=== PATIENT | female | born 1960 | race Caucasian/White ===

== ENCOUNTER 2019-11-19 15:08 | Outpatient (CLI) | payer OTHER, SELFPAY ==
--- NOTE | ~2019-11-19 | XR_ITS ---
XR chest 2V DATE: 11/19/2019 15:39 INDICATION: Cough, congestion, shortness of breath and fever for 3 weeks TECHNIQUE: PA and lateral views COMPARISON: None FINDINGS: Normal heart size. No hilar or mediastinal enlargement. No pulmonary infiltrate or consolid ation, pleural effusion or pulmonary vascular congestion or pneumothorax. IMPRESSION: No active cardiopulmonary disease Reviewed, dictated and finalized at location B. DESIGNER
== END 2019-11-19 15:09 | disposition home or self-care (01) ==
LOC: ANHIMG 15:13
PROVIDERS: PCP Internal Medicine; Visit Provider Internal Medicine
DX: R06.02 Shortness of breath (principal)
CPT/HCPCS: 71046

== ENCOUNTER 2019-11-20 11:00 | Outpatient (CLI) | payer OTHER, SELFPAY ==
--- NOTE | ~2019-11-20 | CT_ITS ---
EXAMINATION:CT chest wo con DATE: 11/20/2019 11:25 INDICATION: Shortness of breath and cough. TECHNIQUE: Computed tomography (CT) of the chest was performed without intravenous contrast. Automate d exposure control and iterative reconstruction technique were employed. The dose-length product (DLP ) was 156.12 mGy-cm. COMPARISON: Chest 2 views 11/19/2019 FINDINGS: The lungs demonstrate mild atelectasis. A calcified right lung nodule is consistent with ol d granulomatous disease. There is a small right pleural effusion. The heart size is normal. No perica rdial effusion. There are no pathologically enlarged lymph nodes. There is mild thoracic spondylosis. IMPRESSION: 1. Small right pleural effusion. Reviewed, dictated and finalized at location A. RUCTIONAL TECHNOLOGIST
[2019-11-20 12:28] LABS: Basophils Absolute Auto 0.1 K/mm3 (0.0-0.1); Basophils Percent Auto 0.5 % (0.2-1.2); Eosinophils Absolute Auto 0.1 K/mm3 (0-0.3); Eosinophils Percent Auto 1.3 % (0-4.4); Hemoglobin 12.4 g/dL (12.0-15.0); Immature Granulocyte Absolute 0.04 K/mm3 (0.00-0.031); Immature Granulocyte Percent A 0.4 % (0-0.5); Lymphocytes Absolute Auto 1.44 K/mm3 (0.9-3.2); Lymphocytes Percent Auto 14.7 % (18.3-44.2); Mean Corpuscular HGB Conc 32.6 g/dl (32-36); Mean Corpuscular Volume 107.3 fl (80-100); Mean Platelet Volume 9.8 fl (7.4-10.4); Monocytes Absolute Auto 0.7 K/mm3 (0.1-0.6); Monocytes Percent Auto 7.1 % (2.6-8.5); Neutrophils Absolute Auto 7.5 K/mm3 (1.3-6.7); Platelet Count Result 363 k/mm3 (150-375); Red Blood Count 3.54 M/mm3 (4.2-5.4); Red Cell Distribution Width 12.7 % (11.5-14.5); White Blood Count 9.8 K/mm3 (4.5-10.0)
[2019-11-20 12:41] LABS: Alanine Aminotransferase 15 U/L (4-35); Albumin Level 4.5 g/dL (3.5-5.1); Alkaline Phosphatase 93 U/L (38-126); Aspartate Amino Transferase 26 U/L (14-36); Bilirubin,Total 0.6 mg/dL (0.2-1.3); Blood Urea Nitrogen 9 mg/dL (7-17); Calcium 9.9 mg/dL (8.4-10.2); Carbon Dioxide 26 mmol/L (22-30); Chloride 99 mmol/L (98-107); Estimated Glomerular Filt Rate > 60; Glucose 107 mg/dL (65-105); Sodium 137 mmol/L (137-145)
[2019-11-20 15:21] LABS: Erythrocyte Sedimentation Rate 95 mm/hr (0-20)
[2019-11-22 11:06] LABS: CMV IgM Antibody <30.00 AU/mL (<30.00)
[2019-11-22 21:14] LABS: CRP, High Sensitivity >10.0 mg/L (***)
== END 2019-11-20 11:01 | disposition home or self-care (01) ==
PROVIDERS: PCP Internal Medicine; Visit Provider Internal Medicine
DX: B97.89 Other viral agents as the cause of diseases classified elsewhere (principal); J98.8 Other specified respiratory disorders; J90 Pleural effusion, not elsewhere classified
CPT/HCPCS: 36415; 36600; 71250; 80053; 85025; 85652; 86141; 86644; 86645; 87040

== ENCOUNTER 2019-11-21 12:47 | Outpatient (CLI) | payer OTHER, SELFPAY ==
[2019-11-21 13:16] LABS: Alveolar/Arterial O2 Gradient 48.1 mmHg; Base Excess ABG -0.7 mEq/l (+/-2.0); Carboxyhemoglobin 0.5 % THb (0-2.0); Device ROOM AIR; Fractional Inspired Oxygen 21 %; HCO3 ABG 22.8 mEq/l (22.0-26.0); Methemoglobin ABG 0.3 %THb (0-1.5); Oxygen Content ABG 16.5 %vol (16.0-22.0); Oxygen Saturation ABG 92.3 % (95.0-100.0); Oxyhemoglobin 89.7 % THb (90.0-100.0); PCO2 ABG 34.3 mmHg (35.0-45.0); PO2 ABG 60.6 mmHg (80.0-100.0); PO2 FiO2 Ratio Arterial Blood 2.89 %; Reduced Hemoglobin 9.5 %THb (0-5.0); Site Drawn RIGHT BRACHIAL; Total Hemoglobin 13.1 g/dL (12.0-18.0); pH ABG 7.441 (7.350-7.450)
== END 2019-11-21 12:48 | disposition home or self-care (01) ==
PROVIDERS: PCP Internal Medicine; Visit Provider Internal Medicine
DX: R06.02 Shortness of breath (principal); B97.89 Other viral agents as the cause of diseases classified elsewhere; J98.8 Other specified respiratory disorders; R50.9 Fever, unspecified
CPT/HCPCS: 36600; 82375; 82805; 83050

== ENCOUNTER 2019-11-22 13:13 | Outpatient (CLI) | payer OTHER, SELFPAY ==
[2019-11-22 13:39] LABS: D Dimer 1.02 ug/mL (<0.48)
== END 2019-11-22 13:14 | disposition home or self-care (01) ==
LOC: ANHLAB 13:15
PROVIDERS: PCP Internal Medicine; Visit Provider Internal Medicine
DX: R06.02 Shortness of breath (principal)
CPT/HCPCS: 36415; 85380

== ENCOUNTER 2019-11-23 16:36 | Outpatient (CLI) | payer OTHER, SELFPAY ==
--- NOTE | ~2019-11-23 | CT_ITS ---
EXAMINATION: CTA chest PE protocol DATE: 11/23/2019 18:10 INDICATION: Shortness of breath TECHNIQUE: Computed tomography (CT) pulmonary angiogram of the chest was performed with 100 mL Omnipa que-350 intravenous contrast. Additional 3D reconstructions utilizing coronal maximum intensity proje ction (MIP) were performed. Automated exposure control and iterative reconstruction technique were em ployed. The dose-length product was 378.51 mGy-cm. COMPARISON: 11/20/2019 FINDINGS: Good contrast opacification of the pulmonary arteries. There is mild streak artifact from dense contr ast in the superior vena cava and right atrium. Minimal scattered respiratory motion artifact which d oes not significantly limit evaluation. No pulmonary embolism. Mild atelectasis at the posterior sulc i of the bilateral lower lobes. Calcified right upper lobe nodule consistent with old granulomatous d isease. Trace right pleural effusion, decreased since prior study. Heart size is normal. No pericardi al effusion. Thoracic aorta is normal in caliber with no dissection. 1.8 x 1.2 cm likely reactive rig ht hilar lymph node. No other pathologically enlarged thoracic lymphadenopathy. Mild thoracic spondyl osis. IMPRESSION: 1. No pulmonary embolism. 2. Interval decrease in size of a now trace right pleural effusion. 3. Mildly enlarged likely reactive right hilar lymph node. Reviewed, dictated and finalized at location A. MANAGER
== END 2019-11-23 16:37 | disposition home or self-care (01) ==
LOC: ANHIMG 16:38
PROVIDERS: PCP Internal Medicine; Visit Provider Internal Medicine
DX: R06.02 Shortness of breath (principal); J90 Pleural effusion, not elsewhere classified; R59.0 Localized enlarged lymph nodes
CPT/HCPCS: 71275; Q9967

== ENCOUNTER → 2020-05-28 13:20 | Outpatient (CLI) | payer OTHER, SELFPAY ==
--- NOTE | ~2020-05-28 | DEXA_ITS ---
Bone Density Report Name: Perlita Amezcua Age: 59 Sex: Female Ethnicity: White Date of : 1960 Indication: monitoring treatment; height loss; hysterectomy; postmenopausal Referring Provider: Janki, Ayala Study: Bone densitometry was performed. Exam Date: May 28, 2020 Accession number: [id number] Bone Density: Region BMD T-score Z-score Classification AP Spine (L1-L4) 1.205 1.4 2.8 Normal Femoral Neck (Left) 0.922 0.7 1.9 Normal Total Hip (Left) 1.030 0.7 1.6 Normal Femoral Neck (Right) 0.886 0.3 1.6 Normal Total Hip (Right) 1.052 0.9 1.8 Normal Total Hip Mean 1.041 0.8 1.7 Normal World Health Organization criteria for BMD impression classify patients as: Normal (T-score at or above -1.0), Osteopenia (T-score between -1.0 and -2.5), or Osteoporosis (T-score at or below -2.5). 10-year Fracture Risk: FRAX not reported because: All T-scores for Spine Total, Hip Total, Femoral Neck at or above -1.0 Previous Exams: Region Exam Age BMD T-score BMD Change BMD Change Date g/cm2 vs Baseline vs Previous AP Spine(L1-L4) 05/28/2020 59 1.205 1.4 -0.056* -0.045* 12/19/2015 55 1.250 1.8 -0.011 -0.011 08/31/2012 52 1.261 1.9 Total Hip(Left) 05/28/2020 59 1.030 0.7 -0.001 -0.005 12/19/2015 55 1.036 0.8 0.004 0.004 08/31/2012 52 1.031 0.7 Total Hip(Right) 05/28/2020 59 1.052 0.9 0.000 -0.008 12/19/2015 55 1.060 1.0 0.008 0.008 08/31/2012 52 1.052 0.9 *Denotes significance at 95% confidence level, LSC for AP Spine = 0.022 g/cm2, LSC for Total Hip = 0.027 g/cm2 Clinical Information Provided by Patient: Is being treated for osteoporosis Has used the following medications: HRT (i.e. estrogen/hormone therapy), Vitamin D, MTV Has the following medical conditions: Hysterectomy, cervical cancer in her 30's Patient maximum height was 71 Menopause Age: 36 No regular weight bearing exercise Drinks caffeinated beverages Onset of menses at age 14 Number of children 0 Impression: The patient has normal bone mass. The BMD for the AP Spine(L1-L4) decreased, changing by -0.045 since the last DXA exam. Discussion: SIGNIFICANT BONE LOSS OBSERVED. Adherence to therapy (including calcium and vitamin D intake) should be assessed. If compliance is not a factor, review management and exclus
--- NOTE | ~2020-05-28 | MM_ITS ---
EXAMINATION: MM screening toney BI w glendy HISTORY: Screening TECHNIQUE: Craniocaudal and mediolateral oblique 3-D tomosynthesis images were obtained and synthetic 2-D images were generated. CAD analysis was submitted and interpreted. COMPARISON: Comparison to multiple prior studies sequentially, with oldest reviewed study dated 01/2016. BREAST PARENCHYMAL COMPOSITION: There are scattered areas of fibroglandular density. FINDINGS: There is no evidence of suspicious mass, calcification, or architectural distortion to sugg est malignancy in either breast. There has been no suspicious interval change. IMPRESSION: 1. No mammographic evidence of malignancy. 2. Recommend routine screening mammography in one year. BI-RADS Category 1: Negative Reviewed, dictated and finalized at location A.
== END ==
PROVIDERS: PCP Internal Medicine; Referring Provider Obstetrics & Gynecology Gynecology; Visit Provider Nurse Practitioner
DX: Z12.31 Encounter for screening mammogram for malignant neoplasm of breast (principal); Z78.0 Asymptomatic menopausal state
CPT/HCPCS: 77063; 77067; 77080

== ENCOUNTER → 2021-05-29 16:01 | Outpatient (CLI) | payer OTHER, BC, SELFPAY ==
--- NOTE | ~2021-05-29 | MM_ITS ---
EXAMINATION: MM screening [facility] BI w glendy HISTORY: Screening mammogram TECHNIQUE: Craniocaudal and mediolateral oblique 3-D tomosynthesis images were obtained and synthetic 2-D images were generated. CAD analysis was submitted and interpreted. COMPARISON: 05/28/2020, 03/15/2019, 02/24/2019 BREAST PARENCHYMAL COMPOSITION: There are scattered areas of fibroglandular density. FINDINGS: There is no evidence of suspicious mass, calcification, or architectural distortion to sugg est malignancy in either breast. There has been no suspicious interval change. IMPRESSION: 1. No mammographic evidence of malignancy. 2. Recommend routine screening mammography in one year. BI-RADS Category 1: Negative Reviewed, dictated and finalized at location A.
== END ==
PROVIDERS: PCP Internal Medicine; Visit Provider Nurse Practitioner
DX: Z12.31 Encounter for screening mammogram for malignant neoplasm of breast (principal)
CPT/HCPCS: 77063; 77067

== ENCOUNTER → 2022-05-31 14:58 | Outpatient (CLI) | payer BC, SELFPAY ==
--- NOTE | ~2022-05-31 | MM_ITS ---
EXAMINATION: MM screening toney BI w glendy HISTORY: Screening mammogram TECHNIQUE: Craniocaudal and mediolateral oblique 3-D tomosynthesis images were obtained and synthetic 2-D images were generated. CAD analysis was submitted and interpreted. COMPARISON: 05/29/2021, 05/28/2020, 03/15/2019 bilateral screening mammogram examinations BREAST PARENCHYMAL COMPOSITION: There are scattered areas of fibroglandular density. FINDINGS: There is no evidence of suspicious mass, calcification, or architectural distortion to sugg est malignancy in either breast. There has been no suspicious interval change. IMPRESSION: 1. No mammographic evidence of malignancy. 2. Recommend routine screening mammography in one year. BI-RADS Category 1: Negative Reviewed, dictated and finalized at location A.
== END ==
PROVIDERS: PCP Internal Medicine; Visit Provider Nurse Practitioner
DX: Z12.31 Encounter for screening mammogram for malignant neoplasm of breast (principal)
CPT/HCPCS: 77063; 77067

== ENCOUNTER 2023-03-18 00:26 | Day surgery (SDC) | payer BC, SELFPAY ==
[2023-03-04 10:14] VITALS: BMI 25.9
[2023-03-18 07:44] VITALS: BP 146/79; PULSE 65; RESP 16; TEMP 36.1; O2SAT 99
[2023-03-18] MEDS: LACTATED RINGERS 1,000 ML 150 ML IV CONT (07:51)
--- NOTE | 2023-03-18 08:08 | PM.HPGS ---
History of Present Illness History of Present Illness Consent: Risks, benefits, and alternatives have been discussed and questions answered. Patient agrees to proceed with procedure. Chief complaint: neoplasm screening Narrative: Perlita De Luna is a 62 year old female Presents for screening colonoscopy. Patient's current weight appetite and bowel movements are normal. She denies abdominal pain. Patient has had no bleeding. Family history is noncontributory. Previous colonoscopy 10 years ago was unremarkable. Review of Systems Review of Systems: Review of systems noncontributory. [facility] Past Medical History Medical History Chronic pain of left knee Dyslipidemia Hypothyroidism IFG (impaired fasting glucose) Megaloblastic anemia Surgical History Surgical History Hx of appendectomy Family History Family History Grandparent Malignant neoplasm of prostate Family history of malignant neoplasm of breast Family history of congestive heart failure Sibling Diabetes mellitus Social History Social History Smoking packs per day: 0.5 Smoking cigarettes per day: 10.0 Years smoked: 25 Smoking pack-years: 12.50 Smoking status: Former smoker Tobacco type: cigarettes Second hand tobacco smoke exposure: No Smoking end date: 10/17/05 Alcohol intake: current Alcohol use details: on occasion Substance use: never Substance use type: does not use Lack of Transportation: No Lack of Food: Never True Current Housing: I Have Housing Concerned About Future Housing: No Difficulty Paying Gas/Electric Bills: No Difficulty Paying for Meds: No Currently Unemployed: No Education: Trade/Vocational Certificate Difficulty w/ Childcare or Family Care: No Living arrangements: with family Spiritual care concerns: No Meds Home Medications and Allergies Home Medications Medication Instructions Recorded Confirmed Type vitamin E (dl, acetate) 180 mg 400 unit PO DAILY 10/16/19 03/18/23 History (400 unit) capsule B-complex with vitamin C (Super B 1 tablet PO DAILY 04/22/20 03/18/23 History Complex-Vitamin C tablet) levothyroxine 100 mcg tablet 100 mcg PO DAILY 12/24/20 03/18/23 History cholecalciferol (vitamin D3) 125 125 mcg PO DAILY 02/15/22 03/18/23 History mcg (5,000 unit) capsule InspiraChamber (inhalational #1 ea 03/03/23 03/18/23 Rx spacing device) Symbicort 160 mcg-4.5 2 puff inhalation Q12H 1 month 03/03/23 03/18/23 Rx mcg/actuation HFA aerosol inhaler #10.2 grams (budesonide-formoterol) ascorbate calcium (vitamin C) 500 1 g PO DAILY 03/03/23 03/18/23 History mg tablet cyanocobalamin (vitamin B-12) 5,000 mcg PO DAILY 03/03/23 03/18/23 History 2,500 mcg tablet estradiol 1 mg tablet 0.5 mg PO DAILY 03/03/23 03/18/23 History ezetimibe 10 mg tablet (Zetia) 10 mg PO DAILY #90 tabs 03/03/23 03/18/23 Rx fluticasone propionate 50 2 spray intranasal DAILY #16 mL 03/03/23 03/18/23 Rx mcg/actuation nasal spray,suspension (Flonase Allergy Relief) krill 350 mg-omega-3 90 mg-dha 24 1 cap PO DAILY #1 cap 03/03/23 03/18/23 Rx mg-epa 50 [id number] capsule (MegaRed [place]-3 Krill Oil) rosuvastatin 40 mg tablet 40 mg PO DAILY #90 tabs 03/03/23 03/18/23 Rx Allergies Allergy/AdvReac Type Severity Reaction Status Date / Time No Known Allergies Allergy Verified 03/18/23 07:41 Vital Signs Vital Signs - 24 hr 03/18/23 07:44 Temperature 97.0 F L Pulse Rate 65 Respiratory Rate 16 Blood Pressure 146/79 H Pulse Oximetry 99 Oxygen Delivery Room Air Exam Narrative: Physical exam reveals patient to be alert. Vital signs stable. HEENT exam is unremarkable. Patient is anicteric. L
--- NOTE | 2023-03-18 08:14 | WPDANESEPPF ---
Anes - Initial Pre Proc Eval Procedure: Operation Date: 03/18/23 08:45 Proposed Procedures p Screening Colonoscopy - Matt Lacy MD Date/Time: 03/18/23 08:14 Surgeon: Matt Lacy MD Pre Op Diagnosis: neoplasm screening Patient Data Age: 62 Gender: F Height: 1.78 m Weight: 80.7 kg Last Vital Signs Temp 97.0 F L 03/18/23 07:44 Pulse 65 03/18/23 07:44 Resp 16 03/18/23 07:44 BP 146/79 H 03/18/23 07:44 Pulse Ox 99 03/18/23 07:44 O2 Del Method Room Air 03/18/23 07:44 Allergies Allergy/AdvReac Type Severity Reaction Status Date / Time No Known Allergies Allergy Verified 03/18/23 07:41 Home Medications Medication Instructions Recorded Confirmed Type vitamin E (dl, acetate) 180 mg 400 unit PO DAILY 10/16/19 03/18/23 History (400 unit) capsule B-complex with vitamin C (Super B 1 tablet PO DAILY 04/22/20 03/18/23 History Complex-Vitamin C tablet) levothyroxine 100 mcg tablet 100 mcg PO DAILY 12/24/20 03/18/23 History cholecalciferol (vitamin D3) 125 125 mcg PO DAILY 02/15/22 03/18/23 History mcg (5,000 unit) capsule InspiraChamber (inhalational #1 ea 03/03/23 03/18/23 Rx spacing device) Symbicort 160 mcg-4.5 2 puff inhalation Q12H 1 month 03/03/23 03/18/23 Rx mcg/actuation HFA aerosol inhaler #10.2 grams (budesonide-formoterol) ascorbate calcium (vitamin C) 500 1 g PO DAILY 03/03/23 03/18/23 History mg tablet cyanocobalamin (vitamin B-12) 5,000 mcg PO DAILY 03/03/23 03/18/23 History 2,500 mcg tablet estradiol 1 mg tablet 0.5 mg PO DAILY 03/03/23 03/18/23 History ezetimibe 10 mg tablet (Zetia) 10 mg PO DAILY #90 tabs 03/03/23 03/18/23 Rx fluticasone propionate 50 2 spray intranasal DAILY #16 mL 03/03/23 03/18/23 Rx mcg/actuation nasal spray,suspension (Flonase Allergy Relief) krill 350 mg-omega-3 90 mg-dha 24 1 cap PO DAILY #1 cap 03/03/23 03/18/23 Rx mg-epa 50 [id number] capsule (MegaRed [place]-3 Krill Oil) rosuvastatin 40 mg tablet 40 mg PO DAILY #90 tabs 03/03/23 03/18/23 Rx Patient hx anesthesia problems: none Family hx anesthesia problems: none Results Review: All pre-operative results and documents have been reviewed as part of the pre-operative evaluation. [facility] Past Medical History Medical History Chronic pain of left knee Dyslipidemia Hypothyroidism IFG (impaired fasting glucose) Megaloblastic anemia Surgical History Surgical History Hx of appendectomy Family History Family History Grandparent Malignant neoplasm of prostate Family history of malignant neoplasm of breast Family history of congestive heart failure Sibling Diabetes mellitus Social History Social History Smoking packs per day: 0.5 Smoking cigarettes per day: 10.0 Years smoked: 25 Smoking pack-years: 12.50 Smoking status: Former smoker Tobacco type: cigarettes Second hand tobacco smoke exposure: No Smoking end date: 10/17/05 Alcohol intake: current Alcohol use details: on occasion Substance use: never Substance use type: does not use Lack of Transportation: No Lack of Food: Never True Current Housing: I Have Housing Concerned About Future Housing: No Difficulty Paying Gas/Electric Bills: No Difficulty Paying for Meds: No Currently Unemployed: No Education: Trade/Vocational Certificate Difficulty w/ Childcare or Family Care: No Living arrangements: with family Spiritual care concerns: No Anes - Eval Final PreProcedure Day of Procedure 03/18/23 08:14 Patient weight: obese Heart: regular rate and rhythm Lungs: clear to auscultation Airway: Mallampati scale class II Neurological: alert and oriented Last oral intake: >/= 8 hours ASA classific
[2023-03-18 09:00] VITALS: BP 135/74; PULSE 70; RESP 20; O2SAT 99
[2023-03-18 09:10] VITALS: BP 131/77; PULSE 68; RESP 20; O2SAT 100
[2023-03-18 09:20] VITALS: BP 149/84; PULSE 67; RESP 18; O2SAT 100
== END 2023-03-18 09:25 | disposition home or self-care (01) ==
PROVIDERS: PCP Nurse Practitioner Family; Visit Provider Internal Medicine Gastroenterology
PROC: 0DJD8ZZ Inspection of Lower Intestinal Tract, Via Natural or Artificial Opening Endoscopic (ICD-10-PCS; CPT 45378; principal; 2023-03-18 08:45)
DX: Z12.11 Encounter for screening for malignant neoplasm of colon (principal); D12.5 Benign neoplasm of sigmoid colon; K64.8 Other hemorrhoids; Z79.51 Long term (current) use of inhaled steroids; E78.5 Hyperlipidemia, unspecified; E03.9 Hypothyroidism, unspecified; D53.1 Other megaloblastic anemias, not elsewhere classified; Z87.891 Personal history of nicotine dependence
CPT/HCPCS: 45385; 88305; J2704; J7120

== ENCOUNTER 2023-08-16 13:56 | Outpatient (CLI) | payer BC, SELFPAY ==
--- NOTE | ~2023-08-16 | CT_ITS ---
EXAMINATION: CTA BRAIN/CAROTID DATE: 08/16/2023 14:50 INDICATION: Weakness TECHNIQUE: Computed tomographic angiography (CTA) of the head and neck was performed with 100 mL Omni paque-350 intravenous contrast. Multiplanar reconstructions and maximum intensity projection 3D-recon structions of the carotid arteries and of the intracranial arteries were created by the technologist on a separate workstation. Precontrast CT of the head was also obtained. Automated exposure control and iterative reconstruction technique were employed.The dose-length product was 1745.58 mGy-cm. COMPARISON: None. FINDINGS: Carotid arteries: Small amount of atherosclerotic plaque without hemodynamically significant stenosis at the normal faye iber aortic arch and the origins of the great vessels arising from the arch. There is there is athero sclerotic plaque with 0% stenosis of the both the right and left carotid bulbs relative to normal dis ria artery lumen diameter (NASCET criteria). The left vertebral artery is dominant with no evident he modynamically significant stenosis along either a right vertebral arteries. Head: Hyperdense relatively acute intraparenchymal hemorrhage in the anterior cephalad right cerebellar hem isphere which measures approximately 4.3 x 1.5 x 2.0 cm. There is a extension across the midline wher e there is a significantly smaller 13 x 12 x 8 mm hematoma in the cephalad anteromedial left cerebell ar hemisphere. There is some surrounding cerebellar edema which does not result in significant mass e ffect. There is no evident active contrast extravasation on the post contrast images. No acute infarc tion or abnormal extra axial fluid collection. There is mild scattered white matter hypoattenuation c onsistent with chronic small vessel ischemic disease. Ventricles are normal and symmetric. No mass/ma ss effect. The orbits, paranasal sinuses and mastoid air cells are normal. No abnormally enhancing br ain lesions. Intracranial arteries Minimal atherosclerotic calcification is at the bilateral carotid siphons without hemodynamically sig nificant stenosis. There is no hemodynamically significant stenosis in the vertebral, basilar and int ernal carotid arteries. Left vertebral artery is dominant. There are no aneurysms identified. Both A 1 and P1 segments are patent. There is also a patent anterior communicating artery. Cerebral arterial arborization appears symmetric. IMPRESSION: 1. Right cerebellar intraparenchymal hemorrhage with minimal extension across midline into the left c erebellum. The patient was transferred the emergency department and Dr. Villagomez discussed these find ings with Dr. Shine at 2:50 PM. This was also discussed with the ordering medical hospital sales Lauren gomez at 3:02 PM. 2. Small amount of atherosclerotic plaque with 0% stenosis of the right and left carotid bulbs relati ve to normal distal artery lumen diameter (NASCET criteria). 3. Otherwise unremarkable cerebral CT angiogram with no hemodynamically significant stenosis, aneurys m or evident active contrast extravasation. 4. Mild scattered white matter hypoattenuation consistent with chronic small vessel ischemic disease. Reviewed, dictated and finalized at location A. IMPRESSION: 1. Right cerebellar intraparenchymal hemorrhage with minimal extension across m idline into the left cerebellum. The patient was transferred the emergency depa rtment and Dr. Villagomez discussed these findings with Dr. Shine at 2:50 PM. Thi s was also discussed with the ordering medical hospital sales Lauren Luu at 3:02 PM . 2. Small amount of atherosclerotic plaque with 0% stenosis of the right and lef t carotid bulbs relative to normal distal artery lumen diameter (NASCET criteri a). 3. Otherwise unremarkable cerebral CT angiogram with no hemodynamical
[2023-08-16 14:42] LABS: Estimated Glomerular Filt Rate > 60
== END 2023-08-16 13:57 | disposition home or self-care (01) ==
PROVIDERS: PCP Nurse Practitioner Family; Visit Provider Nurse Practitioner Family
DX: I61.4 Nontraumatic intracerebral hemorrhage in cerebellum (principal); R53.1 Weakness
CPT/HCPCS: 70496; 70498; Q9967

== ENCOUNTER 2023-08-16 14:54 | Emergency (ER) | payer BC, SELFPAY ==
--- NOTE | 2023-08-16 14:59 | ECG_ITS ---
Measurements Intervals [place] Rate: 68 P: 42 NC: 211 QRS: 6 QRSD: 84 T: 38 QT: 405 QTc: 431 Interpretive Statements SINUS RHYTHM WITH FIRST DEGREE AV BLOCK BASELINE ARTIFACT- I, II, III, AVR, AVL, AVF BORDERLINE ECG COMPARED TO ECG 08/02/2019 13:07:04 NO SIGNIFICANT CHANGES Electronically Signed On 08-17-2023 6:44:20 CDT by Eder Cadena D.O.
[2023-08-16 15:07] VITALS: BP 191/95; PULSE 73; RESP 18; TEMP 36.3; O2SAT 99
--- NOTE | 2023-08-16 15:10 | ED.NEUROSD ---
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 Patient was seen by her family physician today who ordered a CT scan of the head which showed intraparenchymal hemorrhage. Patient came from the radiology department to our emergency room via wheelchair history of hypothyroidism, hysterectomy secondary to cancer, hyperlipidemia, drinks occasionally, does not smoke or uses drugs. Currently her main complaint is right frontal headache with nausea and unsteady balance Related Data Home Medications Medication Instructions Recorded Confirmed vitamin E (dl, acetate) 180 mg 400 unit PO DAILY 10/16/19 03/18/23 (400 unit) capsule B-complex with vitamin C (Super B 1 tablet PO DAILY 04/22/20 03/18/23 Complex-Vitamin C tablet) levothyroxine 100 mcg tablet 100 mcg PO DAILY 12/24/20 03/18/23 cholecalciferol (vitamin D3) 125 125 mcg PO DAILY 02/15/22 03/18/23 mcg (5,000 unit) capsule ascorbate calcium (vitamin C) 500 1 g PO DAILY 03/03/23 03/18/23 mg tablet cyanocobalamin (vitamin B-12) 5,000 mcg PO DAILY 03/03/23 03/18/23 2,500 mcg tablet estradiol 1 mg tablet 0.5 mg PO DAILY 03/03/23 03/18/23 Allergies Allergy/AdvReac Type Severity Reaction Status Date / Time No Known Allergies Allergy Verified 08/16/23 12:29 Review of Systems Review of Systems: All systems reviewed & are unremarkable except as noted in HPI and below PMFSH Past Medical History Medical History Chronic pain of left knee Dyslipidemia Hypothyroidism IFG (impaired fasting glucose) Megaloblastic anemia Surgical History Surgical History Hx of appendectomy Family History Family History Grandparent Malignant neoplasm of prostate Family history of malignant neoplasm of breast Family history of congestive heart failure Sibling Diabetes mellitus Social History Social History Smoking packs per day: 0.5 Smoking cigarettes per day: 10.0 Years smoked: 25 Smoking pack-years: 12.50 Smoking status: Former smoker Tobacco type: cigarettes Second hand tobacco smoke exposure: No Smoking end date: 10/17/05 Alcohol intake: current Alcohol use details: on occasion Substance use: never Substance use type: does not use Lack of Transportation: No Lack of Food: Never True Current Housing: I Have Housing Concerned About Future Housing: No Difficulty Paying Gas/Electric Bills: No Difficulty Paying for Meds: No Currently Unemployed: No Education: Decline to Answer Difficulty w/ Childcare or Family Care: No Living arrangements: with family Spiritual care concerns: No Exam Narrative: General appearance: Well-developed, well-nourished Skin: Normal color Head: Normocephalic, nontraumatic Eyes: Clear conjunctiva ENT: Oropharynx normal, ears normal, nose normal Neck: Supple, nontender Chest and respiratory: Airway patent, no respiratory distress, no accessory muscle use Heart: Regular rate/rhythm Abdomen: Soft, nontender, no organomegaly, quiet bowel sounds Vascular: Normal peripheral pulses, normal capillary refill. Musculoskeletal: Normal range of motion, nontender back Neurologic: Alert and oriented ?3, BEDSPREAD FOLDER is normal as tested, no gross motor deficit
[2023-08-16 15:45] VITALS: BP 162/102; PULSE 79
[2023-08-16] MEDS: niCARdipine 20 MG/200 ML 20 MG/200 ML BAG 50 MG IV CONT (15:45)
[2023-08-16] MEDS: LABETALOL HCL INJ 100 MG/20 ML VIAL 20 MG IV PUSH (15:46)
[2023-08-16 16:35] VITALS: BP 139/78; PULSE 77
--- NOTE | 2023-08-16 16:35 | PC.NURSE ---
Dr. Sihne request pts B/P to remain systolic 140. Request drip turned down to 2.5mg
== END 2023-08-16 16:00 | disposition short-term general hospital (02) ==
PROVIDERS: Emergency Provider Emergency Medicine; PCP Nurse Practitioner Family
DX: I61.9 Nontraumatic intracerebral hemorrhage, unspecified (principal); R29.700 NIHSS score 0; E03.9 Hypothyroidism, unspecified; E78.5 Hyperlipidemia, unspecified; D53.1 Other megaloblastic anemias, not elsewhere classified; Z85.41 Personal history of malignant neoplasm of cervix uteri; Z87.891 Personal history of nicotine dependence; Z90.710 Acquired absence of both cervix and uterus
CPT/HCPCS: 70496; 70498; 93005; 96365; 96375; 99285; Q9967

== ENCOUNTER → 2023-10-31 14:08 | Outpatient (CLI) | payer BC, SELFPAY ==
--- NOTE | ~2023-10-31 | MM_ITS ---
EXAMINATION: MM screening toney BI w glendy HISTORY: Screening TECHNIQUE: Craniocaudal and mediolateral oblique 3-D tomosynthesis images were obtained and synthetic 2-D images were generated. CAD analysis was submitted and interpreted. COMPARISON: Comparison to multiple prior studies sequentially, with oldest reviewed study dated 01/14. BREAST PARENCHYMAL COMPOSITION: Breast composed of scattered areas of fibroglandular density FINDINGS: There is a developing asymmetry in the lower outer quadrant of the right breast posteriorly . The left breast is stable without evidence for malignancy. IMPRESSION: 1. Developing right breast asymmetry. 2. Additional mammographic views and possible breast ultrasound are recommended. BI-RADS Category 0: Incomplete: Needs additional imaging evaluation. Reviewed, dictated and finalized at location A. ISSIONER OF INTERNAL REVENUE IMPRESSION: 1. Developing right breast asymmetry. 2. Additional mammographic views and possible breast ultrasound are recommended . BI-RADS Category 0: Incomplete: Needs additional imaging evaluation.
== END ==
PROVIDERS: PCP Nurse Practitioner; Visit Provider Nurse Practitioner
DX: Z12.31 Encounter for screening mammogram for malignant neoplasm of breast (principal); R92.8 Other abnormal and inconclusive findings on diagnostic imaging of breast
CPT/HCPCS: 77063; 77067

== ENCOUNTER → 2023-12-02 08:18 | Outpatient (CLI) | payer BC, SELFPAY ==
--- NOTE | ~2023-12-02 | MMUS_ITS ---
EXAMINATION: MM diagnostic toney RT w glendy, US breast RT limited HISTORY: Developing asymmetry reported in the lower outer quadrant of the right breast on 10/31/2023 s creening mammogram TECHNIQUE: Additional 3-D tomosynthesis images of the right breast were performed and synthetic 2-D i mages were generated. CAD analysis was submitted and interpreted. High resolution right breast ultras ound was performed from 6-10 o'clock. COMPARISON: 08/29/2024, 05/31/2022, 05/29/2021, 05/28/2020 bilateral screening mammogram examinations FINDINGS: MAMMOGRAPHIC FINDINGS: No definite significant change or significant new or developing density is noted compared to prior ma mmograms dating back to 05/28/2020. ULTRASOUND: 6:00 3 cm from nipple: Approximately 1.3 x 3.6 mm hypoechoic area is noted, without suspicious shadow ing, with minimal adjacent color flow signal. 6 month follow-up ultrasound imaging with attention to this area is recommended 8.-9:00 4 cm from nipple approximately 2 x 4 mm sonolucency with through transmission posterior enhan cement, likely a small cyst 10:00 5 cm from nipple: 4.3 x 3.2 x 2.9 mm mildly irregular lesion with out internal vascularity or p osterior shadowing 10:00 4 cm from nipple: Bilobed parallel circumscribed sonolucency measuring 2.4 x 4.9 x 6.7 mm, with out internal vascularity, with through transmission, consistent with cyst IMPRESSION: 1. Probable benign findings 2. 6 month diagnostic right mammogram and right breast ultrasound follow-up are recommended BI-RADS category 3, probably benign findings. Reviewed, dictated and finalized at location B. ADJUSTER IMPRESSION: 1. Probable benign findings 2. 6 month diagnostic right mammogram and right breast ultrasound follow-up are recommended BI-RADS category 3, probably benign findings.
== END ==
PROVIDERS: PCP Obstetrics & Gynecology Gynecology; Visit Provider Obstetrics & Gynecology Gynecology
DX: R92.8 Other abnormal and inconclusive findings on diagnostic imaging of breast (principal)
CPT/HCPCS: 76642; 77061; 77065; G0279

== ENCOUNTER 2024-06-04 07:52 | Outpatient (CLI) | payer BC, SELFPAY ==
--- NOTE | ~2024-06-04 | MMUS_ITS ---
EXAMINATION: MM diagnostic toney RT w glendy, US breast RT complete HISTORY: Follow-up right breast asymmetries TECHNIQUE: Additional 3-D tomosynthesis images of the right breast were performed and synthetic 2-D i mages were generated. CAD analysis was submitted and interpreted. High resolution complete right mikala st ultrasound was performed. COMPARISON: Comparison to multiple prior studies sequentially, with oldest reviewed study dated 03/15. BREAST PARENCHYMAL COMPOSITION: Not dense: There are scattered areas of fibroglandular density. FINDINGS: MAMMOGRAPHIC FINDINGS: There are persistent periareolar asymmetries of the right breast. There are no suspicious calcificati ons or architectural distortion. ULTRASOUND: Complete US of all 4 quadrants of the breast/s and retroareolar region was reviewed. There are small simple cyst of the right breast at 4 and 10:00 position measuring 4 mm or less. IMPRESSION: 1. No evidence for malignancy in the right breast. Benign findings. 2. Routine yearly screening mammogram and regular clinical breast examination are recommended. BI-RADS Category 2: Benign finding(s). Reviewed, dictated and finalized at location B. IMPRESSION: 1. No evidence for malignancy in the right breast. Benign findings. 2. Routine yearly screening mammogram and regular clinical breast examination a re recommended. BI-RADS Category 2: Benign finding(s).
== END 2024-06-04 07:53 ==
PROVIDERS: PCP Obstetrics & Gynecology Gynecology; Visit Provider Nurse Practitioner Women's Health
DX: N63.10 Unspecified lump in the right breast, unspecified quadrant (principal); N63.20 Unspecified lump in the left breast, unspecified quadrant
CPT/HCPCS: 76641; 77061; 77065; G0279

== ENCOUNTER 2024-11-02 14:43 | Outpatient (CLI) | payer OTHER, SELFPAY ==
--- NOTE | ~2024-11-02 | MM_ITS ---
EXAMINATION: MM screening [facility] BI w glendy HISTORY: Screening TECHNIQUE: Craniocaudal and mediolateral oblique 3-D tomosynthesis images were obtained and synthetic 2-D images were generated. CAD analysis was submitted and interpreted. COMPARISON: Comparison to multiple prior studies sequentially, with oldest reviewed study dated 05/28. BREAST PARENCHYMAL COMPOSITION: Not dense: There are scattered areas of fibroglandular density. FINDINGS: There is no evidence of suspicious mass, calcification, or architectural distortion to sugg est malignancy in either breast. There has been no suspicious interval change. IMPRESSION: 1. No mammographic evidence of malignancy. 2. Recommend routine screening mammography in one year. BI-RADS Category 1: Negative Reviewed, dictated and finalized at location A. 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
== END 2024-11-02 14:44 | disposition home or self-care (01) ==
PROVIDERS: PCP Obstetrics & Gynecology Gynecology; Visit Provider Nurse Practitioner
DX: Z12.31 Encounter for screening mammogram for malignant neoplasm of breast (principal)
CPT/HCPCS: 77063; 77067

== ENCOUNTER 2024-11-22 12:51 | Outpatient (CLI) | payer OTHER, SELFPAY ==
--- NOTE | ~2024-11-22 | XR_ITS ---
EXAMINATION: XR chest 2V 11/22/2024 13:13 INDICATION: Shortness of breath PROCEDURE: 2 view chest COMPARISON: 11/19/2019 FINDINGS: The lungs are clear. The cardiomediastinal silhouette is within normal limits. There are no pleural effusions. There is no pneumothorax suspected. IMPRESSION: 1: NO ACUTE CARDIOPULMONARY DISEASE. Reviewed, dictated and finalized at location B. ER MAKER HAND
--- OUTSIDE RECORDS SUMMARY | 2024-11-22 13:02 | XMS_ITS | Referral Summary ---
Author Organization [facility] [place] [address] Address [address] [place] [address] Care Team Providers Care Land Surveying Survey Worker Name Role Phone Blaise Lucas MD Primary Care Provider [phone] Allergies No known active allergies Social History Tobacco Use Types Packs/Day Years Used Date Smoking Tobacco: Never Assessed Personal Safety Answer Date Recorded Getting School Help Needed Not on file 12/30 Comments Unknown Sex and Gender Information Value Date Recorded Sex Assigned at Not on file Legal Sex Female 8:56 PM [employer] Gender Identity Not on file Sexual Orientation Not on file Last Filed Vital Signs Vital Sign Reading Time Taken Comments Blood Pressure 163/100 06/21/2018 7:09 PM CDT Pulse 73 06/21/2018 7:09 PM CDT Temperature 36.9 C (98.5 F) 06/21/2018 7:09 PM CDT Respiratory Rate - - Oxygen Saturation 100% 06/21/2018 7:09 PM CDT Inhaled Oxygen Concentration - - Weight 72.7 kg (160 lb 4.4 oz) 06/21/2018 7:09 P M CDT Height 177.8 cm (5' 10 ) 06/21/2018 7:09 PM CDT Body Mass Index 23 06/21/2018 7:09 PM CDT Plan of Treatment Not on file Insurance [facility] H[facility]/PPO Address: [address] [address] [place] [address] [facility] H[facility]/PPO Address: [address] [address] [place] [address] Care Teams Land Surveying Survey Worker Relationship Specialty Start Date End Date Blaise Lucas MD [address] [id number] PCP - General Internal Medicine 11/21/19
--- OUTSIDE RECORDS SUMMARY | 2024-11-22 13:02 | XMS_ITS | Continuity of Care Document ---
Author Organization [facility] Address [address] [place] [address] Phone Care Team Providers Care Bin Cleaner Name Role Phone Tate Adams MD Unavailable Unavailable Allergies, Adverse Reactions, Alerts Substance Reaction Status Criticality No Known Allergies Active No Inform ation Medications Medication Instructions Dosage Effective Dates (start - stop) Status Comments tizanidine 2 mg tablet take 1 po BID for muscle relaxation - Active meloxicam 15 mg tablet take 1 tablet (15MG) by oral route every day with food - Active estradiol 1 mg tablet take 1 tablet by oral route every day 1 MG - Active atorvastatin 10 mg tablet take 1 tablet by oral route every day 10 MG - Active Synthroid 88 mcg tablet take 1 tablet by oral route every day 88 MCG - Active Vitamin C 500 mg tablet - Active vitamin E 400 unit capsule - Active vitamin B complex capsule - Active Vitamin B-12 2,500 mcg sublingual tablet - Active VITAMIN D3-ALOE (unknown strength) Not Available - Active FISH OIL (unknown strength) Not Available - Active Procedures Procedure Date OFFICE/OUTPATIENT VISIT EST MRI SPI CANAL&CNTS CRV C-MATRL 18 OFFICE CONSULTATION RADEX ABHINAV COMPL MINIMUM 2 VIEWS 018 OFFICE CONSULTATION Advance Directives Directive Yes / No Effective Date File Name No Information Encounters Encounter Description Practice Location Reason(s) For Visit Diagnoses Date Provider Providers Copied on Encounter OFFICE/OUTPAT IENT VISIT EST [facility], [address], [place], [address], [place] tel:[phone] [facility] Neck pain (chief complaint) Radiculopathy , cervical regionDegener ation of cervical intervertebra l disc 8 Bryan Y[address]. [address] , [place], [place], [id number]. tel:[phone] [facility], [address] [facility] [address], [place], [address], [place] tel:[phone] [facility] Radiculopathy , cervical region 8 No Information Referring Provider: Tate Adams, [address], [place], [address] . tel:[phone] OFFICE CONSULTATION [facility], [address] [facility] [address] [facility] [address], [place], [address], [place] tel:[phone] [facility] Neck/right shoulder blade pain (chief complaint) Cervical radiculopathy Degeneration of cervical intervertebra l disc 8 Adams Tate. [address] , [place], [place], [id number]. tel:[phone] OFFICE CONSULTATION [facility], [address] [facility] [address], [place], [address], [place] tel:[phone] [facility] Pain in right shoulderCervi faye radiculopathy [address] Tc May. [address], [place], [place], [id number]. tel:[phone] Family History Family Member Type Diagnosis Age At Onset Sister Problem (finding) Diabetes mellitus Payers Payer name Insurance type Covered alliance party ID Authoriza tion(s) No Information Social History Type Description Quantity Date Captured Comments Alcohol Use Details Unknown Caffeine Use Details Unknown Tobacco Use Status Smoking Status No Information Sex Female Chief Complaint And Reason For Visit From encounter dated '09/06/2018 07:45'. Neck pain (chief complaint) Reason For Referral Reason For Referral No Information Plan Of Treatment Date Type Action Status Goal Tobacco cessation counseling completed Referral Ordered: MRI SPI CANAL&CNTS CRV C-MATRL spine, cervical Appointment date/timeframe: 08/28/2018 ordered Referral Ordered: MRI SPI CANAL&CNTS C-/C+ CRV Appointment date/timeframe: 07/14/2018 ordered Referral Ordered: RADCHARISMA LA COMPL MINIMUM 2 VIEWS RT ordered History Of Present Illness Encounter Date Complaint History Of Prese nt Illness Neck pain Neck/right shoulder blade pain Functional Status Date Functional Assessmen t No Information Instructions Date Instruction Additional Infor mation Take medication as directed. Rel ated to Radiculopathy, cervical region Take medication as directed. Rel ated to Cervical radiculopathy Discussed treatment options Rela mono to Cervical radiculopathy Discussed treatment options Rela mono to Pain in right shoulder Call for increase in pain Relate d to Pain in right shoulder Take medication as directed. Rel ated to Pain in right shoulder Assessments Type Assessment Date assessment Radiculopathy, cervical region N assessment Degeneration of cervical interve rtebral disc Patient Care Teams Name Effective Dates (start - stop) Status Members No Information
--- OUTSIDE RECORDS SUMMARY | 2024-11-22 13:02 | XMS_ITS | Clinical Summary ---
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
--- OUTSIDE RECORDS SUMMARY | 2024-11-22 13:02 | XMS_ITS | Patient Health Summary ---
Author Organization [facility] Address [address] [place] [address] Care Team Providers Care Orthopedic Shoe Maker Name Role Phone Unavailable Primary Care Provider Unavailabl e Note from [facility],non-owned Affiliates and Associated Physician Practices is amultiple site organization consisting of ambulatory clinics and hospital sitesin [place], [place], [place] and [place]. This disclosure is being madepursuant to the Care Everywhere program and may not contain all information available regarding this patient. Last updated 18.[facility] Allergies No known active allergies Medications * Be aware that medications may not be up to date on this document. Alwaysverify current medications with the patient. * rosuvastatin (Crestor) 40 MG tablet Take 1 (one) tablet by mouth once daily Reasons: High Amount of Fats in the Blood * levothyroxine (Synthroid) 100 MCG tablet Take 1 (one) tablet by mouth daily before breakfast Reasons: Underactive Thyroid * losartan (Cozaar) 100 MG tablet(Started 08/20/2023) Take 1 (one) tablet by mouth once daily 3 refills by 08/18/2024 * ezetimibe (Zetia) 10 MG tablet Take 1 (one) tablet by mouth once daily * estradiol (Estrace) 0.5 MG tablet Take 1 (one) tablet by mouth once daily * carvedilol (Coreg) 25 MG tablet Take 1 (one) tablet by mouth once daily * Ascorbic Acid (VITAMIN C PO) Take 1,000 mg by mouth once daily * B Complex-C (SUPER B COMPLEX PO) * vitamin E (Tocopheryl) 400 UNIT capsule Take 1 (one) capsule by mouth once daily * cyanocobalamin (Vitamin B-12) 1000 MCG tablet Take 5 (five) tablets by mouth once daily * vitamin D3 (Cholecalciferol) 25 MCG (1000 UNITS) tablet Take 5 (five) tablets by mouth once daily * Krill Oil 350 MG CAPS Active Problems Problem Noted Date Diagnosed Date Intracranial bleed 08/16/2023 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 2-4 times a month 08/16/2023 Q2: How many drinks containi ng alcohol do you have on a typical day when you are drinking? 1 or 2 08/16/2023 Q3: How often do you have si x or more drinks on one occasion? Less than monthly 08/16/2023 Overall Financial Resource Strain (CARDIA) Answe r Date Recorded How hard is it for you to pa y for the very basics like food, housing, medical care, and heating? Not hard at all 08/17/2023 PHQ-2 Answer Date Recorded Patient Health Questionnaire-2 Score 0 08/18/2023 [facility] - Occupational Stress Questionnaire Answer Date Recorded Do you feel stress - tense, restless, nervous, or anxious, or unable to sleep at night because your mind is troubled all the time - these days? Not at all 08/17/2023 Hunger Vital Sign Answer Date Recorded Within the past 12 months, y ou worried that your food would run out before you got the money to buy more. Never true 08/17/20 23 Within the past 12 months, t he food you bought just didn't last and you didn't have money to get more. Never true 08/17/2023 PRAPARE - Transportation Answer Date Re corded In the past 12 months, has l ack of transportation kept you from medical appointments or from getting medications? No 10/2022 In the past 12 months, has l ack of transportation kept you from meetings, work, or from getting things needed for daily living? No 08/17/2023 Housing Stability Vital Sign Answer Ori e Recorded In the last 12 months, was t here a time when you were not able to pay the mortgage or rent on time? No 08/17/2023 In the last 12 months, how many places have you lived? 1 08/17/2023 In the last 12 months, was t here a time when you did not have a steady place to sleep or slept in a long term (including now)? No 08/17/2023 Sex and Gender Information Value Date Recorded Sex Assigned at Not on file Gender Identity Not on file Sexual Orientation Not on file Last Filed Vital Signs Vital Sign Reading Time Taken Comments Blood Pressure 105/67 10/27/2023 11:59 AM PROCESS IMPROVEMENT MANAGER Pulse 65 10/27/2023 11:59 AM PROCESS IMPROVEMENT MANAGER Temperature 36.7 C (98.1 F) 09/16/2023 1:27 PM PROCESS IMPROVEMENT MANAGER Respiratory Rate 12 10/27/2023 11:59 AM PROCESS IMPROVEMENT MANAGER Oxygen Saturation 99% 09/16/2023 1:27 PM PROCESS IMPROVEMENT MANAGER Inhaled Oxygen Concentration - - Weight 81.2 kg (179 lb) 10/27/2023 11:59 AM PROCESS IMPROVEMENT MANAGER Height 177.8 cm (5' 10 ) 10/27/2023 11:59 AM PROCESS IMPROVEMENT MANAGER Body Mass Index 25.68 10/27/2023 11:59 AM PROCESS IMPROVEMENT MANAGER Procedures * MRI BRAIN WWO CONTRAST(Performed 12/01/2023) Performed for Intraparenchymal hemorrhage of brain (HCC) * MRI ANGIO BRAIN ARTERIAL WO CONT(Performed 12/01/2023) Performed for Intraparenchymal hemorrhage of brain (HCC) * CREATININE - POCT INTERFACED(Performed 12/01/2023) * CT HEAD WO CONTRAST(Performed 09/16/2023) Performed for Intraparenchymal hemorrhage of brain (HCC) * BASIC METABOLIC PANEL (CALCIUM TOTAL)(Performed 08/19/2023) * CBC W AUTO DIFFERENTIAL(Performed 08/19/2023) * MAGNESIUM BLOOD(Performed 08/19/2023) * PHOSPHORUS BLOOD(Performed 08/19/2023) * PT-INR SL[facility](Performed 08/18/2023) * MAGNESIUM BLOOD(Performed 08/18/2023) * POTASSIUM BLOOD(Performed 08/18/2023) * CBC W AUTO DIFFERENTIAL(Performed 08/17/2023) * BASIC METABOLIC PANEL (CALCIUM TOTAL)(Performed 08/17/2023) * MAGNESIUM BLOOD(Performed 08/17/2023) * PHOSPHORUS BLOOD(Performed 08/17/2023) * MRI BRAIN WWO CONTRAST(Performed 08/17/2023) Performed for Intraparenchymal hemorrhage of brain (HCC) * TEG 6 GLOBAL HEMOSTASIS W/ LYSIS(Performed 08/17/2023) * TEG 6S PLATELET MAPPING(Performed 08/17/2023) * CT HEAD WO CONTRAST(Performed 08/17/2023) Performed for Intraparenchymal hemorrhage of brain (HCC) * PT-INR SLH(Performed 08/17/2023) * CBC W AUTO DIFFERENTIAL(Performed 08/16/2023) * BASIC METABOLIC PANEL (CALCIUM TOTAL)(Performed 08/16/2023) * MAGNESIUM BLOOD(Performed 08/16/2023) * PHOSPHORUS BLOOD(Performed 08/16/2023) * HEMOGLOBIN A1C(Performed 08/16/2023) * BLOOD TYPE VERIFICATION(Performed 08/16/2023) * TROPONIN-I HIGH SENSITIVE REFLEX 1HOUR(Performed 08/16/2023) * CT ANGIO BRAIN AND NECK(Performed 08/16/2023) Performed for Intracranial bleed (HCC) * TROPONIN-I HIGH SENSITIVE BASELINE + 1HR(Performed 08/16/2023) * XR CHEST 1VW PORTABLE(Performed 08/16/2023) Performed for Intracranial bleed (HCC) * EKG 12-LEAD(Performed 08/16/2023) Performed for Intracranial bleed (HCC) * TYPE + SCREEN PANEL(Performed 08/16/2023) * PTT SL[facility](Performed 08/16/2023) * PT-INR [facility](Performed 08/16/2023) * MAGNESIUM BLOOD(Performed 08/16/2023) * CBC W AUTO DIFFERENTIAL(Performed 08/16/2023) * COMPREHENSIVE METABOLIC PANEL(Performed 08/16/2023) * DERMATOPATHOLOGY(Performed 10/05/2017) * DERMATOPATHOLOGY(Performed 03/24/2017) * DERMATOPATHOLOGY(Performed 09/01/2016) * DERMATOPATHOLOGY(Performed 03/30/2016) Results * MRI BRAIN WWO CONTRAST (12/01/2023 4:04 PM PROCESS IMPROVEMENT MANAGER) Only the most recent of2 resultswithin the time period is included. Anatomical Region Laterality Modality Head Magnetic Resonan ce 12/02/2023 6:50 PM PROCESS IMPROVEMENT MANAGER Impressions 12/02/2023 8:03 PM PROCESS IMPROVEMENT MANAGER IMPRESSION: Compared to the prior MRI of the brain from 08/17/2023: 1.Interval resolution of the previously seen bilateral cerebellar hemorrhages, with residual small volume susceptibility artifacts, compatible with hemosiderin deposition. 2.Interval resolution of the previously seen surrounding vasogenic edema and resolution of the local mass effect compared to the prior. Findings are compatible with expected interval evolution. 3.No new acute intracranial hemorrhage. 4.No underlying masslike enhancement to suggest underlying lesion. 5.Follow-up could be obtained if clinically warranted, per clinical protocol. 6.No large arterial occlusions or significant stenoses identified in the head. > Interpreting Provider: Radha Maxwell MD on 12/02/2023 8:03 PM Narrative 12/02/2023 8:03 PM PROCESS IMPROVEMENT MANAGER PROCEDURE: MRI BRAIN WWO CONTRAST, MRI ANGIO BRAIN ARTERIAL WO CONT, DATE/TIME OF EXAM: 12/01/2023 4:04 PM, LOCATION [facility] INDICATION: I61.9: Intraparenchymal hemorrhage of brain (CMS-HCC) ADDITIONAL CLINICAL INFORMATION: Ordering Provider Reason For Exam: None. Technologist Note: None. Additional: None. CONTRAST: GADOBUTROL 1 MMOL/ML IV [facility]SM SO:8 mL EXAMINATION: 1. Magnetic resonance imaging (MRI) of the brain without and with contrast 2. Magnetic resonance angiography (MRA) of the head without contrast TECHNIQUE: MRI of the brain was performed prior to and following the uneventful administration of 8 mL intravenous GADAVIST contrast according to standard protocol. MR arteriography of the head was performed without contrast utilizing time of flight technique. COMPARISON: MRI of the brain from 08/2023. CT of the head from 09/16/2023. FINDINGS: Brain: Redemonstration of evolving acute to hemorrhage in the bilateral cerebellar hemispheres, almost resolved compared to the prior with residual susceptibility artifacts, right more than left, decreased compared to prior, compatible with residual small volume pneumocephalus in the position. Interval resolution of the previously seen FLAIR hyperintensity, compatible with expected interval evolution. Interval resolution of the previously seen mild mass effect in the region with improved effacement of the adjacent sulci and resolution of the mass effect on the fourth ventricle. No evidence of acute cerebral infarction is seen. There is mild cerebral volume loss with associated ex vacuo ventricular dilatation. No supratentorial mass effect or midline shift is seen. Periventricular and subcortical white matter FLAIR hyperintensities likely represent sequelae of chronic small vessel ischemic disease. No enhancing lesions are identified. The corpus callosum and sella appear normal. The posterior fossa, brainstem, and craniocervical junction appear otherwise grossly unremarkable. Other than mild paranasal sinus disease, the visualized portions of the orbits, paranasal sinuses, and mastoids appear normal. Normal flow voids are demonstrated in the carotid arteries and basilar artery. The calvarium and visualized cervical spine appear normal. Angiographic findings: There is atherosclerotic disease involving the distal internal carotid arteries without significant focal stenosis. The anterior and middle cerebral arteries appear normal. There is atherosclerotic disease involving the distal vertebral arteries without significant focal stenosis. The basilar artery and posterior cerebral arteries appear normal. No aneurysms, vascular occlusions, or intracranial stenoses are identified. Procedure Note Radha Maxwell MD - 12/02/2023 PROCEDURE: MRI BRAIN WWO CONTRAST, MRI ANGIO BRAIN ARTERIAL WO CONT, DATE/TIME OF EXAM: 12/01/2023 4:04 PM, LOCATION [facility] INDICATION: I61.9: Intraparenchymal hemorrhage of brain ([facility]-HCC) ADDITIONAL CLINICAL INFORMATION: Ordering Provider Reason For Exam: None. Technologist Note: None. Additional: None. CONTRAST: GADOBUTROL 1 MMOL/ML IV [facility] SO:8 mL EXAMINATION: 1. Magnetic resonance imaging (MRI) of the brain without and withcontrast 2. Magnetic resonance angiography (MRA) of the head without contrast TECHNIQUE: MRI of the brain was performed prior to and following the uneventful administration of 8 mL intravenous GADAVIST contrastaccording to standard protocol. MR arteriography of the head was performed without contrast utilizing time of flight technique. COMPARISON: MRI of the brain from 08/2023. CT of the head from09/16/2023. FINDINGS: Brain: Redemonstration of evolving acute to hemorrhage in the bilateralcerebellar hemispheres, almost resolved compared to the prior with residual susceptibility artifacts, right more than left, decreased compared to prior, compatible with residual small volume pneumocephalus in the position. Interval resolution of the previously seen FLAIRhyperintensity, compatible with expected interval evolution. Interval resolution of the previously seen mild mass effect in the region with improved effacementof the adjacent sulci and resolution of the mass effect on the fourth ventricle. No evidence of acute cerebral infarction is seen. There is mild cerebral volume loss with associated ex vacuo ventricular dilatation. No supratentorial mass effect or midline shift is seen. Periventricular and subcortical white matter FLAIR hyperintensities likely representsequelae of chronic small vessel ischemic disease. No enhancing lesions are identified. The corpus callosum and sella appear normal. The posterior fossa, brainstem, and craniocervical junction appear otherwise grossly unremarkable. Other than mild paranasal sinus disease, the visualized portions of the orbits, paranasal sinuses, and mastoids appear normal. Normal flow voids are demonstrated in the carotid arteries and basilar artery. Thecalvarium and visualized cervical spine appear normal. Angiographic findings: There is atherosclerotic disease involving the distal internal carotid arteries without significant focal stenosis. The anterior and middle cerebral arteries appear normal. There is atherosclerotic diseaseinvolving the distal vertebral arteries without significant focal stenosis. The basilar artery and posterior cerebral arteries appear normal. Noaneurysms, vascular occlusions, or intracranial stenoses are identified. IMPRESSION: Compared to the prior MRI of the brain from 08/17/2023: 1.Interval resolution of the previously seen bilateral cerebellar hemorrhages, with residual small volume susceptibility artifacts, compatible with hemosiderin deposition. 2.Interval resolution of the previously seen surrounding vasogenic edema and resolution of the local mass effect compared to the prior. Findingsare compatible with expected interval evolution. 3.No new acute intracranial hemorrhage. 4.No underlying masslike enhancement to suggest underlying lesion. 5.Follow-up could be obtained if clinically warranted, per clinical protocol. 6.No large arterial occlusions or significant stenoses identified in the head. > Interpreting Provider: Radha Maxwell MD on 12/02/2023 8:03 PM Jonas Ibanez MD MR ORDERABLES * MRI ANGIO BRAIN ARTERIAL WO CONT (12/01/2023 3:52 PM PROCESS IMPROVEMENT MANAGER) Anatomical Region Laterality Modality Head Magnetic Resonan ce 12/02/2023 6:50 PM PROCESS IMPROVEMENT MANAGER Impressions 12/02/2023 8:03 PM PROCESS IMPROVEMENT MANAGER IMPRESSION: Compared to the prior MRI of the brain from 08/17/2023: 1.Interval resolution of the previously seen bilateral cerebellar hemorrhages, with residual small volume susceptibility artifacts, compatible with hemosiderin deposition. 2.Interval resolution of the previously seen surrounding vasogenic edema and resolution of the local mass effect compared to the prior. Findings are compatible with expected interval evolution. 3.No new acute intracranial hemorrhage. 4.No underlying masslike enhancement to suggest underlying lesion. 5.Follow-up could be obtained if clinically warranted, per clinical protocol. 6.No large arterial occlusions or significant stenoses identified in the head. > Interpreting Provider: Radha Maxwell MD on 12/02/2023 8:03 PM Narrative 12/02/2023 8:03 PM PROCESS IMPROVEMENT MANAGER PROCEDURE: MRI BRAIN WWO CONTRAST, MRI ANGIO BRAIN ARTERIAL WO CONT, DATE/TIME OF EXAM: 12/01/2023 4:04 PM, LOCATION [facility] INDICATION: I61.9: Intraparenchymal hemorrhage of brain (CMS-HCC) ADDITIONAL CLINICAL INFORMATION: Ordering Provider Reason For Exam: None. Technologist Note: None. Additional: None. CONTRAST: GADOBUTROL 1 MMOL/ML IV [facility] SO:8 mL EXAMINATION: 1. Magnetic resonance imaging (MRI) of the brain without and with contrast 2. Magnetic resonance angiography (MRA) of the head without contrast TECHNIQUE: MRI of the brain was performed prior to and following the uneventful administration of 8 mL intravenous GADAVIST contrast according to standard protocol. MR arteriography of the head was performed without contrast utilizing time of flight technique. COMPARISON: MRI of the brain from 08/2023. CT of the head from 09/16/2023. FINDINGS: Brain: Redemonstration of evolving acute to hemorrhage in the bilateral cerebellar hemispheres, almost resolved compared to the prior with residual susceptibility artifacts, right more than left, decreased compared to prior, compatible with residual small volume pneumocephalus in the position. Interval resolution of the previously seen FLAIR hyperintensity, compatible with expected interval evolution. Interval resolution of the previously seen mild mass effect in the region with improved effacement of the adjacent sulci and resolution of the mass effect on the fourth ventricle. No evidence of acute cerebral infarction is seen. There is mild cerebral volume loss with associated ex vacuo ventricular dilatation. No supratentorial mass effect or midline shift is seen. Periventricular and subcortical white matter FLAIR hyperintensities likely represent sequelae of chronic small vessel ischemic disease. No enhancing lesions are identified. The corpus callosum and sella appear normal. The posterior fossa, brainstem, and craniocervical junction appear otherwise grossly unremarkable. Other than mild paranasal sinus disease, the visualized portions of the orbits, paranasal sinuses, and mastoids appear normal. Normal flow voids are demonstrated in the carotid arteries and basilar artery. The calvarium and visualized cervical spine appear normal. Angiographic findings: There is atherosclerotic disease involving the distal internal carotid arteries without significant focal stenosis. The anterior and middle cerebral arteries appear normal. There is atherosclerotic disease involving the distal vertebral arteries without significant focal stenosis. The basilar artery and posterior cerebral arteries appear normal. No aneurysms, vascular occlusions, or intracranial stenoses are identified. Procedure Note Radha Maxwell MD - 12/02/2023 PROCEDURE: MRI BRAIN WWO CONTRAST, MRI ANGIO BRAIN ARTERIAL WO CONT, DATE/TIME OF EXAM: 12/01/2023 4:04 PM, LOCATION [facility] INDICATION: I61.9: Intraparenchymal hemorrhage of brain ([facility]-HCC) ADDITIONAL CLINICAL INFORMATION: Ordering Provider Reason For Exam: None. Technologist Note: None. Additional: None. CONTRAST: GADOBUTROL 1 MMOL/ML IV [facility] SO:8 mL EXAMINATION: 1. Magnetic resonance imaging (MRI) of the brain without and withcontrast 2. Magnetic resonance angiography (MRA) of the head without contrast TECHNIQUE: MRI of the brain was performed prior to and following the uneventful administration of 8 mL intravenous GADAVIST contrastaccording to standard protocol. MR arteriography of the head was performed without contrast utilizing time of flight technique. COMPARISON: MRI of the brain from 08/2023. CT of the head from09/16/2023. FINDINGS: Brain: Redemonstration of evolving acute to hemorrhage in the bilateralcerebellar hemispheres, almost resolved compared to the prior with residual susceptibility artifacts, right more than left, decreased compared to prior, compatible with residual small volume pneumocephalus in the position. Interval resolution of the previously seen FLAIRhyperintensity, compatible with expected interval evolution. Interval resolution of the previously seen mild mass effect in the region with improved effacementof the adjacent sulci and resolution of the mass effect on the fourth ventricle. No evidence of acute cerebral infarction is seen. There is mild cerebral volume loss with associated ex vacuo ventricular dilatation. No supratentorial mass effect or midline shift is seen. Periventricular and subcortical white matter FLAIR hyperintensities likely representsequelae of chronic small vessel ischemic disease. No enhancing lesions are identified. The corpus callosum and sella appear normal. The posterior fossa, brainstem, and craniocervical junction appear otherwise grossly unremarkable. Other than mild paranasal sinus disease, the visualized portions of the orbits, paranasal sinuses, and mastoids appear normal. Normal flow voids are demonstrated in the carotid arteries and basilar artery. Thecalvarium and visualized cervical spine appear normal. Angiographic findings: There is atherosclerotic disease involving the distal internal carotid arteries without significant focal stenosis. The anterior and middle cerebral arteries appear normal. There is atherosclerotic diseaseinvolving the distal vertebral arteries without significant focal stenosis. The basilar artery and posterior cerebral arteries appear normal. Noaneurysms, vascular occlusions, or intracranial stenoses are identified. IMPRESSION: Compared to the prior MRI of the brain from 08/17/2023: 1.Interval resolution of the previously seen bilateral cerebellar hemorrhages, with residual small volume susceptibility artifacts, compatible with hemosiderin deposition. 2.Interval resolution of the previously seen surrounding vasogenic edema and resolution of the local mass effect compared to the prior. Findingsare compatible with expected interval evolution. 3.No new acute intracranial hemorrhage. 4.No underlying masslike enhancement to suggest underlying lesion. 5.Follow-up could be obtained if clinically warranted, per clinical protocol. 6.No large arterial occlusions or significant stenoses identified in the head. > Interpreting Provider: Radha Maxwell MD on 12/02/2023 8:03 PM Jonas Ibanez MD MR ORDERABLES * CREATININE - POCT INTERFACED (12/01/2023 3:20 PM PROCESS IMPROVEMENT MANAGER) Creatinine POCT 0.60 0.30 - 1.30 mg/dL 12/01/2023 3:28 PM PROCESS IMPROVEMENT MANAGER [facility] Comment:Range ok for MRI eGFR >90 >90 mL/min/1.7 3 m2 12/01/2023 3:28 PM PROCESS IMPROVEMENT MANAGER [facility] Blood BLOOD SPECIMEN / Unknown 12/01/2023 3:20 PM PROCESS IMPROVEMENT MANAGER 12/01/2023 3:28 PM PROCESS IMPROVEMENT MANAGER Jonas Ibanez MD LAB - POINT OF CARE ORDERABLES [facility] [address] [place] [address], [facility] [phone] * CT HEAD WO CONTRAST (09/16/2023 1:06 PM PROCESS IMPROVEMENT MANAGER) Only the most recent of2 resultswithin the time period is included. Anatomical Region Laterality Modality Head Computed Tomogra phy 09/16/2023 1:18 PM PROCESS IMPROVEMENT MANAGER Impressions 09/16/2023 1:33 PM PROCESS IMPROVEMENT MANAGER IMPRESSION: 1. Near complete resolution of the cerebellar hemorrhage. No new hemorrhage. 2. Chronic small vessel ischemic disease of the brain with cerebral volume loss. > Interpreting Provider: Marsha Carr MD on 09/16/2023 1:33 PM Narrative 09/16/2023 1:33 PM PROCESS IMPROVEMENT MANAGER PROCEDURE: CT HEAD WO CONTRAST, DATE/TIME OF EXAM: 09/16/2023 1:07 PM, LOCATION [facility] INDICATION: I61.9: Intraparenchymal hemorrhage of brain (CMS/HCC) ADDITIONAL CLINICAL INFORMATION: Ordering Provider Reason For Exam: evaluate I[facility] Technologist Note: Additional: EXAMINATION: Computed tomography (CT) of the head without contrast TECHNIQUE: CT of the head was performed without contrast according to standard protocol. COMPARISON: 08/17/2023. FINDINGS: There has been near complete resolution of the cerebellar hemorrhage with an area of hypoattenuation in the right cerebellar hemisphere likely representing developing malacia. No new hemorrhage is identified. There is mild cerebral volume loss with associated ex vacuo ventricular dilatation. The basal cisterns are patent. No mass effect or midline shift is seen. The magallon-white matter differentiation is normal. Periventricular white matter hypoattenuation is a nonspecific finding that may be indicative of chronic small vessel ischemic disease. There is atherosclerotic calcification of the carotid siphons. Other than a small mucous retention cyst in the right maxillary sinus, the visualized portions of the orbits, paranasal sinuses, and mastoids appear normal. No acute calvarial fracture is identified. Procedure Note Marsha Carr MD - 09/16/2023 PROCEDURE: CT HEAD WO CONTRAST, DATE/TIME OF EXAM: 09/16/2023 1:07 PM, LOCATION [facility] INDICATION: I61.9: Intraparenchymal hemorrhage of brain (CMS/HCC) ADDITIONAL CLINICAL INFORMATION: Ordering Provider Reason For Exam: evaluate ICH Technologist Note: Additional: EXAMINATION: Computed tomography (CT) of the head without contrast TECHNIQUE: CT of the head was performed without contrast according to standard protocol. COMPARISON: 08/17/2023. FINDINGS: There has been near complete resolution of the cerebellar hemorrhagewith an area of hypoattenuation in the right cerebellar hemisphere likely representing developing malacia. No new hemorrhage is identified. Thereis mild cerebral volume loss with associated ex vacuo ventriculardilatation. The basal cisterns are patent. No mass effect or midline shift is seen.The magallon-white matter differentiation is normal. Periventricular whitematter hypoattenuation is a nonspecific finding that may be indicative ofchronic small vessel ischemic disease. There is atherosclerotic calcification of the carotid siphons. Other than a small mucous retention cyst in the right maxillary sinus,the visualized portions of the orbits, paranasal sinuses, and mastoidsappear normal. No acute calvarial fracture is identified. IMPRESSION: 1. Near complete resolution of the cerebellar hemorrhage. No new hemorrhage. 2. Chronic small vessel ischemic disease of the brain with cerebralvolume loss. > Interpreting Provider: Marsha Carr MD on 09/16/2023 1:33 PM Robyn French RESIDENTIAL AIDE-[facility] CT ORDERABLES * (ABNORMAL) CBC W AUTO DIFFERENTIAL (08/19/2023 2:37 AM CDT) Only the most recent of4 resultswithin the time period is included. WBC 6.3 3.5 - 10.5 10 3/uL 08/19/2023 3:29 AM CDT [facility] RBC 3.84 3.80 - 5.20 10 6/uL 08/19/2023 3:29 AM CDT [facility] Hemoglobin 12.6 12.0 - 15.6 g/dL 08/19/2023 3:29 AM CDT [facility] Hematocrit 37.7 35.0 - 45.0 % 08/19/2023 3:29 AM [facility] MCV 98.2 80.7 - 98.3 fL 08/19/2023 3:29 AM [facility] MCH 32.8 26.7 - 34.0 pg 08/19/2023 3:29 AM [facility] MCHC 33.4 30.8 - 35.9 g/dL 08/19/2023 3:29 AM [facility] RDW-SD 47.8 36.0 - 50.0 fL 08/19/2023 3:29 AM [facility] RDW-CV 13.2 11.2 - 14.8 % 08/19/2023 3:29 AM [facility] Platelet Count 321 150 - 400 10 3/uL 08/19/2023 3:29 AM [facility] MPV 9.3(L) 9.4 - 12.9 fL 08/19/2023 3:29 AM [facility] nRBC Absolute 0.00 0 10 3/uL 08/19/2023 3:29 AM [facility] nRBC Auto 0.0 0 /100 WBC 08/19/2023 3:29 AM [facility] Neutrophils % 65.5 35.0 - 70.0 % 08/19/2023 3:29 AM [facility] Lymphocytes % 20.3 20.0 - 43.0 % 08/19/2023 3:29 AM [facility] Monocytes % 12.5 5.0 - 13.0 % 08/19/2023 3:29 AM [facility] Eosinophils % 1.1 0.0 - 6.0 % 08/19/2023 3:29 AM [facility] Basophil % 0.3 0.0 - 2.0 % 08/19/2023 3:29 AM [facility] Neutrophils Absolute 4.12 1.60 - 7.00 10 3/uL 08/19/2023 3:29 AM [facility] Lymphocyte Absolute 1.28 1.10 - 3.90 10 3/uL 08/19/2023 3:29 AM [facility] Monocytes Absolute 0.79 0.26 - 1.07 10 3/uL 08/19/2023 3:29 AM [facility] Eosinophils Absolute 0.07 0.00 - 0.47 10 3/uL 08/19/2023 3:29 AM T [facility] Basophils Absolute 0.02 0.00 - 0.08 10 3/uL 08/19/2023 3:29 AM [facility] Immature Granulocytes % 0.3 0.0 - 1.0 % 08/19/2023 3:29 AM T [facility] Immature Granulocytes Absolute 0.02 08/19/2023 3:29 AM [facility] Blood BLOOD SPECIMEN / Unknown Lab Venipuncture / Unknown 08/19/2023 2:37 AM CDT 08/19/2023 3:25 AM CDT Jonas Ibanez MD LAB - HEMATOLOGY ORD ERABLES [address] [address], [facility] [phone] * (ABNORMAL) BASIC METABOLIC PANEL (CALCIUM TOTAL) (08/19/2023 2:37 AM CDT) Only the most recent of3 resultswithin the time period is included. BUN 11 7 - 26 mg/dL 08/19/2023 4:11 AM [facility] Creatinine 0.70 0.56 - 0.96 mg/dL 08/19/2023 4:11 AM [facility] Sodium 134(L) 136 - 145 mmol/L 08/19/2023 4:11 AM [facility] Potassium 3.4(L) 3.5 - 4.5 mmol/L 08/19/2023 4:11 AM [facility] Chloride 102 98 - 107 mmol/L 08/19/2023 4:11 AM [facility] CO2 21(L) 22 - 29 mmol/L 08/19/2023 4:11 AM [facility] Glucose 95 70 - 115 mg/dL 08/19/2023 4:11 AM [facility] Calcium 9.2 8.4 - 10.2 mg/dL 08/19/2023 4:11 AM CDT [facility] Anion Gap 11 6 - 16 08/19/2023 4:11 AM CDT [facility] BUN/Creatinine Ratio 16 7 - 23 08/19/2023 4:11 AM CDT [facility] Osmolality Calculated 277 275 - 295 mOsm/kg 08/19/2023 4:11 AM CDT [facility] eGFR by CKD-EPI >90 >=90 mL/min/1.7 3 m2 08/19/2023 4:11 AM CDT [facility] Blood BLOOD SPECIMEN / Unknown Lab Venipuncture / Unknown 08/19/2023 2:37 AM CDT 08/19/2023 3:40 AM CDT Jonas Ibanez MD LAB - CHEMISTRY JESSICA BRAUN [address] [address], [facility] [phone] * PHOSPHORUS BLOOD (08/19/2023 2:37 AM CDT) Only the most recent of3 resultswithin the time period is included. Phosphorus 2.9 2.9 - 5.1 mg/dL 08/19/2023 4:11 AM CDT [facility] Blood BLOOD SPECIMEN / Unknown Lab Venipuncture / Unknown 08/19/2023 2:37 AM CDT 08/19/2023 3:40 AM CDT Jonas Ibanez MD LAB - CHEMISTRY JESSICA BRAUN [address] [address], [place] [phone] * MAGNESIUM BLOOD (08/19/2023 2:37 AM CDT) Only the most recent of5 resultswithin the time period is included. Magnesium 2.1 1.6 - 2.6 mg/dL 08/19/2023 4:11 AM CDT [facility] Blood BLOOD SPECIMEN / Unknown Lab Venipuncture / Unknown 08/19/2023 2:37 AM CDT 08/19/2023 3:40 AM CDT Jonas Ibanez MD LAB - CHEMISTRY JESSICA BRAUN Performing Organization Address City/[facility]/ZIP Co de Phone Number [address] [address], [place] [phone] * PT-INR [facility] (08/18/2023 11:08 PM CDT) Only the most recent of3 resultswithin the time period is included. PT 13.0 12.1 - 14.8 Seconds 08/18/2023 11:40 PM CDT [facility] INR 1.0 See Comment 08/18/2023 11:40 PM CDT [facility] Comment:The suggested therap eutic range for standard coumadin (warfarin) therapy is an INR of 2.0-3.0. For high-risk patients (Mechanical Mitral Valve Prosthesis, etc.), the suggested prophylactic therapeutic range is an INR of 2.5-3.5. Blood BLOOD SPECIMEN / Unknown Lab Venipuncture / Unknown 08/18/2023 11:08 PM CDT 08/18/2023 11:20 PM CDT Jonas Ibanez MD LAB - COAGULATION OR DERABLES Performing Organization Address [facility] Co de Phone Number [address] [address], [place] [phone] * (ABNORMAL) POTASSIUM BLOOD (08/18/2023 6:53 AM CDT) Potassium 3.0(L) 3.5 - 4.5 mmol/L 08/18/2023 7:26 AM CDT [facility] Blood BLOOD SPECIMEN / Unknown Venipuncture / Unknown 08/18/2023 6:53 AM CDT 08/18/2023 6:57 AM CDT Jonas Ibanez MD LAB - CHEMISTRY JESSICA BRAUN [address] [place] [address], [facility] [phone] * (ABNORMAL) TEG 6 GLOBAL HEMOSTASIS W/ LYSIS (08/17/2023 10:03 AM CDT) [facility] Citrated Kaolin R (Reaction Time) 3.0(L) 4.6 - 9.1 min 08/17/2023 11:31 AM CDT [facility] Comment:CK R result below no rmal range. Consistent with hypercoagulable clotting factors. Citrated Kaolin LY30 (Lysis) 0.2 0.0 - 2.6 % 08/17/2023 11:31 AM CDT [facility] Citrated Functional Fibrinogen MA (Max Amplitude) 20.2 15.0 - 32.0 mm 08/17/2023 11:31 AM T [facility] Citrated RapidTEG MA (Max Amplitude) 63.8 52.0 - 70.0 mm 08/17/2023 11:31 AM T [facility] Blood BLOOD SPECIMEN / Unknown Venipuncture / Unknown 08/17/2023 10:03 AM CDT 08/17/2023 10:12 AM CDT Jonas Ibanez MD LAB - HEMATOLOGY ORD ERABLES [address] [address], [facility] [phone] * TEG 6S PLATELET MAPPING (08/17/2023 10:03 AM CDT) [facility] TEGPLM (Max Amplitude) Koalin 62.8 53.0 - 68.0 mm 08/17/2023 11:12 AM CDT [facility] TEGPLM (Max Amplitude) ACTF 12.2 2.0 - 19.0 mm 08/17/2023 11:12 AM CDT [facility] TEGPLM (Max Amplitude) ADP 62.6 45.0 - 69.0 mm 08/17/2023 11:12 AM CDT [facility] TEGPLM (Max Amplitude) AA 64.5 51.0 - 71.0 mm 08/17/2023 11:12 AM [facility] TEGPLM %Inhibition ADP 0.4 0.0 - 17.0 % 08/17/2023 11:12 AM [facility] TEGPLM %Inhibition AA 0.0 0.0 - 11.0 % 08/17/2023 11:12 AM [facility] TEGPLM %Aggregation ADP 99.6 83.0 - 100.0 % 08/17/2023 11:12 AM [facility] TEGPLM % Aggregation AA 100.0 89.0 - 100.0 % 08/17/2023 11:12 AM [facility] Blood BLOOD SPECIMEN / Unknown Venipuncture / Unknown 08/17/2023 10:03 AM CDT 08/17/2023 10:12 AM CDT Jonas Ibanez MD LAB - HEMATOLOGY ORD ERABLES [address] [address], [facility] [phone] * HEMOGLOBIN A1C (08/16/2023 10:10 PM CDT) Hemoglobin A1c 5.4 <=5.6 % 08/17/2023 11:19 AM [facility] Estimated Average Glucose 108 mg/dL 08/17/2023 11:19 AM [facility] Comment: HbA1c Interpretation: Normal : < 5.7% Pre-diabetes: 5.7-6.4% Diabetes: Equal to or greater than 6.5% Test results diagnostic of diabetes should be repeated for confirmation. Treatment target values recommended by ADA and other clinical organizations should be used to evaluate metabolic control in patients. Reference: [place] [employer], Standards of Care in Diabetes -2020 In patients 70 years and older consider HbA1c target range of 7.0-7.5% (Reference: Gus Howard et al. JAMDA. 2012) The Sebia assay for the measurement of HbA1c is a National Glycohemoglobin Standardization Program (NGSP) certified method. Blood BLOOD SPECIMEN / Unknown Venipuncture / Unknown 08/16/2023 10:10 PM CDT 08/16/2023 10:20 PM CDT Ilir Warren MD LAB - CHEMISTRY JESSICA BRAUN Performing Organization Address City/[facility]/ZIP Co de Phone Number [address] [address], [place] [phone] * TROPONIN-I HIGH SENSITIVE REFLEX 1HOUR (08/16/2023 8:01 PM CDT) Troponin I High Sensitive 9 <=14 ng/L 08/16/2023 8:45 PM CDT [facility] Delta Troponin I HS 08/16/2023 8:45 PM CDT [facility] Comment:Delta value intentio juan not calculated. Baseline to 1 hour specimen collection interval exceeded. Blood BLOOD SPECIMEN / Unknown Venipuncture / Unknown 08/16/2023 8:01 PM CDT 08/16/2023 8:06 PM CDT Ilir Warren MD LAB - CHEMISTRY JESSICA BRAUN Performing Organization Address [facility]/ZIP Co de Phone Number [address] [address], [facility] [phone] * BLOOD TYPE VERIFICATION (08/16/2023 8:01 PM CDT) Pathologist [facility] ABO Rh O POS 08/16/2023 8:5 2 PM CDT [facility] Blood Bank BLOOD SPECIMEN / Unknown Venipuncture / Unknown 08/16/2023 8:01 PM CDT 08/16/2023 8:07 PM CDT Ilir Warren MD LAB - BLOOD BANK СЕРГЕЙ PAULA Performing Organization Address City/[facility]/ZIP Co de Phone Number [facility] [address] [place] [address], [place] [phone] * CT ANGIO BRAIN AND NECK (08/16/2023 7:47 PM CDT) Anatomical Region Laterality Modality Head Computed Tomogra phy 08/16/2023 7:43 PM CDT Impressions 08/16/2023 8:33 PM CDT IMPRESSION: 1. Acute right cerebellar intraparenchymal hematoma measuring 1.1 x 3.5 x 1.7 cm. Mild mass effect on the fourth ventricle, with no evidence of obstructive hydrocephalus. 2. No aneurysms, spot sign, or signs of a high flow vascular malformation identified. No large arterial occlusions or significant stenoses identified in the head or neck. Viz.AI was used for large vessel occlusion detection. Report dictated by Jesus Alberto Elliott M.D. (vice president compliance) 08/16/2023 7:55 PM I, Rg Sheffield MD have personally reviewed and interpreted this examination/study. > Interpreting Provider: Rg Sheffield MD on 08/16/2023 8:33 PM Narrative 08/16/2023 8:33 PM CDT PROCEDURE: CT ANGIO BRAIN AND NECK, DATE/TIME OF EXAM: 08/16/2023 7:48 PM, LOCATION [facility] INDICATION: I62.9: Intracranial bleed (CMS/HCC) ADDITIONAL CLINICAL INFORMATION: Ordering Provider Reason For Exam: known IPH. Interval change? Technologist Note: EXAMINATION: 1. Computed tomographic (CT) angiography of the head without and with contrast 2. CT angiography of the neck with contrast CONTRAST: 75 mL Isovue-370 TECHNIQUE: CT of the head was performed without contrast according to standard protocol. Then CT angiography of the head and neck was obtained after the uneventful administration of mL Isovue-370 intravenous contrast. Three dimensional postprocessing was performed by the technologist and sent to the workstation for review. Stenosis measurements are based on NASCET criteria. CT dose reduction technique was used, including Automated Exposure Control. COMPARISON: None FINDINGS: Non-angiographic findings: There is an acute intraparenchymal hemorrhage centered within the right cerebellar hemisphere which measures up to 1.1 x 3.5 cm in transaxial dimensions (series 6, image 26), and up to 1.7 cm in craniocaudal length (series 8, image 46). There is resulting mild mass effect on the fourth ventricle. Sizes of the lateral and third ventricles are within normal limits. There is mild cerebral volume loss with associated ex vacuo ventricular dilatation. No evidence of midline shift. The magallon-white matter differentiation is normal. Periventricular white matter hypoattenuation is indicative of chronic small vessel ischemic disease. There is vascular calcification of the carotid siphons. The visualized portions of the orbits, paranasal sinuses, and mastoids appear normal. No acute fracture is identified. No soft tissue abnormalities are identified in the neck. There are multilevel degenerative changes throughout the cervical spine, including 2 mm of anterolisthesis at the C3-4 level, and trace retrolisthesis at the C5-6 level. Angiographic findings: There is mild atherosclerotic disease of the aortic arch. The configuration of the brachiocephalic vessels is typical. The innominate artery and both subclavian arteries appear normal. There is mild atherosclerotic disease of the right carotid bifurcation and origin of the right internal carotid artery with less than 50 percent focal stenosis by NASCET criteria. The right common and internal carotid arteries otherwise appear normal. There is mild atherosclerotic disease of the left carotid bifurcation and origin of the left internal carotid artery with less than 50 percent focal stenosis by NASCET criteria. The left common and internal carotid arteries otherwise appear normal. The cervical vertebral arteries appear normal. The left vertebral artery is dominant. The distal internal carotid arteries appear normal. The anterior and middle cerebral arteries appear normal. The distal vertebral arteries appear normal. The basilar artery and posterior cerebral arteries appear normal. No aneurysms, spot sign, or signs of a high flow vascular malformation are identified. Procedure Note Rg Sheffield MD - 08/16/2023 PROCEDURE: CT ANGIO BRAIN AND NECK, DATE/TIME OF EXAM: 08/16/2023 7:48 PM, LOCATION [facility] INDICATION: I62.9: Intracranial bleed (CMS/HCC) ADDITIONAL CLINICAL INFORMATION: Ordering Provider Reason For Exam: known IPH. Interval change? Technologist Note: EXAMINATION: 1. Computed tomographic (CT) angiography of the head without and with contrast 2. CT angiography of the neck with contrast CONTRAST: 75 mL Isovue-370 TECHNIQUE: CT of the head was performed without contrast according to standard protocol. Then CT angiography of the head and neck was obtained after the uneventful administration of mL Isovue-370 intravenouscontrast. Three dimensional postprocessing was performed by the technologist andsent to the workstation for review. Stenosis measurements are based on NASCET criteria. CT dose reduction technique was used, including Automated Exposure Control. COMPARISON: None FINDINGS: Non-angiographic findings: There is an acute intraparenchymal hemorrhage centered within the right cerebellar hemisphere which measures up to 1.1 x 3.5 cm in transaxial dimensions (series 6, image 26), and up to 1.7 cm in craniocaudal length (series 8, image 46). There is resulting mild mass effect on the fourth ventricle. Sizes of the lateral and third ventricles are within normal limits. There is mild cerebral volume loss with associated ex vacuo ventricular dilatation. No evidence of midline shift. The magallon-white matter differentiation is normal. Periventricular white matter hypoattenuationis indicative of chronic small vessel ischemic disease. There is vascular calcification of the carotid siphons. The visualized portions of the orbits, paranasal sinuses, and mastoids appear normal. No acute fractureis identified. No soft tissue abnormalities are identified in the neck. There are multilevel degenerative changes throughout the cervical spine, including2 mm of anterolisthesis at the C3-4 level, and trace retrolisthesis at the C5-6 level. Angiographic findings: There is mild atherosclerotic disease of the aortic arch. Theconfiguration of the brachiocephalic vessels is typical. The innominate artery andboth subclavian arteries appear normal. There is mild atherosclerotic diseaseof the right carotid bifurcation and origin of the right internal carotid artery with less than 50 percent focal stenosis by NASCET criteria. The right common and internal carotid arteries otherwise appear normal.There is mild atherosclerotic disease of the left carotid bifurcation andorigin of the left internal carotid artery with less than 50 percent focal stenosis by NASCET criteria. The left common and internal carotidarteries otherwise appear normal. The cervical vertebral arteries appear normal.The left vertebral artery is dominant. The distal internal carotid arteries appear normal. The anterior andmiddle cerebral arteries appear normal. The distal vertebral arteries appear normal. The basilar artery and posterior cerebral arteries appearnormal. No aneurysms, spot sign, or signs of a high flow vascular malformationare identified. IMPRESSION: 1. Acute right cerebellar intraparenchymal hematoma measuring 1.1 x 3.5x 1.7 cm. Mild mass effect on the fourth ventricle, with no evidence of obstructive hydrocephalus. 2. No aneurysms, spot sign, or signs of a high flow vascularmalformation identified. No large arterial occlusions or significant stenosesidentified in the head or neck. Viz.AI was used for large vessel occlusion detection. Report dictated by Jesus Alberto Elliott M.D. (vice president compliance) 08/16/2023 7:55 PM Rg Menchaca MD have personally reviewed and interpreted this examination/study. > Interpreting Provider: Rg Sheffield MD on 08/16/2023 8:33 PM Ilir Warren MD CT ORDERABLES * TROPONIN-I HIGH SENSITIVE BASELINE + 1HR (08/16/2023 7:12 PM CDT) Troponin I High Sensitive 11 <=14 ng/L 08/16/2023 7:56 PM CDT [facility] Blood BLOOD SPECIMEN / Unknown Venipuncture / Unknown 08/16/2023 7:12 PM CDT 08/16/2023 7:20 PM CDT Ilir Warren MD LAB - CHEMISTRY JESSICA BRAUN [facility] Organization Address City/State/ZIP Co de Phone Number [address] [address], [facility] [phone] * XR CHEST 1VW PORTABLE (08/16/2023 6:53 PM CDT) Anatomical Region Laterality Modality Chest Radiographic Margarita ging 08/16/2023 7:04 PM CDT Impressions 08/17/2023 4:21 PM CDT IMPRESSION: No acute pulmonary process. Report dictated by Jesus Alberto Elliott MD (vice president compliance). Estefania Menchaca MD have personally reviewed and interpreted this examination/study. > Interpreting Provider: Estefania Hernadez MD on 08/17/2023 4:21 PM Narrative 08/17/2023 4:21 PM CDT PROCEDURE: XR CHEST 1VW PORTABLE, DATE/TIME OF EXAM: 08/16/2023 6:53 PM, LOCATION [facility] INDICATION: I62.9: Intracranial bleed (CMS/HCC) ADDITIONAL CLINICAL INFORMATION: Ordering Provider Reason For Exam: pneumonia fracture COMPARISON: None. TECHNIQUE: Frontal radiograph of the chest. FINDINGS: There is no focal consolidation, pleural effusion, or pneumothorax. The cardiomediastinal silhouette is normal. The visible bony thorax is intact. Procedure Note Estefania Hernadez MD - 08/17/2023 PROCEDURE: XR CHEST 1VW PORTABLE, DATE/TIME OF EXAM: 08/16/2023 6:53PM, LOCATION [facility] INDICATION: I62.9: Intracranial bleed (CMS/HCC) ADDITIONAL CLINICAL INFORMATION: Ordering Provider Reason For Exam: pneumonia fracture COMPARISON: None. TECHNIQUE: Frontal radiograph of the chest. FINDINGS: There is no focal consolidation, pleural effusion, or pneumothorax. The cardiomediastinal silhouette is normal. The visible bony thorax is intact. IMPRESSION: No acute pulmonary process. Report dictated by Jesus Alberto Elliott MD (vice president compliance). IEstefania MD have personally reviewed and interpreted this examination/study. > Interpreting Provider: Estefania Hernadez MD on 08/17/2023 4:21 PM Ilir Warren MD DIAGNOSTIC IMAGING O RDERABLES * EKG 12-LEAD (08/16/2023 6:21 PM CDT) Ventricular Rate 75 BPM [facility] Atrial Rate 75 BPM [facility] P-R Interval 212 ms [facility] QRS Duration ms 88 ms [facility] Q-T Interval ms 430 ms [facility] QTC Calculation (Bezet) 480 ms [facility] Calculated P Moody 49 degrees SL MUSE Calculated R Moody -5 degrees SL MUSE Calculated T Moody 35 degrees H MUSE Interpretation EKG SINUS RHYTHM WITH 1ST DEGREE A-V BLOCK OTHERWISE NORMAL ECG Confirmed by ANGEL LATHAM, MARGARITA ([id number]) on 08/18/2023 6:29:16 PM [facility] 08/16/2023 6:21 PM CDT 08/18/2023 6:29 PM CDT Ilir Warren MD ECG ORDERABLES [facility] * PTT [facility] (08/16/2023 6:16 PM CDT) APTT 25.5 23.0 - 38.4 Seconds 08/16/2023 7:03 PM CDT [facility] Comment:Suggested therapeuti c range for full dose I.V. unfractionated heparin therapy for venous thromboembolism is 71 to 109 seconds. Blood BLOOD SPECIMEN / Unknown Venipuncture / Unknown 08/16/2023 6:16 PM CDT 08/16/2023 6:29 PM CDT Ilir Warren MD LAB - COAGULATION OR DERABLES [facility] [address] [place] [address], [place] [phone] * TYPE + SCREEN PANEL (08/16/2023 6:16 PM CDT) [facility] Antibody Screen NEG 7:12 PM CDT [facility] ABO Rh O POS 08/16/2023 7:12 PM CDT [facility] Blood Bank BLOOD SPECIMEN / Unknown Venipuncture / Unknown 08/16/2023 6:16 PM CDT 08/16/2023 6:32 PM CDT Ilir Warren MD LAB - BLOOD BANK ORD ERABLES Performing Organization Address City/[facility] [place] [facility]/ZIP Co de Phone Number [facility] [address] [place] [id number], [place] [phone] * (ABNORMAL) COMPREHENSIVE METABOLIC PANEL (08/16/2023 6:16 PM CDT) [facility] BUN 7 7 - 26 mg/dL 08/16/2023 6:56 PM CDT [facility] Creatinine 0.72 0.56 - 0.96 mg/dL 08/16/2023 6:56 PM CDT [facility] Sodium 140 136 - 145 mmol/L 08/16/2023 6:56 PM CDT [facility] Potassium 3.2(L) 3.5 - 4.5 mmol/L 08/16/2023 6:56 PM CDT [facility] Chloride 105 98 - 107 mmol/L 08/16/2023 6:56 PM CDT [facility] CO2 23 22 - 29 mmol/L 08/16/2023 6:56 PM CDT [facility] Glucose 99 70 - 115 mg/dL 08/16/2023 6:56 PM [facility] Calcium 9.5 8.4 - 10.2 mg/dL 08/16/2023 6:56 PM [facility] Protein Total 7.5 6.0 - 8.3 g/dL 08/16/2023 6:56 PM [facility] Albumin 4.1 3.4 - 5.0 g/dL 08/16/2023 6:56 PM [facility] Bilirubin Total 0.7 0.2 - 1.2 mg/dL 08/16/2023 6:56 PM [facility] Alkaline Phosphatase 53 40 - 150 U/L 08/16/2023 6:56 PM [facility] ALT 36 5 - 55 U/L 08/16/2023 6:56 PM [facility] AST 47(H) 5 - 34 U/L 08/16/2023 6:56 PM [facility] Anion Gap 12 6 - 16 08/16/2023 6:56 PM [facility] BUN/Creatinine Ratio 10 7 - 23 08/16/2023 6:56 PM [facility] Osmolality Calculated 288 275 - 295 mOsm/kg 08/16/2023 6:56 PM [facility] Albumin/Globulin Ratio 1.2 1.1 - 2.3 08/16/2023 6:56 PM [facility] eGFR by CKD-EPI >90 >=90 mL/min/1.7 3 m2 08/16/2023 6:56 PM [facility] Blood BLOOD SPECIMEN / Unknown Venipuncture / Unknown 08/16/2023 6:16 PM CDT 08/16/2023 6:29 PM [facility] Ilir Warren MD LAB - CHEMISTRY JESSICA BRAUN [facility] Organization Address City/State/ZIP Co de Phone Number [facility] [address] [place] [address], [facility] [phone] * PATHOLOGY TISSUE FOR DERMATOLOGY (10/05/2017 12:00 AM PROCESS IMPROVEMENT MANAGER) Only the most recent of4 resultswithin the time period is included. Result CASE: [id number] PATIENT: PERLITA LIZARRAGA PATHOLOGIC DIAGNOSIS: Above left brow: SEBORRHEIC KERATOSIS, MACULAR PRESENT AT MARGIN (see microscopic description) CLINICAL DATA: R/O BCC. Check margins. GROSS DESCRIPTION: Received is one formalin filled container labeled with the patients name and designated above left brow. The specimen consists of a shave biopsy measuring [id number]. The margin is inked green. Jar 0. MICROSCOPIC DESCRIPTION: Sections show a relatively broad, flat proliferation of small keratinocytes. The surface is gently papillated, and there is increased basilar pigmentation. There is minimal dermis present for evaluation. Additional deeper sections were obtained and reviewed. This lesion is present at the margin of the specimen. Electronically signed out by Melvina Gutierrez M.D., PhD. 10/07/2017 1:01:54PM [facility] Comment: Performed at: Dermatopathology Laboratory [facility] Department of Dermatology [address] [place] [address] [place] [address] Phone number: [phone] FAX: [phone] 10/05/2017 10/06/2017 Kenyon Rowan MD LAB - PATHOLOGY/CYTO LOGY ORDERABLES [facility] [address] [place] [address]. [facility] [place] [address], [facility] [phone] Care Teams Orthopedic Shoe Maker Relationship Specialty Start Date End Date Winter MSN, RESIDENTIAL AIDE, CAMPUS MONITOR-C, Lauren Primary Care Provider 08/31/23
--- OUTSIDE RECORDS SUMMARY | 2024-11-22 13:02 | XMS_ITS | Referral Summary ---
Author Organization [facility] Address [address] [place] [address] Care Team Providers Care City Designer Name Role Phone Unavailable Primary Care Provider Unavailabl e Source Comments [facility],non-owned Affiliates and Associated Physician Practices is amultiple site organization consisting of ambulatory clinics and hospital sitesin [place] and [place]. This disclosure is being madepursuant to the Care Everywhere program and may not contain all information available regarding this patient. Last updated 18.[facility] Allergies No known active allergies Medications * Be aware that medications may not be up to date on this document. Alwaysverify current medications with the patient. Medication Sig Dispensed Refills Start Date End Date Status rosuvastatin (Crestor) 40 MG tabletIndications:H yperlipidemia Take 1 (one) tablet by mouth once daily Reasons: High Amount of Fats in the Blood Active levothyroxine (Synthroid) 100 MCG tabletIndications:H ypothyroidism Take 1 (one) tablet by mouth daily before breakfast Reasons: Underactive Thyroid Active losartan (Cozaar) 100 MG tablet Take 1 (one) tablet by mouth once daily 90 tablet 3 08/20/2023 Active ezetimibe (Zetia) 10 MG tablet Take 1 (one) tablet by mouth once daily Active estradiol (Estrace) 0.5 MG tablet Take 1 (one) tablet by mouth once daily Active carvedilol (Coreg) 25 MG tablet Take 1 (one) tablet by mouth once daily Active Ascorbic Acid (VITAMIN C PO) Take 1,000 mg by mouth once daily Active B Complex-C (SUPER B COMPLEX PO) Active vitamin E (Tocopheryl) 400 UNIT capsule Take 1 (one) capsule by mouth once daily Active cyanocobalamin (Vitamin B-12) 1000 MCG tablet Take 5 (five) tablets by mouth once daily Active vitamin D3 (Cholecalciferol) 25 MCG (1000 UNITS) tablet Take 5 (five) tablets by mouth once daily Active Krill Oil 350 MG CAPS Active Active Problems Problem Noted Date Diagnosed Date [...] Recorded Patient Health Questionnaire-2 Score 0 08/18/2023 [facility] - Occupational Stress Questionnaire Answer Date Recorded [...] place to sleep or slept in a mcc (including now)? No 08/17/2023 Sex and Gender Information Value Date Recorded Sex Assigned at Not on file Gender Identity Not on file Sexual Orientation Not on file Last Filed Vital Signs Vital Sign Reading Time Taken Comments Blood Pressure 105/67 10/27/2023 11:59 AM MANAGER DIALYSIS Pulse 65 10/27/2023 11:59 AM MANAGER DIALYSIS Temperature 36.7 C (98.1 F) 09/16/2023 1:27 PM MANAGER DIALYSIS Respiratory Rate 12 10/27/2023 11:59 AM MANAGER DIALYSIS Oxygen Saturation 99% 09/16/2023 1:27 PM MANAGER DIALYSIS Inhaled Oxygen Concentration - - Weight 81.2 kg (179 lb) 10/27/2023 11:59 AM MANAGER DIALYSIS Height 177.8 cm (5' 10 ) 10/27/2023 11:59 AM MANAGER DIALYSIS Body Mass Index 25.68 10/27/2023 11:59 AM MANAGER DIALYSIS Functional Status Functional Status Response Date of Assess ment Is person deaf or have serious hearing difficult y? No 08/16/2023 Is person blind or have serious difficulty seein g? No 08/16/2023 Does person have serious dif ficulty walking/climbing stairs? Yes 08/16/2023 Does person have difficulty dressing/bathing? No 08/16/2023 Does person have difficulty doing errands alone? No 08/16/2023 Cognitive Status Response Date of Assessm ent Does person have difficulty concentrating/remembering/making decisions? No 08/16/2023 Plan of Treatment Not on file Procedures Procedure Name Priority Date/Time Associated Diagnosis Comments BASIC METABOLIC PANEL (CALCIUM TOTAL) Routine 08/19/2023 2:37 AM CDT from Last 3 Months or Most Recently Relevant to Health Maintenance Results * (ABNORMAL) BASIC METABOLIC PANEL (CALCIUM TOTAL) (08/19/2023 2:37 AM CDT) BUN 11 7 - 26 mg/dL 08/19/2023 4:11 AM [facility] Creatinine 0.70 0.56 - 0.96 mg/dL 08/19/2023 4:11 AM [facility] Sodium 134(L) 136 - 145 mmol/L 08/19/2023 4:11 AM [facility] Potassium 3.4(L) 3.5 - 4.5 mmol/L 08/19/2023 4:11 AM [facility] Chloride 102 98 - 107 mmol/L 08/19/2023 4:11 AM [facility] CO2 21(L) 22 - 29 mmol/L 08/19/2023 4:11 AM [facility] Glucose 95 70 - 115 mg/dL 08/19/2023 4:11 AM [facility] Calcium 9.2 8.4 - 10.2 mg/dL 08/19/2023 4:11 AM [facility] Anion Gap 11 6 - 16 08/19/2023 4:11 AM [facility] BUN/Creatinine Ratio 16 7 - 23 08/19/2023 4:11 AM [facility] Osmolality Calculated 277 275 - 295 mOsm/kg 08/19/2023 4:11 AM [facility] eGFR by CKD-EPI >90 >=90 mL/min/1.7 3 m2 08/19/2023 4:11 AM [facility] Blood BLOOD SPECIMEN / Unknown Lab Venipuncture / Unknown 08/19/2023 2:37 AM CDT 08/19/2023 3:40 AM T Jonas Ibanez MD LAB - CHEMISTRY JESSICA Miguel Organization Address City/State/ZIP Co de Phone Number [facility] [address] [place] [address], [facility] [phone] from Last 3 Months or Most Recently Relevant to Health Maintenance Advance Directives * Full Code (Latest Code Status on File) Date Activated Date Inactivated Comments 08/16/2023 6:54 PM 08/19/2023 4:19 PM Care Teams City Designer Relationship Specialty Start Date End Date Winter MSN, CONSOLE ASSEMBLER, FOX FARMER-C, Lauren Primary Care Provider 08/31/23
--- OUTSIDE RECORDS SUMMARY | 2024-11-22 13:02 | XMS_ITS | Clinical Summary ---
Author Organization [facility] Address [address] [facility] [place] [address] Care Team Providers Care Key Punch Operator Name Role Phone Unavailable Primary Care Provider Unavailabl e Source Comments [facility],non-owned Affiliates and Associated Physician Practices is amultiple site organization consisting of ambulatory clinics and hospital sitesin [place], [place], [place] and [place]. This disclosure is being madepursuant to the Care Everywhere program and may not contain all information available regarding this patient. Last updated 18.[facility] Allergies No known active allergies Medications * [...] Recorded Patient Health Questionnaire-2 Score 0 08/18/2023 [facility] - Occupational Stress [...] place to sleep or slept in a custodial (including now)? No 08/17/2023 Sex and Gender Information Value Date Recorded Sex Assigned at Not on file Gender Identity Not on file Sexual Orientation Not on file Last Filed Vital Signs Vital Sign Reading Time Taken Comments Blood Pressure 105/67 10/27/2023 11:59 AM AUTOMOBILE BODY REPAIRER HELPER Pulse 65 10/27/2023 11:59 AM AUTOMOBILE BODY REPAIRER HELPER Temperature 36.7 C (98.1 F) 09/16/2023 1:27 PM AUTOMOBILE BODY REPAIRER HELPER Respiratory Rate 12 10/27/2023 11:59 AM AUTOMOBILE BODY REPAIRER HELPER Oxygen Saturation 99% 09/16/2023 1:27 PM AUTOMOBILE BODY REPAIRER HELPER Inhaled Oxygen Concentration - - Weight 81.2 kg (179 lb) 10/27/2023 11:59 AM AUTOMOBILE BODY REPAIRER HELPER Height 177.8 cm (5' 10 ) 10/27/2023 11:59 AM AUTOMOBILE BODY REPAIRER HELPER Body Mass Index 25.68 10/27/2023 11:59 AM AUTOMOBILE BODY REPAIRER HELPER Plan of Treatment Health Maintenance Due Date Last Done Comments COLOGUARD (AGES 45-75) - COLON CA SCREENING 1961 COLON MONITORING 1961 COLONOSCOPY - COLON CA SCREENING 1961 CT COLONOGRAPHY - COLON CA SCREENING 1961 Colorectal Cancer Screening 1961 FIT - COLON CA SCREENING 1961 FLEX SIG - COLON CA SCREENING 1961 MAMMOGRAM 1961 PAP SMEAR 1961 HIV SCREENING 1976 HEPATITIS C SCREENING 08/20/1979 DTAP/TDAP/TD VACCINES (1 - Tdap) 1980 PNEUMOCOCCAL VACCINE 50+ (1 of 1 - PCV) 2011 ZOSTER VACCINE (1 of 2) 2011 COVID-19 VACCINE ( season) 2024 INFLUENZA VACCINE (#1) 2024 DEPRESSION SCREENING 10/17/2024 08/22/2023 SCREENING FOR DIABETES 08/19/2026 3, 08/17/2023, 08/16/2023, Additional history exists Respiratory Syncytial Virus (RSV) Vaccine Pt: or over 60 yrs (1 - 1-dose 75+ series) 2036 HEPATITIS B VACCINE Aged Out No longe r eligible based on patient's age to complete this topic HIB VACCINE Aged Out No longer eligi ble based on patient's age to complete this topic HPV VACCINE Aged Out No longer eligi ble based on patient's age to complete this topic MENINGOCOCCAL (Group B) VACCINE Aged Out No longer eligible based on patient's age to complete this topic MENINGOCOCCAL VACCINE Aged Out No zoe rey eligible based on patient's age to complete this topic Procedures Procedure Name Priority Date/Time Associated Diagnosis Comments BASIC METABOLIC PANEL (CALCIUM TOTAL) Routine 08/19/2023 2:37 AM CDT from Last 3 Months or Most Recently Relevant to Health Maintenance Results * (ABNORMAL) BASIC METABOLIC PANEL (CALCIUM TOTAL) (08/19/2023 2:37 AM CDT) BUN 11 7 - 26 mg/dL 08/19/2023 4:11 AM [facility] Creatinine 0.70 0.56 - 0.96 mg/dL 08/19/2023 4:11 AM [facility] Sodium 134(L) 136 - 145 mmol/L 08/19/2023 4:11 AM [facility] Potassium 3.4(L) 3.5 - 4.5 mmol/L 08/19/2023 4:11 AM [facility] Chloride 102 98 - 107 mmol/L 08/19/2023 4:11 AM [facility] CO2 21(L) 22 - 29 mmol/L 08/19/2023 4:11 AM [facility] Glucose 95 70 - 115 mg/dL 08/19/2023 4:11 AM [facility] Calcium 9.2 8.4 - 10.2 mg/dL 08/19/2023 4:11 AM CDT [facility] Anion Gap 11 6 - 16 08/19/2023 4:11 AM CDT [facility] BUN/Creatinine Ratio 16 7 - 23 08/19/2023 4:11 AM CDT [facility] Osmolality Calculated 277 275 - 295 mOsm/kg 08/19/2023 4:11 AM CDT [facility] eGFR by CKD-EPI >90 >=90 mL/min/1.7 3 m2 08/19/2023 4:11 AM CDT [facility] Blood BLOOD SPECIMEN / Unknown Lab Venipuncture / Unknown 08/19/2023 2:37 AM CDT 08/19/2023 3:40 AM CDT Jonas Ibanez MD LAB - CHEMISTRY JESSICA BRAUN [facility] Organization Address City/State/ZIP Co de Phone Number [facility] [address] [place] [address], [facility] [phone] from Last 3 Months or Most Recently Relevant to Health Maintenance Advance Directives * Full Code (Latest Code Status on File) Date Activated Date Inactivated Comments 08/16/2023 6:54 PM 08/19/2023 4:19 PM Care Teams Key Punch Operator Relationship Specialty Start Date End Date Winter MSN, CALCINER OPERATOR HELPER, PHLEBOTOMIST ASSOCIATE-C, Lauren Primary Care Provider 08/31/23
== END 2024-11-22 12:52 | disposition home or self-care (01) ==
PROVIDERS: PCP Nurse Practitioner Family; Visit Provider Nurse Practitioner Family
DX: R06.02 Shortness of breath (principal); R05.9 Cough, unspecified
CPT/HCPCS: 71046

== ENCOUNTER 2024-11-25 10:42 | Inpatient (IN) | payer OTHER, SELFPAY ==
[2024-11-25] VITALS (15 sets, daily range): BP systolic 130–178; BP diastolic 71–96; PULSE 82–107; RESP 16–22; TEMP 36.6–36.8; O2SAT 92–96; BMI 23.7
--- NOTE | ~2024-11-25 | CT_ITS ---
EXAMINATION: CTA chest PE protocol DATE: 11/25/2024 13:03 INDICATION: Shortness of breath TECHNIQUE: Computed tomography (CT) pulmonary angiogram of the chest was performed with 100 mL Omnipa que-350 intravenous contrast. Additional 3D reconstructions utilizing coronal maximum intensity proje ction (MIP) were performed. Automated exposure control and iterative reconstruction technique were em ployed. The dose-length product was 352.21 mGy-cm. COMPARISON: None FINDINGS: No pulmonary embolism. No pneumonia, pulmonary edema, pleural effusion or pneumothorax. Heart size is normal. No pericardial effusion. Thoracic aorta is normal in caliber with no dissection. No patholog ically enlarged thoracic lymphadenopathy. Visualized upper abdomen is unremarkable. Mild to moderate thoracic spondylosis. IMPRESSION: 1. No pulmonary embolism or other acute cardiopulmonary disease. Reviewed, dictated and finalized at location A. INE ENGINEER
--- NOTE | ~2024-11-25 | XR_ITS ---
EXAMINATION: XR chest 2V DATE: 11/25/2024 11:31 INDICATION: Shortness of breath TECHNIQUE: PA and lateral views of the chest were obtained. COMPARISON: Chest radiograph dated 11/22/2024 FINDINGS: The lungs remain clear with no focal airspace opacities, pulmonary edema, pleural effusion or pneumot horax. The cardiomediastinal silhouette is normal. Mild to moderate thoracic spondylosis. IMPRESSION: 1. No acute cardiopulmonary disease. Reviewed, dictated and finalized at location A. GRATED LOGISTICS SUPPORT MANAGER
--- OUTSIDE RECORDS SUMMARY | 2024-11-25 10:43 | XMS_ITS | Patient Health Summary ---
Author Organization [facility] [employer] Address [address] [place] [address] Care Team Providers Care Programming Coordinator Name Role Phone Unavailable Primary Care Provider Unavailabl e Note from [facility],non-owned Affiliates and Associated Physician Practices is amultiple site organization consisting of ambulatory clinics and hospital sitesin [place], [place], [place] and [place]. This disclosure is being madepursuant to the Care Everywhere program and may not contain all information available regarding this patient. Last updated 18.[facility] [employer] Allergies No known active allergies Medications * [...] Recorded Patient Health Questionnaire-2 Score 0 08/18/2023 [facility] - Occupational Stress Questionnaire Answer Date Recorded [...] place to sleep or slept in a prison (including now)? No 08/17/2023 Sex and Gender Information Value Date Recorded Sex Assigned at Not on file Gender Identity Not on file Sexual Orientation Not on file Last Filed Vital Signs Vital Sign Reading Time Taken Comments Blood Pressure 105/67 10/27/2023 11:59 AM [facility] Pulse 65 10/27/2023 11:59 AM [facility] Temperature 36.7 C (98.1 F) 09/16/2023 1:27 PM [facility] Respiratory Rate 12 10/27/2023 11:59 AM [facility] Oxygen Saturation 99% 09/16/2023 1:27 PM [facility] Inhaled Oxygen Concentration - - Weight 81.2 kg (179 lb) 10/27/2023 11:59 AM [facility] Height 177.8 cm (5' 10 ) 10/27/2023 11:59 AM [facility] Body Mass Index 25.68 10/27/2023 11:59 AM [facility] Procedures * MRI BRAIN WWO CONTRAST(Performed 12/01/2023) [...] MRI BRAIN WWO CONTRAST (12/01/2023 4:04 PM [facility]) Only the most recent of2 resultswithin the time period is included. Anatomical Region Laterality Modality Head Magnetic Resonan ce 12/02/2023 6:50 PM [facility] Impressions 12/02/2023 8:03 PM [facility] IMPRESSION: Compared to the prior MRI of [...] 12/02/2023 8:03 PM Narrative 12/02/2023 8:03 PM [facility] PROCEDURE: MRI BRAIN WWO CONTRAST, MRI ANGIO [...] Louis INDICATION: I61.9: Intraparenchymal hemorrhage of brain ([facility]) ADDITIONAL CLINICAL INFORMATION: Ordering Provider Reason For Exam: None. Technologist Note: None. Additional: None. CONTRAST: GADOBUTROL 1 MMOL/ML IV [facility] SO:8 mL EXAMINATION: 1. Magnetic resonance imaging [...] BRAIN ARTERIAL WO CONT (12/01/2023 3:52 PM [facility]) Anatomical Region Laterality Modality Head Magnetic Resonan ce 12/02/2023 6:50 PM [facility] Impressions 12/02/2023 8:03 PM [facility] IMPRESSION: Compared to the prior MRI of [...] 12/02/2023 8:03 PM Narrative 12/02/2023 8:03 PM [facility] PROCEDURE: MRI BRAIN WWO CONTRAST, MRI ANGIO [...] Louis INDICATION: I61.9: Intraparenchymal hemorrhage of brain ([facility]) ADDITIONAL CLINICAL INFORMATION: Ordering Provider Reason For [...] CREATININE - POCT INTERFACED (12/01/2023 3:20 PM [facility]) Creatinine POCT 0.60 0.30 - 1.30 mg/dL 12/01/2023 3:28 PM [facility] Comment:Range ok for MRI eGFR >90 >90 mL/min/1.7 3 m2 12/01/2023 3:28 PM [facility] Blood BLOOD SPECIMEN / Unknown 12/01/2023 3:20 PM [facility] 12/01/2023 3:28 PM [facility] Jonas Ibanez MD LAB - POINT OF CARE ORDERABLES [facility] [address] [place] [address], [facility] [phone] * CT HEAD WO CONTRAST (09/16/2023 1:06 PM [facility]) Only the most recent of2 resultswithin the time period is included. Anatomical Region Laterality Modality Head Computed Tomogra phy 09/16/2023 1:18 PM [facility] Impressions 09/16/2023 1:33 PM [facility] IMPRESSION: 1. Near complete resolution of the cerebellar hemorrhage. No new hemorrhage. 2. Chronic small vessel ischemic disease of the brain with cerebral volume loss. > Interpreting Provider: Marsha Carr MD on 09/16/2023 1:33 PM Narrative 09/16/2023 1:33 PM [facility] PROCEDURE: CT HEAD WO CONTRAST, DATE/TIME OF [...] MD on 09/16/2023 1:33 PM Robyn French [employer] ORDERABLES * (ABNORMAL) CBC W AUTO DIFFERENTIAL (08/19/2023 2:37 AM CDT) Only the most recent of4 resultswithin the time period is included. WBC 6.3 3.5 - 10.5 10 3/uL 08/19/2023 3:29 AM CDT [facility] RBC 3.84 3.80 - 5.20 10 6/uL 08/19/2023 3:29 AM CDT [facility] Hemoglobin 12.6 12.0 - 15.6 g/dL 08/19/2023 3:29 AM CDT [facility] Hematocrit 37.7 35.0 - 45.0 % 08/19/2023 3:29 AM [facility] MCV 98.2 80.7 - 98.3 fL 08/19/2023 3:29 AM [facility] MCH 32.8 26.7 - 34.0 pg 08/19/2023 3:29 AM [facility] MCHC 33.4 30.8 - 35.9 g/dL 08/19/2023 3:29 AM [facility] RDW-SD 47.8 36.0 - 50.0 fL 08/19/2023 3:29 AM [facility] RDW-CV 13.2 11.2 - 14.8 % 08/19/2023 3:29 AM [facility] Platelet Count 321 150 - 400 10 3/uL 08/19/2023 3:29 AM [facility] MPV 9.3(L) 9.4 - 12.9 fL 08/19/2023 3:29 AM [facility] nRBC Absolute 0.00 0 10 3/uL 08/19/2023 3:29 AM [facility] nRBC Auto 0.0 0 /100 WBC 08/19/2023 3:29 AM [facility] Neutrophils % 65.5 35.0 - 70.0 % 08/19/2023 3:29 AM [facility] Lymphocytes % 20.3 20.0 - 43.0 % 08/19/2023 3:29 AM [facility] Monocytes % 12.5 5.0 - 13.0 % 08/19/2023 3:29 AM [facility] Eosinophils % 1.1 0.0 - 6.0 % 08/19/2023 3:29 AM [facility] Basophil % 0.3 0.0 - 2.0 % 08/19/2023 3:29 AM [facility] Neutrophils Absolute 4.12 1.60 - 7.00 10 3/uL 08/19/2023 3:29 AM [facility] Lymphocyte Absolute 1.28 1.10 - 3.90 10 3/uL 08/19/2023 3:29 AM [facility] Monocytes Absolute 0.79 0.26 - 1.07 10 3/uL 08/19/2023 3:29 AM [facility] Eosinophils Absolute 0.07 0.00 - 0.47 10 3/uL 08/19/2023 3:29 AM T [facility] Basophils Absolute 0.02 0.00 - 0.08 10 3/uL 08/19/2023 3:29 AM [facility] Immature Granulocytes % 0.3 0.0 - 1.0 % 08/19/2023 3:29 AM T [facility] Immature Granulocytes Absolute 0.02 08/19/2023 3:29 AM [facility] Blood BLOOD SPECIMEN / Unknown Lab Venipuncture / Unknown 08/19/2023 2:37 AM CDT 08/19/2023 3:25 AM CDT Jonas Ibanez MD LAB - HEMATOLOGY ORD ERABLES [address] [address], [facility] [phone] * (ABNORMAL) BASIC METABOLIC PANEL (CALCIUM TOTAL) (08/19/2023 2:37 AM CDT) Only the most recent of3 resultswithin the time period is included. BUN 11 7 - 26 mg/dL 08/19/2023 4:11 AM [facility] Creatinine 0.70 0.56 - 0.96 mg/dL 08/19/2023 4:11 AM [facility] Sodium 134(L) 136 - 145 mmol/L 08/19/2023 4:11 AM [facility] Potassium 3.4(L) 3.5 - 4.5 mmol/L 08/19/2023 4:11 AM [facility] Chloride 102 98 - 107 mmol/L 08/19/2023 4:11 AM [facility] CO2 21(L) 22 - 29 mmol/L 08/19/2023 4:11 AM [facility] Glucose 95 70 - 115 mg/dL 08/19/2023 4:11 AM [facility] Calcium 9.2 8.4 - 10.2 mg/dL 08/19/2023 4:11 AM CDT [facility] Anion Gap 11 6 - 16 08/19/2023 4:11 AM CDT [facility] BUN/Creatinine Ratio 16 7 - 23 08/19/2023 4:11 AM CDT [facility] Osmolality Calculated 277 275 - 295 mOsm/kg 08/19/2023 4:11 AM CDT [facility] eGFR by CKD-EPI >90 >=90 mL/min/1.7 3 m2 08/19/2023 4:11 AM CDT [facility] Blood BLOOD SPECIMEN / Unknown Lab Venipuncture / Unknown 08/19/2023 2:37 AM CDT 08/19/2023 3:40 AM CDT Jonas Ibanez MD LAB - CHEMISTRY JESSICA BRAUN [address] [address], [facility] [phone] * PHOSPHORUS BLOOD (08/19/2023 2:37 AM CDT) Only the most recent of3 resultswithin the time period is included. Phosphorus 2.9 2.9 - 5.1 mg/dL 08/19/2023 4:11 AM CDT [facility] Blood BLOOD SPECIMEN / Unknown Lab Venipuncture / Unknown 08/19/2023 2:37 AM CDT 08/19/2023 3:40 AM CDT Jonas Ibanez MD LAB - CHEMISTRY JESSICA BRAUN [address] [address], [place] [phone] * MAGNESIUM BLOOD (08/19/2023 2:37 AM CDT) Only the most recent of5 resultswithin the time period is included. Magnesium 2.1 1.6 - 2.6 mg/dL 08/19/2023 4:11 AM CDT [facility] Blood BLOOD SPECIMEN / Unknown Lab Venipuncture / Unknown 08/19/2023 2:37 AM CDT 08/19/2023 3:40 AM CDT Jonas Ibanez MD LAB - CHEMISTRY JESSICA BRAUN Performing Organization Address City/[facility]/ZIP Co de Phone Number [address] [address], [place] [phone] * PT-INR [facility] (08/18/2023 11:08 PM CDT) Only the most recent of3 resultswithin the time period is included. PT 13.0 12.1 - 14.8 Seconds 08/18/2023 11:40 PM CDT [facility] INR 1.0 See Comment 08/18/2023 11:40 PM CDT [facility] Comment:The suggested therap eutic range for standard coumadin (warfarin) therapy is an INR of 2.0-3.0. For high-risk patients (Mechanical Mitral Valve Prosthesis, etc.), the suggested prophylactic therapeutic range is an INR of 2.5-3.5. Blood BLOOD SPECIMEN / Unknown Lab Venipuncture / Unknown 08/18/2023 11:08 PM CDT 08/18/2023 11:20 PM CDT Jonas Ibanez MD LAB - COAGULATION OR DERABLES Performing Organization Address [facility] Co de Phone Number [address] [address], [place] [phone] * (ABNORMAL) POTASSIUM BLOOD (08/18/2023 6:53 AM CDT) Potassium 3.0(L) 3.5 - 4.5 mmol/L 08/18/2023 7:26 AM CDT [facility] Blood BLOOD SPECIMEN / Unknown Venipuncture / Unknown 08/18/2023 6:53 AM CDT 08/18/2023 6:57 AM CDT Jonas Ibanez MD LAB - CHEMISTRY JESSICA BRAUN [address] [place] [address], [facility] [phone] * (ABNORMAL) TEG 6 GLOBAL HEMOSTASIS W/ LYSIS (08/17/2023 10:03 AM CDT) [facility] Citrated Kaolin R (Reaction Time) 3.0(L) 4.6 - 9.1 min 08/17/2023 11:31 AM CDT [facility] Comment:CK R result below no rmal range. Consistent with hypercoagulable clotting factors. Citrated Kaolin LY30 (Lysis) 0.2 0.0 - 2.6 % 08/17/2023 11:31 AM CDT [facility] Citrated Functional Fibrinogen MA (Max Amplitude) 20.2 15.0 - 32.0 mm 08/17/2023 11:31 AM T [facility] Citrated RapidTEG MA (Max Amplitude) 63.8 52.0 - 70.0 mm 08/17/2023 11:31 AM T [facility] Blood BLOOD SPECIMEN / Unknown Venipuncture / Unknown 08/17/2023 10:03 AM CDT 08/17/2023 10:12 AM CDT Jonas Ibanez MD LAB - HEMATOLOGY ORD ERABLES [address] [address], [facility] [phone] * TEG 6S PLATELET MAPPING (08/17/2023 10:03 AM CDT) [facility] TEGPLM (Max Amplitude) Koalin 62.8 53.0 - 68.0 mm 08/17/2023 11:12 AM CDT [facility] TEGPLM (Max Amplitude) ACTF 12.2 2.0 - 19.0 mm 08/17/2023 11:12 AM CDT [facility] TEGPLM (Max Amplitude) ADP 62.6 45.0 - 69.0 mm 08/17/2023 11:12 AM CDT [facility] TEGPLM (Max Amplitude) AA 64.5 51.0 - 71.0 mm 08/17/2023 11:12 AM [facility] TEGPLM %Inhibition ADP 0.4 0.0 - 17.0 % 08/17/2023 11:12 AM [facility] TEGPLM %Inhibition AA 0.0 0.0 - 11.0 % 08/17/2023 11:12 AM [facility] TEGPLM %Aggregation ADP 99.6 83.0 - 100.0 % 08/17/2023 11:12 AM [facility] TEGPLM % Aggregation AA 100.0 89.0 - 100.0 % 08/17/2023 11:12 AM [facility] Blood BLOOD SPECIMEN / Unknown Venipuncture / Unknown 08/17/2023 10:03 AM CDT 08/17/2023 10:12 AM CDT Jonas Ibanez MD LAB - HEMATOLOGY ORD ERABLES [address] [address], [facility] [phone] * HEMOGLOBIN A1C (08/16/2023 10:10 PM CDT) Hemoglobin A1c 5.4 <=5.6 % 08/17/2023 11:19 AM [facility] Estimated Average Glucose 108 mg/dL 08/17/2023 11:19 AM [facility] Comment: HbA1c Interpretation: Normal : < 5.7% Pre-diabetes: 5.7-6.4% Diabetes: Equal to or greater than 6.5% Test results diagnostic of diabetes should be repeated for confirmation. Treatment target values recommended by ADA and other clinical organizations should be used to evaluate metabolic control in patients. Reference: [place] [employer], Standards of Care in Diabetes [...] - CHEMISTRY JESSICA BRAUN Performing Organization Address City/[facility]/ZIP Co de Phone Number [address] [address], [place] [phone] * TROPONIN-I HIGH SENSITIVE REFLEX 1HOUR (08/16/2023 8:01 PM CDT) Troponin I High Sensitive 9 <=14 ng/L 08/16/2023 8:45 PM CDT [facility] Delta Troponin I HS 08/16/2023 8:45 PM CDT [facility] Comment:Delta value intentio juan not calculated. Baseline to 1 hour specimen collection interval exceeded. Blood BLOOD SPECIMEN / Unknown Venipuncture / Unknown 08/16/2023 8:01 PM CDT 08/16/2023 8:06 PM CDT Ilir Warren MD LAB - CHEMISTRY JESSICA BRAUN Performing Organization Address [facility]/ZIP Co de Phone Number [address] [address], [facility] [phone] * BLOOD TYPE VERIFICATION (08/16/2023 8:01 PM CDT) Pathologist [facility] ABO Rh O POS 08/16/2023 8:5 2 PM CDT [facility] Blood Bank BLOOD SPECIMEN / Unknown Venipuncture / Unknown 08/16/2023 8:01 PM CDT 08/16/2023 8:07 PM CDT Ilir Warren MD LAB - BLOOD BANK СЕРГЕЙ PAULA Performing Organization Address City/[facility]/ZIP Co de Phone Number [facility] [address] [place] [phone], [place] [phone] * CT ANGIO BRAIN AND NECK (08/16/2023 [...] Report dictated by Jesus Alberto Elliott M.D. (energy operations vice president) 08/16/2023 7:55 PM I, Rg Sheffield MD [...] Report dictated by Jesus Alberto Elliott M.D. (energy operations vice president) 08/16/2023 7:55 PM Rg Menchaca MD have personally reviewed and interpreted this examination/study. > Interpreting Provider: Rg Sheffield MD on 08/16/2023 8:33 PM Ilir Warren MD CT ORDERABLES * TROPONIN-I HIGH SENSITIVE BASELINE + 1HR (08/16/2023 7:12 PM CDT) Troponin I High Sensitive 11 <=14 ng/L 08/16/2023 7:56 PM CDT [facility] Blood BLOOD SPECIMEN / Unknown Venipuncture / Unknown 08/16/2023 7:12 PM CDT 08/16/2023 7:20 PM CDT Ilir Warren MD LAB - CHEMISTRY JESSICA BRAUN [facility] Organization Address City/State/ZIP Co de Phone Number [address] [address], [facility] [phone] * XR CHEST 1VW PORTABLE (08/16/2023 6:53 PM CDT) Anatomical Region Laterality Modality Chest Radiographic Margarita ging 08/16/2023 7:04 PM CDT Impressions 08/17/2023 4:21 PM CDT IMPRESSION: No acute pulmonary process. Report dictated by Jesus Alberto Elliott MD (energy operations vice president). Estefania Menchaca MD have personally reviewed and [...] Report dictated by Jesus Alberto Elliott MD (energy operations vice president). IEstefania MD have personally reviewed and interpreted this examination/study. > Interpreting Provider: Estefania Hernadez MD on 08/17/2023 4:21 PM Ilir Warren MD DIAGNOSTIC IMAGING O RDERABLES * EKG 12-LEAD (08/16/2023 6:21 PM CDT) Ventricular Rate 75 BPM [facility] MUSE Atrial Rate 75 BPM [facility] MUSE P-R Interval 212 ms [facility] MUSE QRS Duration ms 88 ms [facility] MUSE Q-T Interval ms 430 ms [facility] MUSE QTC Calculation (Bezet) 480 ms [facility] MUSE Calculated P [place] 49 degrees SL MUSE Calculated R [place] -5 degrees SL MUSE Calculated T [place] 35 degrees H MUSE Interpretation EKG SINUS RHYTHM WITH 1ST DEGREE A-V BLOCK OTHERWISE NORMAL ECG Confirmed by ANGEL LATHAM, MARGARITA ([id number]) on 08/18/2023 6:29:16 PM [facility] MUSE 08/16/2023 6:21 PM CDT 08/18/2023 6:29 PM CDT Ilir Warren MD ECG ORDERABLES [facility] M[facility] * PTT [facility] (08/16/2023 6:16 PM CDT) APTT 25.5 23.0 - 38.4 Seconds 08/16/2023 7:03 PM CDT [facility] Comment:Suggested therapeuti c range for full dose I.V. unfractionated heparin therapy for venous thromboembolism is 71 to 109 seconds. Blood BLOOD SPECIMEN / Unknown Venipuncture / Unknown 08/16/2023 6:16 PM CDT 08/16/2023 6:29 PM CDT Ilir Warren MD LAB - COAGULATION OR DERABLES [facility] [address] [place] [address], [place] [phone] * TYPE + SCREEN PANEL (08/16/2023 6:16 PM CDT) [facility] Antibody Screen NEG 7:12 PM CDT [facility] ABO Rh O POS 08/16/2023 7:12 PM CDT [facility] Blood Bank BLOOD SPECIMEN / Unknown Venipuncture / Unknown 08/16/2023 6:16 PM CDT 08/16/2023 6:32 PM CDT Ilir Warren MD LAB - BLOOD BANK ORD ERABLES Performing Organization Address City/[facility]/ZIP Co de Phone Number [facility] [address] [place] [address], [place] [phone] * (ABNORMAL) COMPREHENSIVE METABOLIC PANEL (08/16/2023 6:16 PM CDT) [facility] BUN 7 7 - 26 mg/dL 08/16/2023 6:56 PM CDT [facility] Creatinine 0.72 0.56 - 0.96 mg/dL 08/16/2023 6:56 PM CDT [facility] Sodium 140 136 - 145 mmol/L 08/16/2023 6:56 PM CDT [facility] Potassium 3.2(L) 3.5 - 4.5 mmol/L 08/16/2023 6:56 PM CDT [facility] Chloride 105 98 - 107 mmol/L 08/16/2023 6:56 PM CDT [facility] CO2 23 22 - 29 mmol/L 08/16/2023 6:56 PM CDT [facility] Glucose 99 70 - 115 mg/dL 08/16/2023 6:56 PM [facility] Calcium 9.5 8.4 - 10.2 mg/dL 08/16/2023 6:56 PM [facility] Protein Total 7.5 6.0 - 8.3 g/dL 08/16/2023 6:56 PM [facility] Albumin 4.1 3.4 - 5.0 g/dL 08/16/2023 6:56 PM [facility] Bilirubin Total 0.7 0.2 - 1.2 mg/dL 08/16/2023 6:56 PM [facility] Alkaline Phosphatase 53 40 - 150 U/L 08/16/2023 6:56 PM [facility] ALT 36 5 - 55 U/L 08/16/2023 6:56 PM [facility] AST 47(H) 5 - 34 U/L 08/16/2023 6:56 PM [facility] Anion Gap 12 6 - 16 08/16/2023 6:56 PM [facility] BUN/Creatinine Ratio 10 7 - 23 08/16/2023 6:56 PM [facility] Osmolality Calculated 288 275 - 295 mOsm/kg 08/16/2023 6:56 PM [facility] Albumin/Globulin Ratio 1.2 1.1 - 2.3 08/16/2023 6:56 PM [facility] eGFR by CKD-EPI >90 >=90 mL/min/1.7 3 m2 08/16/2023 6:56 PM [facility] Blood BLOOD SPECIMEN / Unknown Venipuncture / Unknown 08/16/2023 6:16 PM CDT 08/16/2023 6:29 PM [facility] Ilir Warren MD LAB - CHEMISTRY JESSICA BRAUN [facility] Organization Address City/State/ZIP Co de Phone Number [facility] [address] [place] [address], [facility] [phone] * PATHOLOGY TISSUE FOR DERMATOLOGY (10/05/2017 12:00 AM [facility]) Only the most recent of4 resultswithin the time period is included. Result CASE: [id number] PATIENT: PERLITA LIZARRAGA PATHOLOGIC DIAGNOSIS: Above left brow: SEBORRHEIC KERATOSIS, MACULAR PRESENT AT MARGIN (see microscopic description) CLINICAL DATA: R/O BCC. Check margins. GROSS DESCRIPTION: Received is one formalin filled container labeled with the patients name and designated above left brow. The specimen consists of a shave biopsy measuring [id number]. The margin is inked green. Jar 0. MICROSCOPIC DESCRIPTION: Sections show a relatively broad, flat proliferation of small keratinocytes. The surface is gently papillated, and there is increased basilar pigmentation. There is minimal dermis present for evaluation. Additional deeper sections were obtained and reviewed. This lesion is present at the margin of the specimen. Electronically signed out by Melvina Guiterrez M.D., PhD. 10/07/2017 1:01:54PM [facility] Comment: Performed at: Dermatopathology Laboratory [facility] Department of Dermatology [address] [place] [address] [place] [address] Phone number: [phone] FAX: [phone] 10/05/2017 10/06/2017 Kenyon Rowan MD LAB - PATHOLOGY/CYTO LOGY ORDERABLES [facility] [address] [place] [address]. [facility] [place] [address], [facility] [phone] Care Teams Programming Coordinator Relationship Specialty Start Date End Date Winter MSN, [employer], ELECTRONIC DEVELOPMENT TECHNICIAN-C, Lauren Primary Care Provider 08/31/23
--- OUTSIDE RECORDS SUMMARY | 2024-11-25 10:43 | XMS_ITS | Continuity of Care Document ---
Author Organization [facility] Address [address] [place] [address] Phone Care Team Providers Care Executive Administrative Asst Name Role Phone Tate Adams MD Unavailable [...] OFFICE/OUTPAT IENT VISIT EST [facility], [address], [place], [address], [place] tel:[phone] [facility] Neck pain (chief complaint) Radiculopathy , cervical regionDegener ation of cervical intervertebra l disc [address] Bryan [address]ra. [address] , [place], [place], [id number]. tel:[phone] [facility], [address] [facility] [address], [place], [address], [place] tel:[phone] [facility] Radiculopathy , cervical region 8 No Information Referring Provider: Tate Adams, [address], [place], [address] . tel:[phone] OFFICE CONSULTATION [facility], [address] [facility] [address] [facility] [address], [place], [address], [place] tel:[phone] [facility] Neck/right shoulder blade pain (chief complaint) Cervical radiculopathy Degeneration of cervical intervertebra l disc 8 Adams Tate. [address] , [place], [place], [id number]. tel:[phone] OFFICE CONSULTATION [facility], [address] [facility] [address], [place], [address], [place] tel:[phone] [facility] Pain in right shoulderCervi faye radiculopathy 8 Tc May. [address], [place], [place], [id number]. tel:[phone] Family History Family Member Type Diagnosis Age At Onset Sister Problem (finding) Diabetes mellitus Payers Payer name Insurance type Covered constitution party ID Authoriza tion(s) No Information Social [...]
--- OUTSIDE RECORDS SUMMARY | 2024-11-25 10:43 | XMS_ITS | Referral Summary ---
Author Organization [facility] Address [address] [place] [address] Care Team Providers Care Line Server Name Role Phone Unavailable Primary Care Provider Unavailabl e Source Comments [facility],non-owned Affiliates and Associated Physician Practices is amultiple site organization consisting of ambulatory clinics and hospital sitesin [place], [place], [place] and [place]. This disclosure is being madepursuant to the Care Everywhere program and may not contain all information available regarding this patient. Last updated 18.[facility] Allergies No known active allergies Medications * [...] Recorded Patient Health Questionnaire-2 Score 0 08/18/2023 [facility] of Occupat ional Health - Occupational Stress [...] place to sleep or slept in a alf (including now)? No 08/17/2023 Sex and Gender Information Value Date Recorded Sex Assigned at Not on file Gender Identity Not on file Sexual Orientation Not on file Last Filed Vital Signs Vital Sign Reading Time Taken Comments Blood Pressure 105/67 10/27/2023 11:59 AM CHILD HEALTH ASSOCIATE Pulse 65 10/27/2023 11:59 AM CHILD HEALTH ASSOCIATE Temperature 36.7 C (98.1 F) 09/16/2023 1:27 PM CHILD HEALTH ASSOCIATE Respiratory Rate 12 10/27/2023 11:59 AM CHILD HEALTH ASSOCIATE Oxygen Saturation 99% 09/16/2023 1:27 PM CHILD HEALTH ASSOCIATE Inhaled Oxygen Concentration - - Weight 81.2 kg (179 lb) 10/27/2023 11:59 AM CHILD HEALTH ASSOCIATE Height 177.8 cm (5' 10 ) 10/27/2023 11:59 AM CHILD HEALTH ASSOCIATE Body Mass Index 25.68 10/27/2023 11:59 AM CHILD HEALTH ASSOCIATE Functional Status Functional Status Response Date of [...] 7 - 26 mg/dL 08/19/2023 4:11 AM [facility] Creatinine 0.70 0.56 - 0.96 mg/dL 08/19/2023 4:11 AM [facility] Sodium 134(L) 136 - 145 mmol/L 08/19/2023 4:11 AM [facility] Potassium 3.4(L) 3.5 - 4.5 mmol/L 08/19/2023 4:11 AM [facility] Chloride 102 98 - 107 mmol/L 08/19/2023 4:11 AM [facility] CO2 21(L) 22 - 29 mmol/L 08/19/2023 4:11 AM [facility] Glucose 95 70 - 115 mg/dL 08/19/2023 4:11 AM [facility] Calcium 9.2 8.4 - 10.2 mg/dL 08/19/2023 4:11 AM [facility] Anion Gap 11 6 - 16 08/19/2023 4:11 AM [facility] BUN/Creatinine Ratio 16 7 - 23 08/19/2023 4:11 AM [facility] Osmolality Calculated 277 275 - 295 mOsm/kg 08/19/2023 4:11 AM [facility] eGFR by CKD-EPI >90 >=90 mL/min/1.7 3 m2 08/19/2023 4:11 AM [facility] Blood BLOOD SPECIMEN / Unknown Lab Venipuncture / Unknown 08/19/2023 2:37 AM CDT 08/19/2023 3:40 AM T Jonas Ibanez MD LAB - CHEMISTRY JESSICA Miguel Organization Address City/State/ZIP Co de Phone Number [facility] [address] [place] [address], [facility] [phone] from Last 3 Months or Most Recently Relevant to Health Maintenance Advance Directives * Full Code (Latest Code Status on File) Date Activated Date Inactivated Comments 08/16/2023 6:54 PM 08/19/2023 4:19 PM Care Teams Line Server Relationship Specialty Start Date End Date Winter MSN, TRANSITIONS RN CARE COORDINATOR, WAYS OPERATOR-C, Lauren Primary Care Provider 08/31/23
--- OUTSIDE RECORDS SUMMARY | 2024-11-25 10:43 | XMS_ITS | Clinical Summary ---
Author Organization [facility] [address] Address [address] [place] [address] Care Team Providers Care Business Development Assistant Name Role Phone Blaise Lucas MD Primary Care Provider [phone] Allergies No known active allergies Social History Tobacco Use Types Packs/Day Years Used Date Smoking Tobacco: Never Assessed Personal Safety Answer Date Recorded Getting School Help Needed Not on file 12/30 Comments Unknown Sex and Gender Information Value Date Recorded Sex Assigned at Not on file Legal Sex Female 8:56 PM GLOBAL SOURCING MANAGER Gender Identity Not on file Sexual Orientation [...] Plan of Treatment Not on file Insurance [facility] HMO/PPO Address: [address] [address] [place] [address] [facility] CHOICE PLUS [facility] HMO/PPO Address: [address] [address] [place] [address] Care Teams Business Development Assistant Relationship Specialty Start Date End Date Blaise Lucas MD [address] [phone] PCP - General Internal Medicine 11/21/19
--- OUTSIDE RECORDS SUMMARY | 2024-11-25 10:43 | XMS_ITS | Clinical Summary ---
Author Organization [facility] Address [address] [place] [address] Care Team Providers Care Karate Black Belt Name Role Phone Unavailable Primary Care Provider Unavailabl e Source Comments [facility],non-owned Affiliates and Associated Physician Practices is amultiple site organization consisting of ambulatory clinics and hospital sitesin [place], [place], [place] and [place]. This disclosure is being madepursuant to the Care Everywhere program and may not contain all information available regarding this patient. Last updated 18.[employer] [facility] Allergies No known active allergies Medications * [...] Recorded Patient Health Questionnaire-2 Score 0 08/18/2023 [facility] of Occupat ional Health - Occupational Stress [...] place to sleep or slept in a fdc (including now)? No 08/17/2023 Sex and Gender Information Value Date Recorded Sex Assigned at Not on file Gender Identity Not on file Sexual Orientation Not on file Last Filed Vital Signs Vital Sign Reading Time Taken Comments Blood Pressure 105/67 10/27/2023 11:59 AM FISHERIES ENFORCEMENT OFFICER Pulse 65 10/27/2023 11:59 AM FISHERIES ENFORCEMENT OFFICER Temperature 36.7 C (98.1 F) 09/16/2023 1:27 PM FISHERIES ENFORCEMENT OFFICER Respiratory Rate 12 10/27/2023 11:59 AM FISHERIES ENFORCEMENT OFFICER Oxygen Saturation 99% 09/16/2023 1:27 PM FISHERIES ENFORCEMENT OFFICER Inhaled Oxygen Concentration - - Weight 81.2 kg (179 lb) 10/27/2023 11:59 AM FISHERIES ENFORCEMENT OFFICER Height 177.8 cm (5' 10 ) 10/27/2023 11:59 AM FISHERIES ENFORCEMENT OFFICER Body Mass Index 25.68 10/27/2023 11:59 AM FISHERIES ENFORCEMENT OFFICER Plan of Treatment Health Maintenance Due Date [...] 7 - 26 mg/dL 08/19/2023 4:11 AM [facility] Creatinine 0.70 0.56 - 0.96 mg/dL 08/19/2023 4:11 AM [facility] Sodium 134(L) 136 - 145 mmol/L 08/19/2023 4:11 AM [facility] Potassium 3.4(L) 3.5 - 4.5 mmol/L 08/19/2023 4:11 AM [facility] Chloride 102 98 - 107 mmol/L 08/19/2023 4:11 AM [facility] CO2 21(L) 22 - 29 mmol/L 08/19/2023 4:11 AM [facility] Glucose 95 70 - 115 mg/dL 08/19/2023 4:11 AM [facility] Calcium 9.2 8.4 - 10.2 mg/dL 08/19/2023 4:11 AM CDT [facility] Anion Gap 11 6 - 16 08/19/2023 4:11 AM CDT [facility] BUN/Creatinine Ratio 16 7 - 23 08/19/2023 4:11 AM CDT [facility] Osmolality Calculated 277 275 - 295 mOsm/kg 08/19/2023 4:11 AM CDT [facility] eGFR by CKD-EPI >90 >=90 mL/min/1.7 3 m2 08/19/2023 4:11 AM CDT [facility] Blood BLOOD SPECIMEN / Unknown Lab Venipuncture / Unknown 08/19/2023 2:37 AM CDT 08/19/2023 3:40 AM CDT Jonas Ibanez MD LAB - CHEMISTRY JESSICA BRAUN [facility] Organization Address City/State/ZIP Co de Phone Number [facility] [address] [place] [address], [facility] [phone] from Last 3 Months or Most Recently Relevant to Health Maintenance Advance Directives * Full Code (Latest Code Status on File) Date Activated Date Inactivated Comments 08/16/2023 6:54 PM 08/19/2023 4:19 PM Care Teams Karate Black Belt Relationship Specialty Start Date End Date Winter MSN, BILLIARD TABLE ASSEMBLER, SPRAY RIG OPERATOR-C, Lauren Primary Care Provider 08/31/23
--- OUTSIDE RECORDS SUMMARY | 2024-11-25 10:43 | XMS_ITS | Referral Summary ---
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 HMO/PPO Address: [address] [address] [place] [address] [facility] CHOICE [facility] H[facility]/PPO Address: [address] [address] [place] [address] Care Teams Supply Chain Systems Manager Relationship Specialty Start Date End Date Blaise Lucas MD [address] [phone] PCP - General Internal Medicine 11/21/19
--- NOTE | 2024-11-25 10:46 | ECG_ITS ---
Test Date: 2024-11-25 10:49:58 Measurements Intervals [place] Rate: 98 P: 76 [place]: 196 QRS: 38 QRSD: 89 T: 57 QT: 337 QTc: 431 Interpretive Statements SINUS RHYTHM POSSIBLE LEFT ATRIAL ENLARGEMENT POSSIBLE RIGHT VENTRICULAR CONDUCTION DELAY NONSPECIFIC T-WAVE ABNORMALITY- INFERIOR LEADS BASELINE ARTIFACT- I, II, III, AVR, AVL, AVF BORDERLINE ECG No previous ECG available for comparison Electronically Signed On 11-25-2024 11:07:39 AUTO DAMAGE APPRAISER by Eder Cadena D.O.
--- OUTSIDE RECORDS SUMMARY | 2024-11-25 11:09 | XMS_ITS | Referral Summary ---
Author Organization [facility] Address [address] [place] [address] Care Team Providers Care Food Adviser Name Role Phone Unavailable Primary Care Provider Unavailabl e Source Comments [facility],non-owned Affiliates and Associated Physician Practices is amultiple site organization consisting of ambulatory clinics and hospital sitesin [place], [place], [place] and [place]. This disclosure is being madepursuant to the Care Everywhere program and may not contain all information available regarding this patient. Last updated 18.[facility] Allergies No known active allergies Medications * [...] Recorded Patient Health Questionnaire-2 Score 0 08/18/2023 [facility] of Occupat ional Health - Occupational [...] Comments Blood Pressure 105/67 10/27/2023 11:59 AM WOOD PROCESSING WORKER Pulse 65 10/27/2023 11:59 AM WOOD PROCESSING WORKER Temperature 36.7 C (98.1 F) 09/16/2023 1:27 PM WOOD PROCESSING WORKER Respiratory Rate 12 10/27/2023 11:59 AM WOOD PROCESSING WORKER Oxygen Saturation 99% 09/16/2023 1:27 PM WOOD PROCESSING WORKER Inhaled Oxygen Concentration - - Weight 81.2 kg (179 lb) 10/27/2023 11:59 AM WOOD PROCESSING WORKER Height 177.8 cm (5' 10 ) 10/27/2023 11:59 AM WOOD PROCESSING WORKER Body Mass Index 25.68 10/27/2023 11:59 AM WOOD PROCESSING WORKER Functional Status Functional Status Response Date of [...] 7 - 26 mg/dL 08/19/2023 4:11 AM [facility] Creatinine 0.70 0.56 - 0.96 mg/dL 08/19/2023 4:11 AM [facility] Sodium 134(L) 136 - 145 mmol/L 08/19/2023 4:11 AM [facility] Potassium 3.4(L) 3.5 - 4.5 mmol/L 08/19/2023 4:11 AM [facility] Chloride 102 98 - 107 mmol/L 08/19/2023 4:11 AM [facility] CO2 21(L) 22 - 29 mmol/L 08/19/2023 4:11 AM [facility] Glucose 95 70 - 115 mg/dL 08/19/2023 4:11 AM [facility] Calcium 9.2 8.4 - 10.2 mg/dL 08/19/2023 4:11 AM [facility] Anion Gap 11 6 - 16 08/19/2023 4:11 AM [facility] BUN/Creatinine Ratio 16 7 - 23 08/19/2023 4:11 AM [facility] Osmolality Calculated 277 275 - 295 mOsm/kg 08/19/2023 4:11 AM [facility] eGFR by CKD-EPI >90 >=90 mL/min/1.7 3 m2 08/19/2023 4:11 AM [facility] Blood BLOOD SPECIMEN / Unknown Lab Venipuncture / Unknown 08/19/2023 2:37 AM CDT 08/19/2023 3:40 AM T Jonas Ibanez MD LAB - CHEMISTRY JESSICA Miguel Organization Address City/State/ZIP Co de Phone Number [facility] [address] [place] [address], [facility] [phone] from Last 3 Months or Most Recently Relevant to Health Maintenance Advance Directives * Full Code (Latest Code Status on File) Date Activated Date Inactivated Comments 08/16/2023 6:54 PM 08/19/2023 4:19 PM Care Teams Food Adviser Relationship Specialty Start Date End Date Winter MSN, WATERWORKS OPERATOR, COLLET MAKER-C, Lauren Primary Care Provider 08/31/23
--- OUTSIDE RECORDS SUMMARY | 2024-11-25 11:09 | XMS_ITS | Clinical Summary ---
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
--- OUTSIDE RECORDS SUMMARY | 2024-11-25 11:09 | XMS_ITS | Continuity of Care Document ---
Author Organization [facility] Address [address] [place] [address] Phone Care Team Providers Care Seo Expert Name Role Phone Tate Adams MD Unavailable [...] OFFICE/OUTPAT IENT VISIT EST [facility], [address], [place], [address], [place] tel:[phone] [facility] Neck pain (chief complaint) Radiculopathy , cervical regionDegener ation of cervical intervertebra l disc 8 Bryan [address]. [address] , [place], [place], [id number]. tel:[phone] [facility], [address] [facility] [address], [place], [address], [place] tel:[phone] [facility] Radiculopathy , cervical region 8 No Information Referring Provider: Tate Adams, [address], [place], [address] . tel:[phone] OFFICE CONSULTATION [facility], [address] [facility] [address] [facility] [address], [place], [address], [place] tel:[phone] [facility] Neck/right shoulder blade pain (chief complaint) Cervical radiculopathy Degeneration of cervical intervertebra l disc 8 Adams Tate. [address] , [place], [place], [id number]. tel:[phone] OFFICE CONSULTATION [facility], [address] [facility] [address], [place], [address], [place] tel:[phone] [facility] Pain in right shoulderCervi faye radiculopathy [address] Tc May. [address], [place], [place], [id number]. tel:[phone] Family History Family Member Type Diagnosis Age At Onset Sister Problem (finding) Diabetes mellitus Payers Payer name Insurance type Covered republican ID Authoriza tion(s) No Information Social History [...]
--- OUTSIDE RECORDS SUMMARY | 2024-11-25 11:09 | XMS_ITS | Referral Summary ---
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 CHOICE PLUS Care Teams Siphon Operator Relationship Specialty Start Date End Date Blaise Lucas MD [address] [phone] PCP - General Internal Medicine 11/21/19
--- OUTSIDE RECORDS SUMMARY | 2024-11-25 11:09 | XMS_ITS | Patient Health Summary ---
Author Organization [facility] [employer] Address [address] [place] [address] Care Team Providers Care Administrative Office Manager Name Role Phone Unavailable Primary Care Provider Unavailabl e Note from [facility],non-owned Affiliates and Associated Physician Practices is amultiple site organization consisting of ambulatory clinics and hospital sitesin [place], [place], [place] and [place]. This disclosure is being madepursuant to the Care Everywhere program and may not contain all information available regarding this patient. Last updated 18.[facility] [employer] Allergies No known active allergies Medications * [...] Recorded Patient Health Questionnaire-2 Score 0 08/18/2023 [facility] - Occupational Stress Questionnaire Answer Date Recorded [...] place to sleep or slept in a residential (including now)? No 08/17/2023 Sex and Gender Information Value Date Recorded Sex Assigned at Not on file Gender Identity Not on file Sexual Orientation Not on file Last Filed Vital Signs Vital Sign Reading Time Taken Comments Blood Pressure 105/67 10/27/2023 11:59 AM [facility] [employer] Pulse 65 10/27/2023 11:59 AM [employer] [employer] Temperature 36.7 C (98.1 F) 09/16/2023 1:27 PM [employer] Respiratory Rate 12 10/27/2023 11:59 AM [employer] Oxygen Saturation 99% 09/16/2023 1:27 PM [employer] Inhaled Oxygen Concentration - - Weight 81.2 kg (179 lb) 10/27/2023 11:59 AM [employer] Height 177.8 cm (5' 10 ) 10/27/2023 11:59 AM [employer] Body Mass Index 25.68 10/27/2023 11:59 AM [facility] [employer] Procedures * MRI BRAIN WWO CONTRAST(Performed 12/01/2023) [...] MRI BRAIN WWO CONTRAST (12/01/2023 4:04 PM [employer]) Only the most recent of2 resultswithin the time period is included. Anatomical Region Laterality Modality Head Magnetic Resonan ce 12/02/2023 6:50 PM [employer] Impressions 12/02/2023 8:03 PM [employer] IMPRESSION: Compared to the prior MRI of [...] 12/02/2023 8:03 PM Narrative 12/02/2023 8:03 PM [employer] PROCEDURE: MRI BRAIN WWO CONTRAST, MRI ANGIO BRAIN ARTERIAL WO CONT, DATE/TIME OF EXAM: 12/01/2023 4:04 PM, LOCATION [facility] INDICATION: I61.9: Intraparenchymal hemorrhage of brain (CMS-HCC) [...] DATE/TIME OF EXAM: 12/01/2023 4:04 PM, LOCATION [facility] INDICATION: I61.9: Intraparenchymal hemorrhage of brain ([facility]-HCC) ADDITIONAL CLINICAL INFORMATION: Ordering Provider Reason For Exam: None. Technologist Note: None. Additional: None. CONTRAST: GADOBUTROL 1 MMOL/ML IV [facility] SO:8 mL EXAMINATION: 1. Magnetic [...] BRAIN ARTERIAL WO CONT (12/01/2023 3:52 PM [employer]) Anatomical Region Laterality Modality Head Magnetic Resonan ce 12/02/2023 6:50 PM [employer] Impressions 12/02/2023 8:03 PM [employer] IMPRESSION: Compared to the prior MRI of [...] 12/02/2023 8:03 PM Narrative 12/02/2023 8:03 PM [employer] PROCEDURE: MRI BRAIN WWO CONTRAST, MRI ANGIO BRAIN ARTERIAL WO CONT, DATE/TIME OF EXAM: 12/01/2023 4:04 PM, LOCATION [facility] INDICATION: I61.9: Intraparenchymal hemorrhage of brain (CMS-HCC) [...] DATE/TIME OF EXAM: 12/01/2023 4:04 PM, LOCATION [facility] INDICATION: I61.9: Intraparenchymal hemorrhage of brain ([facility]-HCC) ADDITIONAL CLINICAL INFORMATION: Ordering Provider Reason For [...] CREATININE - POCT INTERFACED (12/01/2023 3:20 PM [employer]) Creatinine POCT 0.60 0.30 - 1.30 mg/dL 12/01/2023 3:28 PM [facility] [employer] Comment:Range ok for MRI eGFR >90 >90 mL/min/1.7 3 m2 12/01/2023 3:28 PM [facility] Blood BLOOD SPECIMEN / Unknown 12/01/2023 3:20 PM [employer] 12/01/2023 3:28 PM [employer] Jonas Ibanez MD LAB - POINT OF CARE ORDERABLES [facility] [address] [place] [address], [facility] [phone] * CT HEAD WO CONTRAST (09/16/2023 1:06 PM [employer]) Only the most recent of2 resultswithin the time period is included. Anatomical Region Laterality Modality Head Computed Tomogra phy 09/16/2023 1:18 PM [employer] Impressions 09/16/2023 1:33 PM [employer] IMPRESSION: 1. Near complete resolution of the cerebellar hemorrhage. No new hemorrhage. 2. Chronic small vessel ischemic disease of the brain with cerebral volume loss. > Interpreting Provider: Marsha Carr MD on 09/16/2023 1:33 PM Narrative 09/16/2023 1:33 PM [facility] [employer] PROCEDURE: CT HEAD WO CONTRAST, DATE/TIME OF EXAM: 09/16/2023 1:07 PM, LOCATION [facility] INDICATION: I61.9: Intraparenchymal hemorrhage of brain (CMS/HCC) [...] DATE/TIME OF EXAM: 09/16/2023 1:07 PM, LOCATION [facility] INDICATION: I61.9: Intraparenchymal hemorrhage of brain (CMS/HCC) [...] MD on 09/16/2023 1:33 PM Robyn French [facility] ORDERABLES * (ABNORMAL) CBC W AUTO DIFFERENTIAL (08/19/2023 2:37 AM CDT) Only the most recent of4 resultswithin the time period is included. WBC 6.3 3.5 - 10.5 10 3/uL 08/19/2023 3:29 AM CDT [facility] RBC 3.84 3.80 - 5.20 10 6/uL 08/19/2023 3:29 AM CDT [facility] Hemoglobin 12.6 12.0 - 15.6 g/dL 08/19/2023 3:29 AM CDT [facility] Hematocrit 37.7 35.0 - 45.0 % 08/19/2023 3:29 AM [facility] MCV 98.2 80.7 - 98.3 fL 08/19/2023 3:29 AM [facility] MCH 32.8 26.7 - 34.0 pg 08/19/2023 3:29 AM [facility] MCHC 33.4 30.8 - 35.9 g/dL 08/19/2023 3:29 AM [facility] RDW-SD 47.8 36.0 - 50.0 fL 08/19/2023 3:29 AM [facility] RDW-CV 13.2 11.2 - 14.8 % 08/19/2023 3:29 AM [facility] Platelet Count 321 150 - 400 10 3/uL 08/19/2023 3:29 AM [facility] MPV 9.3(L) 9.4 - 12.9 fL 08/19/2023 3:29 AM [facility] nRBC Absolute 0.00 0 10 3/uL 08/19/2023 3:29 AM [facility] nRBC Auto 0.0 0 /100 WBC 08/19/2023 3:29 AM [facility] Neutrophils % 65.5 35.0 - 70.0 % 08/19/2023 3:29 AM [facility] Lymphocytes % 20.3 20.0 - 43.0 % 08/19/2023 3:29 AM [facility] Monocytes % 12.5 5.0 - 13.0 % 08/19/2023 3:29 AM [facility] Eosinophils % 1.1 0.0 - 6.0 % 08/19/2023 3:29 AM [facility] Basophil % 0.3 0.0 - 2.0 % 08/19/2023 3:29 AM [facility] Neutrophils Absolute 4.12 1.60 - 7.00 10 3/uL 08/19/2023 3:29 AM [facility] Lymphocyte Absolute 1.28 1.10 - 3.90 10 3/uL 08/19/2023 3:29 AM [facility] Monocytes Absolute 0.79 0.26 - 1.07 10 3/uL 08/19/2023 3:29 AM [facility] Eosinophils Absolute 0.07 0.00 - 0.47 10 3/uL 08/19/2023 3:29 AM T [facility] Basophils Absolute 0.02 0.00 - 0.08 10 3/uL 08/19/2023 3:29 AM [facility] Immature Granulocytes % 0.3 0.0 - 1.0 % 08/19/2023 3:29 AM T [facility] Immature Granulocytes Absolute 0.02 08/19/2023 3:29 AM [facility] Blood BLOOD SPECIMEN / Unknown Lab Venipuncture / Unknown 08/19/2023 2:37 AM CDT 08/19/2023 3:25 AM CDT Jonas Ibanez MD LAB - HEMATOLOGY ORD ERABLES [address] [address], [facility] [phone] * (ABNORMAL) BASIC METABOLIC PANEL (CALCIUM TOTAL) (08/19/2023 2:37 AM CDT) Only the most recent of3 resultswithin the time period is included. BUN 11 7 - 26 mg/dL 08/19/2023 4:11 AM [facility] Creatinine 0.70 0.56 - 0.96 mg/dL 08/19/2023 4:11 AM [facility] Sodium 134(L) 136 - 145 mmol/L 08/19/2023 4:11 AM [facility] Potassium 3.4(L) 3.5 - 4.5 mmol/L 08/19/2023 4:11 AM [facility] Chloride 102 98 - 107 mmol/L 08/19/2023 4:11 AM [facility] CO2 21(L) 22 - 29 mmol/L 08/19/2023 4:11 AM [facility] Glucose 95 70 - 115 mg/dL 08/19/2023 4:11 AM [facility] Calcium 9.2 8.4 - 10.2 mg/dL 08/19/2023 4:11 AM CDT [facility] Anion Gap 11 6 - 16 08/19/2023 4:11 AM CDT [facility] BUN/Creatinine Ratio 16 7 - 23 08/19/2023 4:11 AM CDT [facility] Osmolality Calculated 277 275 - 295 mOsm/kg 08/19/2023 4:11 AM CDT [facility] eGFR by CKD-EPI >90 >=90 mL/min/1.7 3 m2 08/19/2023 4:11 AM CDT [facility] Blood BLOOD SPECIMEN / Unknown Lab Venipuncture / Unknown 08/19/2023 2:37 AM CDT 08/19/2023 3:40 AM CDT Jonas Ibanez MD LAB - CHEMISTRY JESSICA BRAUN [address] [address], [facility] [phone] * PHOSPHORUS BLOOD (08/19/2023 2:37 AM CDT) Only the most recent of3 resultswithin the time period is included. Phosphorus 2.9 2.9 - 5.1 mg/dL 08/19/2023 4:11 AM CDT [facility] Blood BLOOD SPECIMEN / Unknown Lab Venipuncture / Unknown 08/19/2023 2:37 AM CDT 08/19/2023 3:40 AM CDT Jonas Ibanez MD LAB - CHEMISTRY JESSICA BRAUN [address] [address], [place] [phone] * MAGNESIUM BLOOD (08/19/2023 2:37 AM CDT) Only the most recent of5 resultswithin the time period is included. Magnesium 2.1 1.6 - 2.6 mg/dL 08/19/2023 4:11 AM CDT [facility] Blood BLOOD SPECIMEN / Unknown Lab Venipuncture / Unknown 08/19/2023 2:37 AM CDT 08/19/2023 3:40 AM CDT Jonas Ibanez MD LAB - CHEMISTRY JESSICA BRAUN Performing Organization Address City/[facility]/ZIP Co de Phone Number [address] [address], [place] [phone] * PT-INR [facility] (08/18/2023 11:08 PM CDT) Only the most recent of3 resultswithin the time period is included. PT 13.0 12.1 - 14.8 Seconds 08/18/2023 11:40 PM CDT [facility] INR 1.0 See Comment 08/18/2023 11:40 PM CDT [facility] Comment:The suggested therap eutic range for standard coumadin (warfarin) therapy is an INR of 2.0-3.0. For high-risk patients (Mechanical Mitral Valve Prosthesis, etc.), the suggested prophylactic therapeutic range is an INR of 2.5-3.5. Blood BLOOD SPECIMEN / Unknown Lab Venipuncture / Unknown 08/18/2023 11:08 PM CDT 08/18/2023 11:20 PM CDT Jonas Ibanez MD LAB - COAGULATION OR DERABLES Performing Organization Address [facility] Co de Phone Number [address] [address], [place] [phone] * (ABNORMAL) POTASSIUM BLOOD (08/18/2023 6:53 AM CDT) Potassium 3.0(L) 3.5 - 4.5 mmol/L 08/18/2023 7:26 AM CDT [facility] Blood BLOOD SPECIMEN / Unknown Venipuncture / Unknown 08/18/2023 6:53 AM CDT 08/18/2023 6:57 AM CDT Jonas Ibanez MD LAB - CHEMISTRY JESSICA BRAUN [address] [place] [address], [facility] [phone] * (ABNORMAL) TEG 6 GLOBAL HEMOSTASIS W/ LYSIS (08/17/2023 10:03 AM CDT) [facility] Citrated Kaolin R (Reaction Time) 3.0(L) 4.6 - 9.1 min 08/17/2023 11:31 AM CDT [facility] Comment:CK R result below no rmal range. Consistent with hypercoagulable clotting factors. Citrated Kaolin LY30 (Lysis) 0.2 0.0 - 2.6 % 08/17/2023 11:31 AM CDT [facility] Citrated Functional Fibrinogen MA (Max Amplitude) 20.2 15.0 - 32.0 mm 08/17/2023 11:31 AM T [facility] Citrated RapidTEG MA (Max Amplitude) 63.8 52.0 - 70.0 mm 08/17/2023 11:31 AM T [facility] Blood BLOOD SPECIMEN / Unknown Venipuncture / Unknown 08/17/2023 10:03 AM CDT 08/17/2023 10:12 AM CDT Jonas Ibanez MD LAB - HEMATOLOGY ORD ERABLES [address] [address], [facility] [phone] * TEG 6S PLATELET MAPPING (08/17/2023 10:03 AM CDT) [facility] TEGPLM (Max Amplitude) Koalin 62.8 53.0 - 68.0 mm 08/17/2023 11:12 AM CDT [facility] TEGPLM (Max Amplitude) ACTF 12.2 2.0 - 19.0 mm 08/17/2023 11:12 AM CDT [facility] TEGPLM (Max Amplitude) ADP 62.6 45.0 - 69.0 mm 08/17/2023 11:12 AM CDT [facility] TEGPLM (Max Amplitude) AA 64.5 51.0 - 71.0 mm 08/17/2023 11:12 AM [facility] TEGPLM %Inhibition ADP 0.4 0.0 - 17.0 % 08/17/2023 11:12 AM [facility] TEGPLM %Inhibition AA 0.0 0.0 - 11.0 % 08/17/2023 11:12 AM [facility] TEGPLM %Aggregation ADP 99.6 83.0 - 100.0 % 08/17/2023 11:12 AM [facility] TEGPLM % Aggregation AA 100.0 89.0 - 100.0 % 08/17/2023 11:12 AM [facility] Blood BLOOD SPECIMEN / Unknown Venipuncture / Unknown 08/17/2023 10:03 AM CDT 08/17/2023 10:12 AM CDT Jonas Ibanez MD LAB - HEMATOLOGY ORD ERABLES [address] [address], [facility] [phone] * HEMOGLOBIN A1C (08/16/2023 10:10 PM CDT) Hemoglobin A1c 5.4 <=5.6 % 08/17/2023 11:19 AM [facility] Estimated Average Glucose 108 mg/dL 08/17/2023 11:19 AM [facility] Comment: HbA1c Interpretation: Normal : < 5.7% Pre-diabetes: 5.7-6.4% Diabetes: Equal to or greater than 6.5% Test results diagnostic of diabetes should be repeated for confirmation. Treatment target values recommended by ADA and other clinical organizations should be used to evaluate metabolic control in patients. Reference: [place] [employer], Standards of Care in Diabetes [...] - CHEMISTRY JESSICA BRAUN Performing Organization Address City/[facility]/ZIP Co de Phone Number [address] [address], [place] [phone] * TROPONIN-I HIGH SENSITIVE REFLEX 1HOUR (08/16/2023 8:01 PM CDT) Troponin I High Sensitive 9 <=14 ng/L 08/16/2023 8:45 PM CDT [facility] Delta Troponin I HS 08/16/2023 8:45 PM CDT [facility] Comment:Delta value intentio juan not calculated. Baseline to 1 hour specimen collection interval exceeded. Blood BLOOD SPECIMEN / Unknown Venipuncture / Unknown 08/16/2023 8:01 PM CDT 08/16/2023 8:06 PM CDT Ilir Warren MD LAB - CHEMISTRY JESSICA BRAUN Performing Organization Address [facility]/ZIP Co de Phone Number [address] [address], [facility] [phone] * BLOOD TYPE VERIFICATION (08/16/2023 8:01 PM CDT) Pathologist [facility] ABO Rh O POS 08/16/2023 8:5 2 PM CDT [facility] Blood Bank BLOOD SPECIMEN / Unknown Venipuncture / Unknown 08/16/2023 8:01 PM CDT 08/16/2023 8:07 PM CDT Ilir Warren MD LAB - BLOOD BANK СЕРГЕЙ PAULA Performing Organization Address City/[facility]/ZIP Co de Phone Number [facility] [address] [place] [phone], [place] [phone] * CT ANGIO BRAIN AND NECK (08/16/2023 [...] by Jesus Alberto Elliott M.D. (vice president medical affairs) 08/16/2023 7:55 PM I, Rg Sheffield MD have personally reviewed and interpreted this examination/study. > Interpreting Provider: Rg Sheffield MD on 08/16/2023 8:33 PM Narrative 08/16/2023 8:33 PM CDT PROCEDURE: CT ANGIO BRAIN AND NECK, DATE/TIME OF EXAM: 08/16/2023 7:48 PM, LOCATION [facility] INDICATION: I62.9: Intracranial bleed (CMS/HCC) ADDITIONAL CLINICAL [...] DATE/TIME OF EXAM: 08/16/2023 7:48 PM, LOCATION [facility] INDICATION: I62.9: Intracranial bleed (CMS/HCC) ADDITIONAL CLINICAL [...] by Jesus Alberto Elliott M.D. (vice president medical affairs) 08/16/2023 7:55 PM Rg Menchaca MD have personally reviewed and interpreted this examination/study. > Interpreting Provider: Rg Sheffield MD on 08/16/2023 8:33 PM Ilir Warren MD CT ORDERABLES * TROPONIN-I HIGH SENSITIVE BASELINE + 1HR (08/16/2023 7:12 PM CDT) Troponin I High Sensitive 11 <=14 ng/L 08/16/2023 7:56 PM CDT [facility] Blood BLOOD SPECIMEN / Unknown Venipuncture / Unknown 08/16/2023 7:12 PM CDT 08/16/2023 7:20 PM CDT Ilir Warren MD LAB - CHEMISTRY JESSICA BRAUN [facility] Organization Address City/State/ZIP Co de Phone Number [address] [address], [facility] [phone] * XR CHEST 1VW PORTABLE (08/16/2023 6:53 PM CDT) Anatomical Region Laterality Modality Chest Radiographic Margarita ging 08/16/2023 7:04 PM CDT Impressions 08/17/2023 4:21 PM CDT IMPRESSION: No acute pulmonary process. Report dictated by Jesus Alberto Elliott MD (vice president medical affairs). Estefania Menchaca MD have personally reviewed and interpreted this examination/study. > Interpreting Provider: Estefania Hernadez MD on 08/17/2023 4:21 PM Narrative 08/17/2023 4:21 PM CDT PROCEDURE: XR CHEST 1VW PORTABLE, DATE/TIME OF EXAM: 08/16/2023 6:53 PM, LOCATION [facility] INDICATION: I62.9: Intracranial bleed (CMS/HCC) ADDITIONAL CLINICAL INFORMATION: Ordering Provider Reason For Exam: pneumonia fracture COMPARISON: None. TECHNIQUE: Frontal radiograph of the chest. FINDINGS: There is no focal consolidation, pleural effusion, or pneumothorax. The cardiomediastinal silhouette is normal. The visible bony thorax is intact. Procedure Note Estefania Hernadez MD - 08/17/2023 PROCEDURE: XR CHEST 1VW PORTABLE, DATE/TIME OF EXAM: 08/16/2023 6:53PM, LOCATION [facility] INDICATION: I62.9: Intracranial bleed (CMS/HCC) ADDITIONAL CLINICAL INFORMATION: Ordering Provider Reason For Exam: pneumonia fracture COMPARISON: None. TECHNIQUE: Frontal radiograph of the chest. FINDINGS: There is no focal consolidation, pleural effusion, or pneumothorax. The cardiomediastinal silhouette is normal. The visible bony thorax is intact. IMPRESSION: No acute pulmonary process. Report dictated by Jesus Alberto Elliott MD (vice president medical affairs). IEstefania MD have personally reviewed and interpreted this examination/study. > Interpreting Provider: Estefania Hernadez MD on 08/17/2023 4:21 PM Ilir Warren MD DIAGNOSTIC IMAGING O RDERABLES * EKG 12-LEAD (08/16/2023 6:21 PM CDT) Ventricular Rate 75 BPM [facility] MUSE Atrial Rate 75 BPM [facility] MUSE P-R Interval 212 ms [facility] MUSE QRS Duration ms 88 ms [facility] MUSE Q-T Interval ms 430 ms [facility] MUSE QTC Calculation (Bezet) 480 ms [facility] MUSE Calculated P [place] 49 degrees SL MUSE Calculated R [place] -5 degrees SL MUSE Calculated T [place] 35 degrees H MUSE Interpretation EKG SINUS RHYTHM WITH 1ST DEGREE A-V BLOCK OTHERWISE NORMAL ECG Confirmed by ANGEL LATHAM, MARGARITA ([id number]) on 08/18/2023 6:29:16 PM [facility] MUSE 08/16/2023 6:21 PM CDT 08/18/2023 6:29 PM CDT Ilir Warren MD ECG ORDERABLES [facility] MUSE * PTT [facility] (08/16/2023 6:16 PM CDT) APTT 25.5 23.0 - 38.4 Seconds 08/16/2023 7:03 PM CDT [facility] Comment:Suggested therapeuti c range for full dose I.V. unfractionated heparin therapy for venous thromboembolism is 71 to 109 seconds. Blood BLOOD SPECIMEN / Unknown Venipuncture / Unknown 08/16/2023 6:16 PM CDT 08/16/2023 6:29 PM CDT Ilir Warren MD LAB - COAGULATION OR DERABLES [facility] [address] [place] [address], [place] [phone] * TYPE + SCREEN PANEL (08/16/2023 6:16 PM CDT) [facility] Antibody Screen NEG 7:12 PM CDT [facility] ABO Rh O POS 08/16/2023 7:12 PM CDT [facility] Blood Bank BLOOD SPECIMEN / Unknown Venipuncture / Unknown 08/16/2023 6:16 PM CDT 08/16/2023 6:32 PM CDT Ilir Warren MD LAB - BLOOD BANK ORD ERABLES Performing Organization Address City/[facility]/ZIP Co de Phone Number [facility] [address] [place] [phone], [place] [phone] * (ABNORMAL) COMPREHENSIVE METABOLIC PANEL (08/16/2023 6:16 PM CDT) [facility] BUN 7 7 - 26 mg/dL 08/16/2023 6:56 PM CDT [facility] Creatinine 0.72 0.56 - 0.96 mg/dL 08/16/2023 6:56 PM CDT [facility] Sodium 140 136 - 145 mmol/L 08/16/2023 6:56 PM CDT [facility] Potassium 3.2(L) 3.5 - 4.5 mmol/L 08/16/2023 6:56 PM CDT [facility] Chloride 105 98 - 107 mmol/L 08/16/2023 6:56 PM CDT [facility] CO2 23 22 - 29 mmol/L 08/16/2023 6:56 PM CDT [facility] Glucose 99 70 - 115 mg/dL 08/16/2023 6:56 PM [facility] Calcium 9.5 8.4 - 10.2 mg/dL 08/16/2023 6:56 PM [facility] Protein Total 7.5 6.0 - 8.3 g/dL 08/16/2023 6:56 PM [facility] Albumin 4.1 3.4 - 5.0 g/dL 08/16/2023 6:56 PM [facility] Bilirubin Total 0.7 0.2 - 1.2 mg/dL 08/16/2023 6:56 PM [facility] Alkaline Phosphatase 53 40 - 150 U/L 08/16/2023 6:56 PM [facility] ALT 36 5 - 55 U/L 08/16/2023 6:56 PM [facility] AST 47(H) 5 - 34 U/L 08/16/2023 6:56 PM [facility] Anion Gap 12 6 - 16 08/16/2023 6:56 PM [facility] BUN/Creatinine Ratio 10 7 - 23 08/16/2023 6:56 PM [facility] Osmolality Calculated 288 275 - 295 mOsm/kg 08/16/2023 6:56 PM [facility] Albumin/Globulin Ratio 1.2 1.1 - 2.3 08/16/2023 6:56 PM [facility] eGFR by CKD-EPI >90 >=90 mL/min/1.7 3 m2 08/16/2023 6:56 PM [facility] Blood BLOOD SPECIMEN / Unknown Venipuncture / Unknown 08/16/2023 6:16 PM CDT 08/16/2023 6:29 PM [facility] Ilir Warren MD LAB - CHEMISTRY JESSICA BRAUN [facility] Organization Address City/State/ZIP Co de Phone Number [facility] [address] [place] [address], [facility] [phone] * PATHOLOGY TISSUE FOR DERMATOLOGY (10/05/2017 12:00 AM [employer]) Only the most recent of4 resultswithin the time period is included. Result CASE: [id number] PATIENT: PERLITA LIZARRAGA PATHOLOGIC DIAGNOSIS: Above left brow: SEBORRHEIC KERATOSIS, MACULAR PRESENT AT MARGIN (see microscopic description) CLINICAL DATA: R/O BCC. Check margins. GROSS DESCRIPTION: Received is one formalin filled container labeled with the patients name and designated above left brow. The specimen consists of a shave biopsy measuring 3c7v6pt. The margin is inked green. Jar 0. [...] by Melvina Gutierrez M.D., PhD. 10/07/2017 1:01:54PM [facility] Comment: Performed at: Dermatopathology Laboratory [facility] Department of Dermatology [address] [place] [address] [place] [address] Phone number: [phone] FAX: [phone] 10/05/2017 10/06/2017 Kenyon Rowan MD LAB - PATHOLOGY/CYTO LOGY ORDERABLES [facility] [address] [place] [address]. [facility] [place] [address], [facility] [phone] Care Teams Administrative Office Manager Relationship Specialty Start Date End Date Winter MSN, PATROL MAN, TEA TASTER-C, Lauren Primary Care Provider 08/31/23
--- OUTSIDE RECORDS SUMMARY | 2024-11-25 11:09 | XMS_ITS | Clinical Summary ---
Author Organization [facility] Address [address] [place] [address] Care Team Providers Care Veterinary Manager Name Role Phone Unavailable Primary Care Provider Unavailabl e Source Comments [facility],non-owned Affiliates and Associated Physician Practices is amultiple site organization consisting of ambulatory clinics and hospital sitesin [place], [place], [place] and [place]. This disclosure is being madepursuant to the Care Everywhere program and may not contain all information available regarding this patient. Last updated 18.[employer] [facility] Allergies No known active allergies Medications * [...] Recorded Patient Health Questionnaire-2 Score 0 08/18/2023 [facility] - Occupational [...] place to sleep or slept in a group home (including now)? No 08/17/2023 Sex and Gender Information Value Date Recorded Sex Assigned at Not on file Gender Identity Not on file Sexual Orientation Not on file Last Filed Vital Signs Vital Sign Reading Time Taken Comments Blood Pressure 105/67 10/27/2023 11:59 AM [employer] Pulse 65 10/27/2023 11:59 AM [employer] Temperature 36.7 C (98.1 F) 09/16/2023 1:27 PM [employer] Respiratory Rate 12 10/27/2023 11:59 AM [employer] Oxygen Saturation 99% 09/16/2023 1:27 PM [employer] Inhaled Oxygen Concentration - - Weight 81.2 kg (179 lb) 10/27/2023 11:59 AM [employer] Height 177.8 cm (5' 10 ) 10/27/2023 11:59 AM [employer] Body Mass Index 25.68 10/27/2023 11:59 AM [employer] Plan of Treatment Health Maintenance Due Date [...] 7 - 26 mg/dL 08/19/2023 4:11 AM [facility] Creatinine 0.70 0.56 - 0.96 mg/dL 08/19/2023 4:11 AM [facility] Sodium 134(L) 136 - 145 mmol/L 08/19/2023 4:11 AM [facility] Potassium 3.4(L) 3.5 - 4.5 mmol/L 08/19/2023 4:11 AM [facility] Chloride 102 98 - 107 mmol/L 08/19/2023 4:11 AM [facility] CO2 21(L) 22 - 29 mmol/L 08/19/2023 4:11 AM [facility] Glucose 95 70 - 115 mg/dL 08/19/2023 4:11 AM [facility] Calcium 9.2 8.4 - 10.2 mg/dL 08/19/2023 4:11 AM [facility] Anion Gap 11 6 - 16 08/19/2023 4:11 AM CDT [facility] BUN/Creatinine Ratio 16 7 - 23 [...] Ibanez MD LAB - CHEMISTRY JESSICA BRAUN [facility] Organization Address City/State/ZIP Co de Phone Number [facility] [address] [place] [address], [facility] [phone] from Last 3 Months or Most Recently Relevant to Health Maintenance Advance Directives * Full Code (Latest Code Status on File) Date Activated Date Inactivated Comments 08/16/2023 6:54 PM 08/19/2023 4:19 PM Care Teams Veterinary Manager Relationship Specialty Start Date End Date Winter MSN, [employer], PLANT SPECIALIST-C, [place] Primary Care Provider 08/31/23
--- NOTE | 2024-11-25 11:42 | ED_ITS ---
HPI - General Adult General Chief complaint: Shortness of Breath/Dyspnea Stated complaint: sob Time Seen by Provider: 11/25/24 10:58 History of Present Illness HPI narrative: 64-year-old female present to the emergency department for evaluation for worsening shortness of breath. Patient was initially diagnosed with upper respiratory infection September and was started on antibiotics and prednisone. Patient states she then began to improve but then had worsening symptoms over the last few days. Upon arrival emergency department patient is tachycardic and does appear to have increased work of breathing. Patient was satting 92% on room air at rest. Patient does have an extensive smoking history but did quit smoking approximately 7 years ago. Patient has had follow-up with pulmonology. Related Data Home Medications ?Medication ?Instructions ?Recorded ?Confirmed ?Last Taken ?Type vitamin E (dl, acetate) 180 mg 400 unit PO DAILY 10/16/19 11/25/24 11/25/24 History (400 unit) capsule B-complex with vitamin C (Super B 1 tablet PO DAILY 04/22/20 11/25/24 11/25/24 History Complex-Vitamin C tablet) levothyroxine 100 mcg tablet 100 mcg PO DAILY 12/24/20 11/25/24 11/25/24 History cholecalciferol (vitamin D3) 125 125 mcg PO DAILY 02/15/22 11/25/24 11/25/24 History mcg (5,000 unit) capsule ascorbate calcium (vitamin C) 500 1 g PO DAILY 03/03/23 11/25/24 11/25/24 History mg tablet cyanocobalamin (vitamin B-12) 5,000 mcg PO DAILY 03/03/23 11/25/24 11/25/24 History 2,500 mcg tablet Allergies Allergy/AdvReac Type Severity Reaction Status Date / Time No Known Allergies Allergy Verified 11/25/24 10:42 Review of Systems 2 Review of Systems: All systems reviewed & are unremarkable except as noted in HPI and below PMFSH Past Medical History Medical History (Updated 11/25/24 @ 15:23 by Nayeli Pichardo PA-C) 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 Hypertension Vitamin D deficiency Megaloblastic anemia Chronic pain of left knee Dyslipidemia Hypothyroidism Surgical History Surgical History (Updated 11/25/24 @ 15:21 by Nayeli Pichardo PA-C) History of total hysterectomy History of appendectomy Family History Family History Grandparent Malignant neoplasm of prostate Family history of malignant neoplasm of breast Family history of congestive heart failure Sibling Diabetes mellitus Social History Social History (Updated 11/25/24 @ 15:20 by Nayeli Pichardo PA-C) Social History: Surrogate medical decision maker: Dusty De Luna, spouse ([phone]). Code status: Full code. Smoking packs per day: 0.5 Smoking cigarettes per day: 10.0 Years smoked: 25 Smoking pack-years: 12.50 Smoking status: Never smoker Tobacco type: cigarettes Second hand tobacco smoke exposure: No Smoking end date: 10/17/05 Alcohol intake: never Alcohol use details: social alcohol use in moderation Substance use: never Substance use type: does not use Do You Feel Safe in your Home?: Yes Lack of Transportation: No Lack of Food: Never True Current Housing: I Have Housing Concerned About Future Housing: No Difficulty Paying Gas/Electric Bills: No Difficulty Paying for Meds: No Currently Unemployed: No Education: Bachelor's Degree Difficulty w/ Childcare or Family Care: No Spiritual care concerns: No Agree to blood products: Yes Exam 2 Narrative: APPEARANCE: Ill-appearing HEAD: normocephalic, atraumatic. EYES: PERRLA/EOMI, conjunctivae clear. NOSE: Normal no drainage EARS:TMS clear with good light reflex. THROAT: Pharynx clear, no exudate. NECK: Supple. No adenopathy, no masses. RESPIRATORY: Increased work of breathing, diminished lung sounds, after breathing treatment patient improved to wheezing lung sounds in all lung beal CARDIOVASCULAR: Regular rate and rhythm without murmurs rubs or gallops. ABDOMINAL: Soft, nontender, nondistended, normal bowel sounds MUSCULOSKELETAL: Moves all extremities. Strength/ROM intact, No edema, No calf tenderness. NEURO: Alert. Cranial nerves II through XII intact. Grossly intact SKIN: Warm, dry. Normal Color Course Vital Signs Vital signs: Vital Signs Temperature 98.1 F 11/25/24 10:43 Pulse Rate 102 H 11/25/24 10:43 Respiratory Rate 20 11/25/24 10:43 Blood Pressure 178/96 H 11/25/24 10:43 Pulse Oximetry 92 11/25/24 10:43 Oxygen Delivery Room Air 11/25/24 10:43 Temperature 98.2 F 11/25/24 16:34 Pulse Rate 100 11/25/24 16:34 Respiratory Rate 20 11/25/24 16:34 Blood Pressure 130/88 11/25/24 16:34 Pulse Oximetry 95 11/25/24 16:34 Oxygen Delivery Nasal Cannula 11/25/24 11:47 Oxygen Flow Rate 2 11/25/24 11:47 Medical Decision Making MDM Narrative Medical decision making narrative: 64-year-old female presented emergency department for evaluation for worsening shortness of breath. Patient did recently complete a course of azithromycin and Augmentin. Patient reports over last 2 days she has had worsening shortness of breath. Upon arrival to the emergency department patient did have significant increased work of breathing and did have minimal air movement. After a 5 mg nebulized albuterol patient did have more air movement and did have significant wheeze exam. Patient is currently afebrile with no leukocytosis and hemoglobin of 13.5. INR is 1.0. Patient does have an anion gap of 20 but is not diabetic. Patient did test positive for RSV. CT was ordered to evaluate for pulmonary embolism and there was no evidence of pulmonary embolism and no comment on an underlying pneumonia. The patient was positive for RSV with a significant smoking history I suspect this is related to a COPD exacerbation. I discussed the case with the primary care physician and patient was accepted. Differential Diagnosis Differential Diagnosis: COVID, RSV, influenza, pneumonia, COPD, pulmonary embolism Vital Signs Vital Signs: Vital Signs Temperature 98.1 F 11/25/24 10:43 Pulse Rate 102 H 11/25/24 10:43 Respiratory Rate 20 11/25/24 10:43 Blood Pressure 178/96 H 11/25/24 10:43 Pulse Oximetry 92 11/25/24 10:43 Oxygen Delivery Room Air 11/25/24 10:43 Temperature 98.2 F 11/25/24 16:34 Pulse Rate 100 11/25/24 16:34 Respiratory Rate 20 11/25/24 16:34 Blood Pressure 130/88 11/25/24 16:34 Pulse Oximetry 95 11/25/24 16:34 Oxygen Delivery Nasal Cannula 11/25/24 11:47 Oxygen Flow Rate 2 11/25/24 11:47 Lab Data Lab results reviewed: Yes I reviewed the patient's lab results. 11/25/24 12:21 11/25/24 12:21 Labs: Lab Results 11/25/24 Range/Units 12:21 WBC 7.1 (4.5-10.0) K/mm3 RBC 4.15 L (4.2-5.4) M/mm3 Hgb 13.5 (12.0-15.0) g/dL Hct 40.6 (37.0-47.0) % MCV 97.8 (80-100) fl MCH 32.5 (26-34) pg MCHC 33.3 (32-36) g/dl RDW 12.8 (11.5-14.5) % Plt Count 245 (150-375) k/mm3 MPV 9.1 (7.4-10.4) fl Immature Gran % (Auto) 0.3 (0-0.5) % Neut % (Auto) 79.6 H (45.5-73.1) % Lymph % (Auto) 9.6 L (18.3-44.2) % [place] % (Auto) 10.1 H (2.6-8.5) % Eos % (Auto) 0.1 (0-4.4) % Baso % (Auto) 0.3 (0.2-1.2) % Lymph # (Auto) 0.68 L (0.9-3.2) K/mm3 [place] # (Auto) 0.7 H (0.1-0.6) K/mm3 Eos # (Auto) 0.0 (0-0.3) K/mm3 Baso # (Auto) 0.0 (0.0-0.1) K/mm3 Abs Immat Gran (auto) 0.02 (0.00-0.031) K/mm3 Absolute Neuts (auto) 5.6 (1.3-6.7) K/mm3 Absolute Nucleated RBC 0.000 (0.0-0.012) K/mm3 Nucleated RBC % 0.0 (0.0-0.2) % PT 13.3 (11.1-14.7) Seconds INR 1.0 APTT 28.4 (22.3-36.8) Seconds Sodium 139 (137-145) mmol/L Potassium 3.9 (3.4-5.0) mmol/L Chloride 101 (98-107) mmol/L Carbon Dioxide 18 L (22-30) mmol/L Anion Gap 20 H (4-12) mmol/L BUN 12 (7-17) mg/dL Creatinine 0.77 (0.7-1.0) mg/dL Estim Creat Clear Calc Not Reportable Estimated GFR > 60 (59 - ) Glucose 86 (65-110) mg/dL Calcium 9.9 (8.4-10.2) mg/dL Total Bilirubin 0.8 (0.2-1.3) mg/dL AST 34 (14-36) U/L ALT 33 (6-35) U/L Alkaline Phosphatase 72 (38-126) U/L Total Protein 8.0 (6.3-8.2) g/dL Albumin 4.5 (3.5-5.1) g/dL Influenza A (RT-PCR) Negative (Negative) Influenza B (RT-PCR) Negative (Negative) RSV (RT-PCR) Positive A (Negative) SARS-CoV-2 RNA (RT-PCR) Negative (Negative) Imaging Data Radiologist's impression: Impressions Chest X-Ray 11/25/24 11:45 IMPRESSION: 1. No acute cardiopulmonary disease. Chest CTA 11/25/24 13:12 IMPRESSION: 1. No pulmonary embolism or other acute cardiopulmonary disease. Discharge Plan Discharge Clinical Impression: RSV infection, COPD exacerbation Patient Disposition: Still a Patient Condition: Stable
--- NOTE | 2024-11-25 11:46 | PC.NURSE ---
Patient ambulated with pulse ox on and oxygen went down to 93%. When patient got back into room she was down to 91%. patient was labored breathing so placed on 2L oxygen NC
[2024-11-25] MEDS: ALBUTEROL SULFATE NEB 2.5 MG/3 ML INH 5 MG INHALATION ×2 (12:06→13:41)
[2024-11-25 12:27] LABS: Basophils Percent Auto 0.3 % (0.2-1.2); Eosinophils Percent Auto 0.1 % (0-4.4); Hematocrit 40.6 % (37.0-47.0); Hemoglobin 13.5 g/dL (12.0-15.0); Immature Granulocyte Absolute 0.02 K/mm3 (0.00-0.031); Immature Granulocyte Percent A 0.3 % (0-0.5); Lymphocytes Absolute Auto 0.68 K/mm3 (0.9-3.2); Lymphocytes Percent Auto 9.6 % (18.3-44.2); Mean Corpuscular HGB Conc 33.3 g/dl (32-36); Mean Corpuscular Hemoglobin 32.5 pg (26-34); Mean Corpuscular Volume 97.8 fl (80-100); Mean Platelet Volume 9.1 fl (7.4-10.4); Monocytes Absolute Auto 0.7 K/mm3 (0.1-0.6); Monocytes Percent Auto 10.1 % (2.6-8.5); Neutrophils Absolute Auto 5.6 K/mm3 (1.3-6.7); Neutrophils Percent Auto 79.6 % (45.5-73.1); Platelet Count Result 245 k/mm3 (150-375); Red Blood Count 4.15 M/mm3 (4.2-5.4); Red Cell Distribution Width 12.8 % (11.5-14.5); White Blood Count 7.1 K/mm3 (4.5-10.0)
[2024-11-25 12:39] LABS: Prothrombin Time 13.3 Seconds (11.1-14.7)
[2024-11-25 12:40] LABS: Alanine Aminotransferase 33 U/L (6-35); Albumin Level 4.5 g/dL (3.5-5.1); Alkaline Phosphatase 72 U/L (38-126); Anion Gap 20 mmol/L (4-12); Aspartate Amino Transferase 34 U/L (14-36); Bilirubin,Total 0.8 mg/dL (0.2-1.3); Blood Urea Nitrogen 12 mg/dL (7-17); Calcium 9.9 mg/dL (8.4-10.2); Carbon Dioxide 18 mmol/L (22-30); Chloride 101 mmol/L (98-107); Estimated Glomerular Filt Rate > 60; Glucose 86 mg/dL (65-110); Partial Thromboplastin Time 28.4 Seconds (22.3-36.8); Potassium 3.9 mmol/L (3.4-5.0); Sodium 139 mmol/L (137-145)
[2024-11-25 13:02] LABS: Influenza A QL RT-PCR Negative (Negative); Influenza B QL RT-PCR Negative (Negative); RSV RNA, RT-PCR Positive (Negative); SARS-CoV-2 RNA PCR Negative (Negative)
[2024-11-25] MEDS: methylPREDNISolone SOD SUCC 125 MG VIAL IV PUSH (14:07)
--- NOTE | 2024-11-25 14:35 | PM.IMHP ---
H&P: HPI History of Present Illness Date/Time: 11/25/24 14:35 Chief Complaint: Shortness of breath. Narrative: This is a very pleasant 64-year-old female with hypertension, hyperlipidemia, hypothyroidism, hemorrhagic stroke in July 2023, and a 12.5 pack-year smoking history (quit in 2005) who presented to the emergency department via private vehicle with complaints of shortness of breath. The patient provides the following history. She had an upper respiratory infection in September 2024 and she has had ongoing issue since that time with cough occasionally productive clear/white phlegm, wheezing, and shortness of breath with exertion. She saw her primary care provider a few weeks ago due to ongoing symptoms and she was prescribed a short course of steroids and antibiotics. Initially she felt a bit better however once again she is feeling increasingly short of breath and wheezing. She was diagnosed with postviral asthma in 2019 but according to the patient she was never officially diagnosed with asthma or chronic obstructive pulmonary. Prior to this illness, she was not having any issues. She denies fever, chills, sweats, chest pain, pleuritic pain, orthopnea, paroxysmal nocturnal dyspnea, lower extremity edema, calf pain, nausea, and vomiting. In the ED: She was afebrile on arrival with stable vital signs. CMP and CBC were pretty unremarkable. She tested positive for RSV. Chest CTA was negative for pulmonary embolism or acute cardiopulmonary disease. She received methylprednisolone 125 mg and an albutero nebulizer and she is being admitted in this setting for further treatment of acute bronchitis related to RSV. Review of Systems Review of Systems: 12 systems were reviewed and are negative except for as per HPI. 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 Code status: Full code. Smoking packs per day: 0.5 Smoking cigarettes per day: 10.0 Years smoked: 25 Smoking pack-years: 12.50 Smoking status: Never smoker Tobacco type: cigarettes Second hand tobacco smoke exposure: No Smoking end date: 10/17/05 Alcohol intake: never Alcohol use details: social alcohol use in moderation Substance use: never Substance use type: does not use Do You Feel Safe in your Home?: Yes Lack of Transportation: No Lack of Food: Never True Current Housing: I Have Housing Concerned About Future Housing: No Difficulty Paying Gas/Electric Bills: No Difficulty Paying for Meds: No Currently Unemployed: No Education: Bachelor's Degree Difficulty w/ Childcare or Family Care: No Spiritual care concerns: No Agree to blood products: Yes Meds Home Medications and Allergies Home Medications ?Medication ?Instructions ?Recorded ?Confirmed ?Type vitamin E (dl, acetate) 180 mg 400 unit PO DAILY 10/16/19 11/25/24 History (400 unit) capsule B-complex with vitamin C (Super B 1 tablet PO DAILY 04/22/20 11/25/24 History Complex-Vitamin C tablet) levothyroxine 100 mcg tablet 100 mcg PO DAILY 12/24/20 11/25/24 History cholecalciferol (vitamin D3) 125 125 mcg PO DAILY 02/15/22 11/25/24 History mcg (5,000 unit) capsule ascorbate calcium (vitamin C) 500 1 g PO DAILY 03/03/23 11/25/24 History mg tablet cyanocobalamin (vitamin B-12) 5,000 mcg PO DAILY 03/03/23 11/25/24 History 2,500 mcg tablet krill 350 mg-omega-3 90 mg-dha 24 1 cap PO DAILY #1 cap 03/03/23 11/25/24 Rx mg-epa 50 my-gfdmeaa-izzoe capsule (MegaRed [place]-3 Krill Oil) budesonide-formoterol HFA 160 2 puff inhalation Q12H #10.2 grams 11/28/23 11/25/24 Rx mcg-4.5 mcg/actuation aerosol inhaler (Symbicort) ezetimibe 10 mg tablet (Zetia) 10 mg PO DAILY #90 tabs 03/19/24 11/25/24 Rx rosuvastatin 40 mg tablet 40 mg PO DAILY #90 tabs 03/19/24 11/25/24 Rx fluticasone propionate 50 See Rx Instructions .Route 08/17/24 11/25/24 Rx mcg/actuation nasal .COMPLEX #48 grams spray,suspension losartan 100 mg tablet See Rx Instructions .Route 10/31/24 11/25/24 Rx .COMPLEX #90 tabs albuterol sulfate 90 mcg/actuation 2 inh inhalation Q4H PRN shortness 11/06/24 11/25/24 Rx aerosol inhaler of breath or wheezing #8.5 grams carvedilol 25 mg tablet 25 mg PO BID #180 tabs 11/10/24 11/25/24 Rx Allergies Allergy/AdvReac Type Severity Reaction Status Date / Time No Known Allergies Allergy Verified 11/25/24 10:42 Vital Signs Vital Signs - 24 hr 11/25/24 10:43 11/25/24 11:47 11/25/24 12:09 Temperature 98.1 F Pulse Rate 102 H 100 Respiratory Rate 20 20 Blood Pressure 178/96 H Pulse Oximetry 92 96 Oxygen Delivery Room Air Nasal Cannula Oxygen Flow Rate 2 11/25/24 12:23 11/25/24 13:21 11/25/24 13:44 Temperature Pulse Rate 101 H 102 H 107 H Respiratory Rate 20 17 22 H Blood Pressure 149/84 H Pulse Oximetry 96 Oxygen Delivery Oxygen Flow Rate 11/25/24 13:56 11/25/24 14:16 Temperature Pulse Rate 103 H 102 H Respiratory Rate 20 20 Blood Pressure 145/80 H Pulse Oximetry 96 Oxygen Delivery Oxygen Flow Rate Exam Narrative: General: Mildly ill-appearing female sitting up in bed in no acute distress. Weight: 77.27 kg. BMI: 23.8. HEENT: PERRL, EOMI. Sclera anicteric. Tacky mucous membranes. Oropharynx is clear. Neck: Supple. No JVD or lymphadenopathy. Respiratory: Mild conversational dyspnea though she appears in no acute respiratory distress. Lung sounds are tight and diminished throughout with diffuse wheezing. Cardiovascular: Regular rate and rhythm with S1-S2. Gastrointestinal: Abdomen is soft, nontender, and nondistended with positive bowel sounds. Skin: Warm and dry. No rash or lesions on limited exam. Extremities: No cyanosis, clubbing, or edema. Radial and pedal pulses intact. No palpable knots or cords. Negative Hannah sign bilaterally. Neurological: Alert. Cranial nerves 2-12 are grossly intact. No gross focal deficits to casual conversation. Psychiatric: Pleasant and cooperative with normal mood and affect. Judgment and insight intact. H&P: Results Labs Labs: Short CBC 11/25/24 Range/Units 12:21 WBC 7.1 (4.5-10.0) K/mm3 Hgb 13.5 (12.0-15.0) g/dL Hct 40.6 (37.0-47.0) % Plt Count 245 (150-375) k/mm3 BMP 11/25/24 12:21 Sodium 139 Potassium 3.9 Chloride 101 Carbon Dioxide 18 L BUN 12 Creatinine 0.77 Glucose 86 Calcium 9.9 Liver Function 11/25/24 Range/Units 12:21 Total Bilirubin 0.8 (0.2-1.3) mg/dL AST 34 (14-36) U/L ALT 33 (6-35) U/L Alkaline Phosphatase 72 (38-126) U/L Albumin 4.5 (3.5-5.1) g/dL Impressions Chest X-Ray 11/25/24 11:45 IMPRESSION: 1. No acute cardiopulmonary disease. Chest CTA 11/25/24 13:12 IMPRESSION: 1. No pulmonary embolism or other acute cardiopulmonary disease. Assessment and Plan Assessment and plan (1) Acute bronchitis due to respiratory syncytial virus: Code(s): J20.5 - Acute bronchitis due to respiratory syncytial virus Status: Acute (2) Hypertension: Code(s): I10 - Essential (primary) hypertension Status: Acute (3) Dyslipidemia: Code(s): E78.5 - Hyperlipidemia, unspecified Status: Acute (4) Hypothyroidism: Qualifiers: Hypothyroidism type: acquired Qualified Code(s): E03.9 - Hypothyroidism, unspecified Code(s): E03.9 - Hypothyroidism, unspecified Status: Acute Plan The patient presented to the emergency department with ongoing cough, wheezing, and shortness of breath for well over 6 weeks as detailed in HPI. Labs, imaging, EKG, and all reports were personally reviewed. She had a URI in September and never really recovered. She now has acute bronchitis related to RSV infection. She has been started on scheduled nebulizer and steroids. Mucinex and Cornet ordered to help mobilize secretions. No indication for antibiotics as she recently completed a course without benefit. She would probably benefit from a pulmonology referral as an outpatient for official pulmonary function tests when she is feeling better. Vital signs were reviewed and they are stable. She reports that her chronic medical conditions are well controlled on home medications. Findings and treatment plan were discussed with the patient. Questions were solicited and answered to satisfaction. The patient's medical management will be taken over by the hospitalist team in a.m. Quality VTE Prophylaxis VTE prophylaxis: mechanical ordered If No VTE Prophylaxis Answer both mechanical and pharmacologic: Reason no pharmacologic proph: medical contraindication (history cerebellar hemorrhage 07/2023) Hospitalist [facility] Advance Care Plan I have confirmed that the patient's Advanced Care Plan is present, code status is documented, or surrogate decision maker is listed in patient medical record.: Yes Medication Reconciliation I have utilized all available resources to obtain, update and review the patients current medications (includes all prescriptions, OTC, herbals, cannabis, and nutritional supplements).: Yes
[2024-11-25] MEDS: ACETAMINOPHEN 325 MG TABLET 650 MG PO (17:40)
[2024-11-25] MEDS: methylPREDNISolone SOD SUCC 125 MG VIAL 60 MG IV PUSH (17:43)
[2024-11-25] MEDS: ALBUTEROL SULFATE NEB 2.5 MG/3 ML INH INHALATION ×2 (20:05→23:18)
[2024-11-25] MEDS: FLUTICASONE/SALMETEROL 115-21 MCG INHALER 1 PUFF 2 PUFF INHALATION (20:08)
[2024-11-25] MEDS: carvediloL 25 MG TABLET PO (21:01)
[2024-11-26] VITALS (14 sets, daily range): BP systolic 106–151; BP diastolic 67–86; PULSE 63–93; RESP 16–22; TEMP 36.1–36.3; O2SAT 90–97
[2024-11-26] MEDS: guaiFENesin 12 HR 600 MG TABCR 1200 MG PO ×3 (00:30→20:54)
[2024-11-26] MEDS: methylPREDNISolone SOD SUCC 125 MG VIAL 40 MG IV PUSH ×4 (00:31→18:45)
[2024-11-26] MEDS: ALBUTEROL SULFATE NEB 2.5 MG/3 ML INH INHALATION ×5 (03:53→23:02)
[2024-11-26] MEDS: LEVOTHYROXINE SODIUM 100 MCG TABLET PO (06:21)
--- NOTE | 2024-11-26 07:50 | P.PNIM_ITS ---
Progress Note: A&P Assessment and Plan (1) Acute bronchitis due to respiratory syncytial virus: Code(s): J20.5 - Acute bronchitis due to respiratory syncytial virus Status: Acute (2) Hypertension: Code(s): I10 - Essential (primary) hypertension Status: Acute (3) Dyslipidemia: Code(s): E78.5 - Hyperlipidemia, unspecified Status: Acute (4) Hypothyroidism: Qualifiers: Hypothyroidism type: acquired Qualified Code(s): E03.9 - Hypothyroidism, unspecified Code(s): E03.9 - Hypothyroidism, unspecified Status: Acute Plan The patient presented to the emergency department with ongoing cough, wheezing, and shortness of breath for well over 6 weeks as detailed in HPI. She had a URI in September and never really recovered. She now has acute bronchitis related to RSV infection. - started on scheduled nebulizer and steroids. - methylprednisolone 40 mg q6h (125 IV given in ed on 11/25) - Mucinex and Cornet ordered to help mobilize secretions. No indication for antibiotics as she recently completed a course without benefit. - consider pulmonology referral as an outpatient for pulmonary function tests and further evaluation # htn- restart home meds and monitor # hld- restart home meds # hypothyroidism- restart home meds Time Spent With Patient Time with patient: 25 - 35 minutes Subjective Date/time seen: 11/26/24 07:50 Interval history: 64-year-old female with PMH/o hypertension, hyperlipidemia, hypothyroidism, hemorrhagic stroke in July 2023, and a 12.5 pack-year smoking history (quit in 2005) admitted with complaints of shortness of breath. Had URI in september 2024 and ever since then had ongoing issue with cough occasionally productive clear/white phlegm, wheezing, and shortness of breath with exertion. She saw her primary care provider and she was prescribed a short course of steroids and antibiotics. Initially she felt better but later started feeling increasingly short of breath and wheezing. Of note, she was diagnosed with postviral asthma in 2019 but she was never officially diagnosed with asthma or COPD. She denies fever, chills, sweats, chest pain, pleuritic pain, orthopnea, paroxysmal nocturnal dyspnea, lower extremity edema, calf pain, nausea, and vomiting. In the ED: She was afebrile on arrival with stable vital signs. CMP and CBC were pretty unremarkable. She tested positive for RSV. Chest CTA was negative for pulmonary embolism or acute cardiopulmonary disease. She received methylprednisolone 125 mg and an albutero nebulizer and she is being admitted in this setting for further treatment of acute bronchitis related to RSV. Pt is seen and examined. She is being treated for an acute bronchitis related to RSV infection. She has been started on scheduled nebulizer and steroids, mucinex and Cornet ordered to help mobilize secretions. Review of Systems Review of Systems: 12 systems were reviewed and are negativ e except for as per HPI. Exam Narrative: General: Mildly ill-appearing female sitting up in bed in no acute distress. Weight: 77.27 kg. BMI: 23.8. HEENT: PERRL, EOMI. Sclera anicteric. Tacky mucous membranes. Oropharynx is clear. Neck: Supple. No JVD or lymphadenopathy. Respiratory: Mild conversational dyspnea though she appears in no acute respiratory distress. Lung sounds are tight and diminished throughout with diffuse wheezing. Cardiovascular: Regular rate and rhythm with S1-S2. Gastrointestinal: Abdomen is soft, nontender, and nondistended with positive bowel sounds. Skin: Warm and dry. No rash or lesions on limited exam. Extremities: No cyanosis, clubbing, or edema. Radial and pedal pulses intact. No palpable knots or cords. Negative Hannah sign bilaterally. Neurological: Alert. Cranial nerves 2-12 are grossly intact. No gross focal deficits to casual conversation. Psychiatric: Pleasant and cooperative with normal mood and affect. Judgment and insight intact. Objective Data Vital Signs Vital Signs: Vital Signs - 24 hr 11/25/24 10:43 11/25/24 11:47 11/25/24 12:09 Temperature 98.1 F Pulse Rate 102 H 100 Respiratory Rate 20 20 Blood Pressure 178/96 H Pulse Oximetry 92 96 Oxygen Delivery Room Air Nasal Cannula Oxygen Flow Rate 2 Fraction of Inspired Oxygen 11/25/24 12:23 11/25/24 13:21 11/25/24 13:44 Temperature Pulse Rate 101 H 102 H 107 H Respiratory Rate 20 17 22 H Blood Pressure 149/84 H Pulse Oximetry 96 Oxygen Delivery Oxygen Flow Rate Fraction of Inspired Oxygen 11/25/24 13:56 11/25/24 14:16 11/25/24 16:34 Temperature 98.2 F Pulse Rate 103 H 102 H 100 Respiratory Rate 20 20 20 Blood Pressure 145/80 H 130/88 Pulse Oximetry 96 95 Oxygen Delivery Oxygen Flow Rate Fraction of Inspired Oxygen 11/25/24 20:08 11/25/24 20:08 11/25/24 20:23 Temperature Pulse Rate 102 H 90 Respiratory Rate 20 20 Blood Pressure Pulse Oximetry 93 Oxygen Delivery Nasal Cannula Oxygen Flow Rate 2 Fraction of Inspired Oxygen 28 11/25/24 20:59 11/25/24 21:01 11/25/24 23:19 Temperature 97.8 F Pulse Rate 86 86 91 Respiratory Rate 16 20 Blood Pressure 135/71 Pulse Oximetry 95 Oxygen Delivery Oxygen Flow Rate Fraction of Inspired Oxygen 11/25/24 23:28 11/26/24 03:53 11/26/24 04:03 Temperature Pulse Rate 82 79 77 Respiratory Rate 20 20 20 Blood Pressure Pulse Oximetry Oxygen Delivery Oxygen Flow Rate Fraction of Inspired Oxygen 11/26/24 06:00 Temperature 97.4 F L Pulse Rate 78 Respiratory Rate 22 H Blood Pressure 151/86 H Pulse Oximetry 92 Oxygen Delivery Oxygen Flow Rate Fraction of Inspired Oxygen Intake/Output Intake/Output: Intake & Output 11/23/24 11/24/24 11/25/24 11/26/24 23:59 23:59 23:59 23:59 Intake Total 380 100 Balance 380 100 Meds/Results Medications: Active Medications Generic Name Dose Route Start Last Admin Trade Name Freq PRN Reason Stop Dose Admin Acetaminophen 650 mg 11/25/24 15:28 11/25/24 17:40 Acetaminophen 325 Mg Tablet PO 650 mg Q6H PRN Administration Mild Pain (1-3) or Fever Albuterol 2.5 mg 11/26/24 00:00 11/26/24 03:53 Albuterol Sulfate Neb 2.5 Mg/3 Ml Inh INHALATION 2.5 mg Q4HRT AMEE Administration Ascorbic Acid 1,000 mg 11/26/24 09:00 Ascorbic Acid 500 Mg Tablet PO DAILY AMEE Carvedilol 25 mg 11/25/24 21:00 11/25/24 21:01 Carvedilol 25 Mg Tablet PO 25 mg Q12HR AMEE Administration Cyanocobalamin 5,000 mcg 11/26/24 09:00 Cyanocobalamin 1,000 Mcg Tablet PO DAILY AMEE Ezetimibe 10 mg 11/26/24 09:00 Ezetimibe 10 Mg Tablet PO DAILY AMEE Fluticasone Propionate 2 spray 11/26/24 09:00 Fluticasone Propionate 0.05% Na Spr 16 Gm Btl (*Bkc) NASAL DAILY AMEE Guaifenesin 1,200 mg 11/25/24 21:15 11/26/24 00:30 Guaifenesin 12 Hr 600 Mg Tabcr PO 1,200 mg Q12HR AMEE Administration Levothyroxine Sodium 100 mcg 11/26/24 06:30 11/26/24 06:21 Levothyroxine Sodium 100 Mcg Tablet PO 100 mcg DAILY@0630 AMEE Administration Losartan Potassium 100 mg 11/26/24 09:00 Losartan Potassium 100 Mg Tablet BY MOUTH DAILY [facility] Methylprednisolone Sodium Succinate 40 mg 11/26/24 00:00 11/26/24 06:21 Methylprednisolone Sod Succ 125 Mg Vial IV PUSH 40 mg Q6HR AMEE Administration Miscellaneous Information 1 each 11/26/24 00:01 Krill Oil [place] 3 Nonform; Ok To Switch To [place] 1 Gm? XX 12/26/24 00:00 CLARIFY [facility] Non-Formulary Medication 1 cap 11/26/24 09:00 [id number] [Megared [place]-3 Krill Oil] PO 12/26/24 08:59 DAILY [facility] Rosuvastatin Calcium 40 mg 11/26/24 09:00 Rosuvastatin 20 Mg Tablet PO DAILY [facility] Fluticasone/Salmeterol 2 puff 11/25/24 20:00 11/25/24 20:08 Fluticasone/Salmeterol 115-21 Mcg Inhaler 1 Puff INHALATION 2 puff Q12HRT [facility] Administration Vitamin B Complex/Vitamin C 1 each 11/26/24 09:00 Vitamin B Complex/Vit C Capsule PO DAILY [facility] Vitamin D 5,000 units 11/26/24 09:00 Cholecalciferol 1,000 Units Tablet PO DAILY [facility] Vitamin E 400 unit 11/26/24 09:00 Vitamin E 400 Unit Capsule PO DAILY [facility] Radiology Results: ITS Impressions Chest X-Ray 11/25/24 11:45 IMPRESSION: 1. No acute cardiopulmonary disease. Chest CTA 11/25/24 13:12 IMPRESSION: 1. No pulmonary embolism or other acute cardiopulmonary disease. Labs Labs: Laboratory Results - last 24 hr 11/25/24 12:21 WBC 7.1 RBC 4.15 L Hgb 13.5 Hct 40.6 MCV 97.8 MCH 32.5 MCHC 33.3 RDW 12.8 Plt Count 245 MPV 9.1 Immature Gran % (Auto) 0.3 Neut % (Auto) 79.6 H Lymph % (Auto) 9.6 L [place] % (Auto) 10.1 H Eos % (Auto) 0.1 Baso % (Auto) 0.3 Lymph # (Auto) 0.68 L [place] # (Auto) 0.7 H Eos # (Auto) 0.0 Baso # (Auto) 0.0 Abs Immat Gran (auto) 0.02 Absolute Neuts (auto) 5.6 Absolute Nucleated RBC 0.000 Nucleated RBC % 0.0 PT 13.3 INR 1.0 APTT 28.4 Sodium 139 Potassium 3.9 Chloride 101 Carbon Dioxide 18 L Anion Gap 20 H BUN 12 Creatinine 0.77 Estim Creat Clear Calc Not Reportable Estimated GFR > 60 Glucose 86 Calcium 9.9 Total Bilirubin 0.8 AST 34 ALT 33 Alkaline Phosphatase 72 Total Protein 8.0 Albumin 4.5 Influenza A (RT-PCR) Negative Influenza B (RT-PCR) Negative RSV (RT-PCR) Positive A SARS-CoV-2 RNA (RT-PCR) Negative Quality VTE Prophylaxis VTE prophylaxis: mechanical ordered
[2024-11-26 08:01] LABS: Hemoglobin 12.8 g/dL (12.0-15.0); Immature Granulocyte Absolute 0.03 K/mm3 (0.00-0.031); Immature Granulocyte Percent A 0.6 % (0-0.5); Lymphocytes Absolute Auto 0.66 K/mm3 (0.9-3.2); Lymphocytes Percent Auto 13.3 % (18.3-44.2); Mean Corpuscular HGB Conc 32.8 g/dl (32-36); Mean Corpuscular Hemoglobin 31.9 pg (26-34); Mean Corpuscular Volume 97.3 fl (80-100); Mean Platelet Volume 9.5 fl (7.4-10.4); Monocytes Absolute Auto 0.2 K/mm3 (0.1-0.6); Monocytes Percent Auto 3.4 % (2.6-8.5); Neutrophils Absolute Auto 4.1 K/mm3 (1.3-6.7); Neutrophils Percent Auto 82.7 % (45.5-73.1); Platelet Count Result 269 k/mm3 (150-375); Red Blood Count 4.01 M/mm3 (4.2-5.4)
[2024-11-26 08:53] LABS: Anion Gap 17 mmol/L (4-12); Blood Urea Nitrogen 13 mg/dL (7-17); Calcium 9.9 mg/dL (8.4-10.2); Carbon Dioxide 22 mmol/L (22-30); Chloride 100 mmol/L (98-107); Estimated CRCL calculation 82 ml/min; Estimated Glomerular Filt Rate > 60; Glucose 137 mg/dL (65-110); Sodium 139 mmol/L (137-145)
[2024-11-26] MEDS: FLUTICASONE PROPIONATE 0.05% NA SPR 16 GM BTL (*BKC) 2 SPRAY NASAL (09:10)
[2024-11-26] MEDS: CHOLECALCIFEROL 1,000 UNITS TABLET 5000 UNITS PO (09:11)
[2024-11-26] MEDS: VITAMIN E 400 UNIT CAPSULE PO (09:11)
[2024-11-26] MEDS: ROSUVASTATIN 20 MG TABLET 40 MG PO (09:11)
[2024-11-26] MEDS: CYANOCOBALAMIN 1,000 MCG TABLET 5000 MCG PO (09:11)
[2024-11-26] MEDS: carvediloL 25 MG TABLET PO ×2 (09:12→20:54)
[2024-11-26] MEDS: EZETIMIBE 10 MG TABLET PO (09:12)
[2024-11-26] MEDS: LOSARTAN POTASSIUM 100 MG TABLET BY MOUTH (09:12)
[2024-11-26] MEDS: ASCORBIC ACID 500 MG TABLET 1000 MG PO (09:13)
[2024-11-26] MEDS: VITAMIN B COMPLEX/VIT C CAPSULE 1 EACH PO (09:13)
[2024-11-26] MEDS: FLUTICASONE/SALMETEROL 115-21 MCG INHALER 1 PUFF 2 PUFF INHALATION (20:05)
[2024-11-27] VITALS (20 sets, daily range): BP systolic 112–137; BP diastolic 65–79; PULSE 61–89; RESP 13–22; TEMP 36.6–36.7; O2SAT 89–95
[2024-11-27] MEDS: methylPREDNISolone SOD SUCC 125 MG VIAL 40 MG IV PUSH ×5 (00:06→23:56)
[2024-11-27] MEDS: ALBUTEROL SULFATE NEB 2.5 MG/3 ML INH INHALATION ×5 (04:44→20:00)
[2024-11-27] MEDS: LEVOTHYROXINE SODIUM 100 MCG TABLET PO (06:32)
[2024-11-27] MEDS: FLUTICASONE/SALMETEROL 115-21 MCG INHALER 1 PUFF 2 PUFF INHALATION ×2 (06:52→20:00)
[2024-11-27] MEDS: carvediloL 25 MG TABLET PO ×2 (08:59→20:48)
[2024-11-27] MEDS: EZETIMIBE 10 MG TABLET PO (09:00)
[2024-11-27] MEDS: ROSUVASTATIN 20 MG TABLET 40 MG PO (09:00)
[2024-11-27] MEDS: CHOLECALCIFEROL 1,000 UNITS TABLET 5000 UNITS PO (09:00)
[2024-11-27] MEDS: guaiFENesin 12 HR 600 MG TABCR 1200 MG PO ×2 (09:00→20:48)
[2024-11-27] MEDS: VITAMIN B COMPLEX/VIT C CAPSULE 1 EACH PO (09:00)
[2024-11-27] MEDS: ASCORBIC ACID 500 MG TABLET 1000 MG PO (09:00)
[2024-11-27] MEDS: LOSARTAN POTASSIUM 100 MG TABLET BY MOUTH (09:00)
[2024-11-27] MEDS: CYANOCOBALAMIN 1,000 MCG TABLET 5000 MCG PO (09:00)
[2024-11-27] MEDS: FLUTICASONE PROPIONATE 0.05% NA SPR 16 GM BTL (*BKC) 2 SPRAY NASAL (09:01)
[2024-11-27] MEDS: VITAMIN E 400 UNIT CAPSULE PO (09:01)
--- NOTE | 2024-11-27 15:47 | P.PNIM_ITS ---
Progress Note: A&P Assessment and Plan (1) Acute bronchitis due to respiratory syncytial virus: Code(s): J20.5 - Acute bronchitis due to respiratory syncytial virus Status: Acute (2) Hypertension: Code(s): I10 - Essential (primary) hypertension Status: Acute (3) Dyslipidemia: Code(s): E78.5 - Hyperlipidemia, unspecified Status: Acute (4) Hypothyroidism: Qualifiers: Hypothyroidism type: acquired Qualified Code(s): E03.9 - Hypothyroidism, unspecified Code(s): E03.9 - Hypothyroidism, unspecified Status: Acute Plan The patient presented to the emergency department with ongoing cough, wheezing, and shortness of breath for well over 6 weeks as detailed in HPI. Still wheezing, desatting at rest She had a URI in September and never really recovered. She now has acute bronchitis related to RSV infection. - started on scheduled nebulizer and steroids. - methylprednisolone 40 mg q6h (125 IV given in ed on 11/25) - Mucinex and Cornet ordered to help mobilize secretions. No indication for antibiotics as she recently completed a course without benefit. - consider pulmonology referral as an outpatient for pulmonary function tests and further evaluation --Walking O2 for discharge # htn- restart home meds and monitor # hld- restart home meds # hypothyroidism- restart home meds Time Spent With Patient Time: 48 Subjective Date/time seen: 11/27/24 15:47 Interval history: Still needing 3L O2 with activity, desats <88% when O2 removed. Walking O2 for home 64-year-old female with PMH/o hypertension, hyperlipidemia, hypothyroidism, hemorrhagic stroke in July 2023, and a 12.5 pack-year smoking history (quit in 2005) admitted with complaints of shortness of breath. Had URI in september 2024 and ever since then had ongoing issue with cough occasionally productive clear/white phlegm, wheezing, and shortness of breath with exertion. She saw her primary care provider and she was prescribed a short course of steroids and antibiotics. Initially she felt better but later started feeling increasingly short of breath and wheezing. Of note, she was diagnosed with postviral asthma in 2019 but she was never officially diagnosed with asthma or COPD. She denies fever, chills, sweats, chest pain, pleuritic pain, orthopnea, paroxysmal nocturnal dyspnea, lower extremity edema, calf pain, nausea, and vomiting. In the ED: She was afebrile on arrival with stable vital signs. CMP and CBC were pretty unremarkable. She tested positive for RSV. Chest CTA was negative for pulmonary embolism or acute cardiopulmonary disease. She received methylprednisolone 125 mg and an albutero nebulizer and she is being admitted in this setting for further treatment of acute bronchitis related to RSV. Pt is seen and examined. She is being treated for an acute bronchitis related to RSV infection. She has been started on scheduled nebulizer and steroids, muc inex and Cornet ordered to help mobilize secretions. Review of Systems Review of Systems: 12 systems were reviewed and are negativ e except for as per HPI. Exam Narrative: General: Mildly ill-appearing female sitting up in bed in no acute distress. Weight: 77.27 kg. BMI: 23.8. HEENT: PERRL, EOMI. Sclera anicteric. Tacky mucous membranes. Oropharynx is clear. Neck: Supple. No JVD or lymphadenopathy. Respiratory: Mild conversational dyspnea though she appears in no acute respiratory distress. Lung sounds are tight and diminished throughout with diffuse wheezing. Cardiovascular: Regular rate and rhythm with S1-S2. Gastrointestinal: Abdomen is soft, nontender, and nondistended with positive bowel sounds. Skin: Warm and dry. No rash or lesions on limited exam. Extremities: No cyanosis, clubbing, or edema. Radial and pedal pulses intact. No palpable knots or cords. Negative Hannah sign bilaterally. Neurological: Alert. Cranial nerves 2-12 are grossly intact. No gross focal deficits to casual conversation. Psychiatric: Pleasant and cooperative with normal mood and affect. Judgment and insight intact. Objective Data Vital Signs Vital Signs: Vital Signs - 24 hr 11/26/24 15:55 11/26/24 15:55 11/26/24 16:05 Temperature Pulse Rate 68 68 63 Respiratory Rate 20 20 20 Blood Pressure Pulse Oximetry 96 Oxygen Delivery Nasal Cannula Oxygen Flow Rate 2 Fraction of Inspired Oxygen 11/26/24 20:00 11/26/24 20:05 11/26/24 20:05 Temperature Pulse Rate 71 Respiratory Rate 18 Blood Pressure Pulse Oximetry 94 93 Oxygen Delivery Nasal Cannula Nasal Cannula Oxygen Flow Rate 2.5 3 Fraction of Inspired Oxygen 11/26/24 20:12 11/26/24 20:54 11/26/24 21:04 Temperature 97.4 F L Pulse Rate 77 65 65 Respiratory Rate 18 16 Blood Pressure 106/67 Pulse Oximetry 97 Oxygen Delivery Oxygen Flow Rate Fraction of Inspired Oxygen 11/26/24 23:05 11/26/24 23:11 11/27/24 04:33 Temperature Pulse Rate 65 66 Respiratory Rate 18 18 Blood Pressure Pulse Oximetry 93 Oxygen Delivery Nasal Cannula Oxygen Flow Rate 2 Fraction of Inspired Oxygen 11/27/24 04:45 11/27/24 05:58 11/27/24 06:50 Temperature 98.1 F Pulse Rate 62 61 72 Respiratory Rate 18 13 18 Blood Pressure 137/70 Pulse Oximetry 95 Oxygen Delivery Oxygen Flow Rate Fraction of Inspired Oxygen 11/27/24 07:00 11/27/24 08:45 11/27/24 08:59 Temperature Pulse Rate 74 75 80 Respiratory Rate 18 18 Blood Pressure Pulse Oximetry 93 Oxygen Delivery Nasal Cannula Oxygen Flow Rate 2 Fraction of Inspired Oxygen 28 11/27/24 09:13 11/27/24 10:45 11/27/24 10:55 Temperature Pulse Rate 72 76 75 Respiratory Rate 18 18 18 Blood Pressure Pulse Oximetry 93 Oxygen Delivery Nasal Cannula Oxygen Flow Rate 2 Fraction of Inspired Oxygen 11/27/24 14:00 11/27/24 14:45 11/27/24 14:55 Temperature 98.1 F Pulse Rate 77 74 75 Respiratory Rate 14 18 18 Blood Pressure 112/65 Pulse Oximetry 92 Oxygen Delivery Oxygen Flow Rate Fraction of Inspired Oxygen Intake/Output Intake/Output: Intake & Output 11/24/24 11/25/24 11/26/24 11/27/24 23:59 23:59 23:59 23:59 Intake Total 380 820 970 Balance 380 820 970 Meds/Results Medications: Active Medications Generic Name Dose Route Start Last Admin Trade Name Freq PRN Reason Stop Dose Admin Acetaminophen 650 mg 11/25/24 15:28 11/25/24 17:40 Acetaminophen 325 Mg Tablet PO 650 mg Q6H PRN Administration Mild Pain (1-3) or Fever Albuterol 2.5 mg 11/26/24 00:00 11/27/24 14:45 Albuterol Sulfate Neb 2.5 Mg/3 Ml Inh INHALATION 2.5 mg Q4HRT AMEE Administration Ascorbic Acid 1,000 mg 11/26/24 09:00 11/27/24 09:00 Ascorbic Acid 500 Mg Tablet PO 1,000 mg DAILY AMEE Administration Carvedilol 25 mg 11/25/24 21:00 11/27/24 08:59 Carvedilol 25 Mg Tablet PO 25 mg Q12HR AMEE Administration Cyanocobalamin 5,000 mcg 11/26/24 09:00 11/27/24 09:00 Cyanocobalamin 1,000 Mcg Tablet PO 5,000 mcg DAILY AMEE Administration Ezetimibe 10 mg 11/26/24 09:00 11/27/24 09:00 Ezetimibe 10 Mg Tablet PO 10 mg DAILY AMEE Administration Fluticasone Propionate 2 spray 11/26/24 09:00 11/27/24 09:01 Fluticasone Propionate 0.05% Na Spr 16 Gm Btl (*Bkc) NASAL 2 spray DAILY AMEE Administration Guaifenesin 1,200 mg 11/25/24 21:15 11/27/24 09:00 Guaifenesin 12 Hr 600 Mg Tabcr PO 1,200 mg Q12HR AMEE Administration Levothyroxine Sodium 100 mcg 11/26/24 06:30 11/27/24 06:32 Levothyroxine Sodium 100 Mcg Tablet PO 100 mcg DAILY@0630 AMEE Administration Losartan Potassium 100 mg 11/26/24 09:00 11/27/24 09:00 Losartan Potassium 100 Mg Tablet BY MOUTH 100 mg DAILY AMEE Administration Methylprednisolone Sodium Succinate 40 mg 11/26/24 00:00 11/27/24 12:24 Methylprednisolone Sod Succ 125 Mg Vial IV PUSH 40 mg Q6HR AMEE Administration Rosuvastatin Calcium 40 mg 11/26/24 09:00 11/27/24 09:00 Rosuvastatin 20 Mg Tablet PO 40 mg DAILY AMEE Administration Fluticasone/Salmeterol 2 puff 11/25/24 20:00 11/27/24 06:52 Fluticasone/Salmeterol 115-21 Mcg Inhaler 1 Puff INHALATION 2 puff Q12HRT AMEE Administration Vitamin B Complex/Vitamin C 1 each 11/26/24 09:00 11/27/24 09:00 Vitamin B Complex/Vit C Capsule PO 1 each DAILY AMEE Administration Vitamin D 5,000 units 11/26/24 09:00 11/27/24 09:00 Cholecalciferol 1,000 Units Tablet PO 5,000 units DAILY AMEE Administration Vitamin E 400 unit 11/26/24 09:00 11/27/24 09:01 Vitamin E 400 Unit Capsule PO 400 unit DAILY AMEE Administration Radiology Results: ITS Impressions Chest X-Ray 11/25/24 11:45 IMPRESSION: 1. No acute cardiopulmonary disease. Chest CTA 11/25/24 13:12 IMPRESSION: 1. No pulmonary embolism or other acute cardiopulmonary disease. Quality VTE Prophylaxis VTE prophylaxis: mechanical ordered
[2024-11-28] VITALS (14 sets, daily range): BP systolic 142; BP diastolic 87; PULSE 65–90; RESP 16–18; TEMP 36.2; O2SAT 86–95
[2024-11-28] MEDS: ALBUTEROL SULFATE NEB 2.5 MG/3 ML INH INHALATION ×4 (00:02→13:00)
[2024-11-28] MEDS: methylPREDNISolone SOD SUCC 125 MG VIAL 40 MG IV PUSH (05:52)
[2024-11-28] MEDS: LEVOTHYROXINE SODIUM 100 MCG TABLET PO (05:52)
[2024-11-28] MEDS: FLUTICASONE PROPIONATE 0.05% NA SPR 16 GM BTL (*BKC) 2 SPRAY NASAL (08:45)
[2024-11-28] MEDS: CHOLECALCIFEROL 1,000 UNITS TABLET 5000 UNITS PO (08:46)
[2024-11-28] MEDS: CYANOCOBALAMIN 1,000 MCG TABLET 5000 MCG PO (08:46)
[2024-11-28] MEDS: ASCORBIC ACID 500 MG TABLET 1000 MG PO (08:46)
[2024-11-28] MEDS: guaiFENesin 12 HR 600 MG TABCR 1200 MG PO (08:46)
[2024-11-28] MEDS: LOSARTAN POTASSIUM 100 MG TABLET BY MOUTH (08:46)
[2024-11-28] MEDS: EZETIMIBE 10 MG TABLET PO (08:46)
[2024-11-28] MEDS: ROSUVASTATIN 20 MG TABLET 40 MG PO (08:47)
[2024-11-28] MEDS: VITAMIN E 400 UNIT CAPSULE PO (08:47)
[2024-11-28] MEDS: VITAMIN B COMPLEX/VIT C CAPSULE 1 EACH PO (08:47)
[2024-11-28] MEDS: carvediloL 25 MG TABLET PO (08:47)
[2024-11-28] MEDS: FLUTICASONE/SALMETEROL 115-21 MCG INHALER 1 PUFF 2 PUFF INHALATION (09:06)
--- NOTE | 2024-11-28 10:27 | HOMEO2EVAL ---
Evaluation was performed at [facility] Home Oxygen Evaluation RC: Home Oxygen (O2) Evaluation Start: 11/28/24 08:00 Freq: ONCE Status: Active Protocol: RPE Activity Type Activity Date Activity User E-sign Co-sign Detail Recorded Client Recorded Date Recorded By Document 11/28/24 09:24 [email or web address] [email or web address] 11/28/24 10:27 DJO Document 11/28/24 09:25 [email or web address] [email or web address] 11/28/24 10:27 DJO Document 11/28/24 09:30 [email or web address] [email or web address] 11/28/24 10:27 DJO Document 11/28/24 09:35 [email or web address] [email or web address] 11/28/24 10:27 DJO Document 11/28/24 09:40 [email or web address] [email or web address] 11/28/24 10:27 DJO Document 11/28/24 09:40 [email or web address] [email or web address] 11/28/24 10:27 DJO 11/28/24 11/28/24 11/28/24 09:24 09:25 09:30 Home O2 Evaluation [Oxygen] -Test Phase Resting Exercise Resting -Oxygen Delivery Room Air Nasal Cannula Nasal Cannula -Oxygen Flow Rate (L/min) 3 1 [Pulse Oximetry] -Pulse Oximetry (90-100 %) 86 L 91 88 L [Pulse Rate] -Pulse Rate (60-100 beats/min) 75 90 74 [Evaluation] -Activity Tolerance Good [Charges] -Evaluation Charges O2 Evaluation by Pulmonary 11/28/24 11/28/24 11/28/24 09:35 09:40 09:40 Home O2 Evaluation [Oxygen] -Test Phase Resting Exercise Resting -Oxygen Delivery Nasal Cannula Nasal Cannula Nasal Cannula -Oxygen Flow Rate (L/min) 2 2 2 [Pulse Oximetry] -Pulse Oximetry (90-100 %) 91 88 L 91 [Pulse Rate] -Pulse Rate (60-100 beats/min) 72 88 76 [Evaluation] -Activity Tolerance [Charges] -Evaluation Charges
--- NOTE | 2024-11-28 11:00 | PCRCNOTE ---
HOME O2 EVAL COMPLETE, 2L AT REST AND 3L WITH ACTIVITY. SET UP WITH [facility], PHONE NUMBER [phone]. TANK IN ROOM FOR DISCHARGE
--- NOTE | 2024-11-28 11:18 | P.DS_ITS ---
DS: Admitting Diagnosis Discharge Date 11/28/24 Admitting Diagnosis Acute Hypoxic respiratory failure, RSV DS: Discharge Diagnosis Discharge Diagnosis (1) Acute bronchitis due to respiratory syncytial virus: Code(s): J20.5 - Acute bronchitis due to respiratory syncytial virus Status: Acute (2) Hypertension: Code(s): I10 - Essential (primary) hypertension Status: Acute (3) Dyslipidemia: Code(s): E78.5 - Hyperlipidemia, unspecified Status: Acute (4) Hypothyroidism: Qualifiers: Hypothyroidism type: acquired Qualified Code(s): E03.9 - Hypothyroidism, unspecified Code(s): E03.9 - Hypothyroidism, unspecified Status: Acute Plan The patient presented to the emergency department with ongoing cough, wheezing, and shortness of breath for well over 6 weeks as detailed in HPI. She had a URI in September and never really recovered. She now has acute bronchitis related to RSV infection. - started on scheduled nebulizer and steroids. - methylprednisolone 40 mg q6h (125 IV given in ed on 11/25) - Mucinex and Cornet ordered to help mobilize secretions. No indication for antibiotics as she recently completed a course without benefit. - consider pulmonology referral as an outpatient for pulmonary function tests and further evaluation 11/28/24: * Follow up with Dr. Sheppard as outpt. * 2L supplemental oxygen at rest and 3L with activity. * Switch to oral taper for steroids. * Continue Advair, Guaifenesin and Albuterol. # htn- restart home meds and monitor # hld- restart home meds # hypothyroidism- restart home meds DS: Summary Hospital Course Reason for hospitalization: Hypoxic respiratory failure Hospital Course: This is a very pleasant 64-year-old female with hypertension, hyperlipidemia, hypothyroidism, hemorrhagic stroke in July 2023, and a 12.5 pack-year smoking history (quit in 2005) who presented to the emergency department via private vehicle with complaints of shortness of breath. She had an upper respiratory infection in September 2024 and she has had ongoing issue since that time with cough occasionally productive clear/white phlegm, wheezing, and shortness of breath with exertion. She saw her primary care provider a few weeks ago due to ongoing symptoms and she was prescribed a short course of steroids and antibiotics. Initially she felt a bit better however once again she is feeling increasingly short of breath and wheezing. She was diagnosed with postviral asthma in 2019 but according to the patient she was never officially diagnosed with asthma or chronic obstructive pulmonary. Prior to this illness, she was not having any issues. She denies fever, chills, sweats, chest pain, pleuritic pain, orthopnea, paroxysmal nocturnal dyspnea, lower extremity edema, calf pain, nausea, and vomiting. Pt follows with Dr. Sheppard for Pulmonology assessment and management. In the ED: She was afebrile on arrival with stable vital signs. CMP and CBC were pretty unremarkable. She tested positive for RSV. Chest CTA was negative for pulmonary embolism or acute cardiopulmonary disease. She received methylprednisolone 125 mg and an albuterol nebulizer and was admitted for supportive care. Throughout the hospitalization pt has received IV steroids and has gradually began to improve overall. She continues to require home oxygen, but overall has improved and states she feels a lot better. She had a home oxygen evaluation and needs to wear 2L at rest and 3L with activity. Oxygen has been brought to the hospital and she has arranged delivery at home for additional tanks. She is stable for discharge today and would like to be discharged at this time. Status at Discharge Cognitive/behavioral status at discharge: At baseline Functional status at discharge: independent ambulation Time Spent with Patient Time attestation: Total time spent providing and/or coordinating discharge services: Specific discharge activities: Follow up, medications, return to ER precautions. Exam Narrative: General: Mildly ill-appearing female sitting up in bed in no acute distress. HEENT: PERRL, EOMI. Sclera anicteric. Tacky mucous membranes. Oropharynx is clear. Neck: Supple. No JVD or lymphadenopathy. Respiratory: Mild conversational dyspnea though she appears in no acute respiratory distress. Scant wheezing throughout on expiration. Cardiovascular: Regular rate and rhythm with S1-S2. Gastrointestinal: Abdomen is soft, nontender, and nondistended with positive bowel sounds. Skin: Warm and dry. No rash or lesions on limited exam. Extremities: No cyanosis, clubbing, or edema. Radial and pedal pulses intact. No palpable knots or cords. Negative Hannah sign bilaterally. Neurological: Alert. Cranial nerves 2-12 are grossly intact. No gross focal deficits to casual conversation. Psychiatric: Pleasant and cooperative with normal mood and affect. Judgment and insight intact. DS: Data Data Completed and Pending Completed studies during hospitalization: ITS Impressions Chest X-Ray 11/25/24 11:45 IMPRESSION: 1. No acute cardiopulmonary disease. Chest CTA 11/25/24 13:12 IMPRESSION: 1. No pulmonary embolism or other acute cardiopulmonary disease. Discharge Plan Discharge Attending physician on discharge: Gabbi Santana Discharging Clinician: Gabbi Santana Anticipated Discharge Date/Time: 11/28/24 11:26 Patient Disposition: Home, Self-Care Activity: as tolerated Diet: as tolerated and regular Discharge Instructions: Please take all medications as ordered. Follow up with Dr. Sheppard. Use 2L oxygen at rest and increase to 3L with activity. If at any point you have any new or worsening symptoms, return to the ER. Patient Language: Venezuelan Stand Alone Forms: General Discharge Information Follow-up/Referrals: Anitra Sheppard MD [Physician] - Call for Appointment Laurne Luu APRN [Primary Care Provider] - Call for Appointment Discharge Medications: New guaifenesin [Mucus Relief ER] 600 mg Tablet Extended Release 12hr 1,200 mg PO Q12HR Qty: 40 0RF prednisone 10 mg tablet 10 mg PO DIRECTED Qty: 30 0RF Rx Instructions: 4 tabs daily for 3 days, 3 tabs daily for 3 days, 2 tabs daily for 3 days and 1 tab daily for 3 days Continued ascorbate calcium (vitamin C) 500 mg tablet 1 g PO DAILY cyanocobalamin (vitamin B-12) 2,500 mcg tablet 5,000 mcg PO DAILY MegaRed [place]-3 Krill Oil [id number] mg capsule 1 cap PO DAILY Qty: 1 0RF ezetimibe [Zetia] 10 mg tablet 10 mg PO DAILY Qty: 90 3RF rosuvastatin 40 mg tablet 40 mg PO DAILY Qty: 90 3RF albuterol sulfate 90 mcg/actuation HFA aerosol inhaler 2 inh inhalation Q4H PRN (Reason: shortness of breath or wheezing) Qty: 8.5 0RF B-complex with vitamin C [Super B Complex-Vitamin C] Tablet 1 tablet PO DAILY levothyroxine 100 mcg tablet 100 mcg PO DAILY cholecalciferol (vitamin D3) 125 mcg (5,000 unit) capsule 125 mcg PO DAILY budesonide-formoterol [Symbicort] 160-4.5 mcg/actuation HFA aerosol inhaler 2 puff INHALATION Q12H Qty: 10.2 3RF vitamin E (dl, acetate) 400 unit capsule 400 unit PO DAILY fluticasone propionate 50 mcg/actuation spray,suspension See Rx Instructions .ROUTE .COMPLEX Qty: 48 0RF Dose Instruction: SHAKE LIQUID AND USE 2 SPRAYS IN EACH NOSTRIL DAILY Rx Instructions: SHAKE LIQUID AND USE 2 SPRAYS IN EACH NOSTRIL DAILY losartan 100 mg tablet See Rx Instructions .ROUTE .COMPLEX Qty: 90 0RF Dose Instruction: TAKE 1 TABLET BY MOUTH DAILY Rx Instructions: TAKE 1 TABLET BY MOUTH DAILY carvedilol 25 mg tablet 25 mg PO BID Qty: 180 1RF Rx Instructions: must administer with a meal/food Date of admission: 11/25/24 15:49 Primary Care Provider: Lauren Luu Admitting Provider: Darrel Friedman Attending physician on admission: Gabbi Santana Condition: Stable Quality VTE Prophylaxis VTE prophylaxis: mechanical ordered Hospitalist MIPS Heart Failure (Exclusion) Patient has history of Heart Transplant or Left Ventricular Assistive Device?: No IF YES, STOP HERE Heart Failure (Qualifier) Patient has current or prior documentation of LVEF less than or equal to 40%, or mod/servere depressed LVSF?: No IF NO, STOP HERE
== END 2024-11-28 13:15 | disposition home or self-care (01) | DRG 203 ==
LOC: ANHED 13:35 → ANH3MEDSUR 15:32
PROVIDERS: Physician Assistant; Admitting Provider Internal Medicine; Emergency Provider Emergency Medicine; PCP Nurse Practitioner Family; Visit Provider Nurse Practitioner Adult Health
DX: J20.5 Acute bronchitis due to respiratory syncytial virus (principal); E78.5 Hyperlipidemia, unspecified; I10 Essential (primary) hypertension; E03.9 Hypothyroidism, unspecified; Z90.49 Acquired absence of other specified parts of digestive tract; Z90.710 Acquired absence of both cervix and uterus; Z86.73 Personal history of transient ischemic attack (TIA), and cerebral infarction without residual deficits; Z87.891 Personal history of nicotine dependence
CPT/HCPCS: 36415; 71046; 71275; 80048; 80053; 83735; 85025; 85610; 85730; 87637; 93005; 94618; 94640; 94667; 94668; 96374; 99285; A9270; G0378; J2919; Q9967

== ENCOUNTER 2025-01-07 12:34 | Outpatient (CLI) | payer OTHER, SELFPAY ==
--- NOTE | 2025-01-08 13:02 | WPDPFTINT ---
PFT Procedure Performed PFT Procedure Performed Spirometry with Pre/Post Bronchodilator Plethysmography (Lung Vol) Diffusing Cap (DLCO) Flow Vol Loop PFT Interpretation Lung volumes were measured with the body plethysmography method. Lung volumes are unremarkable. Spirometry showed normal expiratory flow rates and a normal FEV1 to FVC ratio 69%. Following administration of a bronchodilator there was no significant increase in expiratory flow rates. Lung diffusion capacity was mildly reduced at 59% predicted. Flow volume is unremarkable. Impression: Spirometry lung volumes within the normal range. Mild reduction in lung diffusion capacity.
--- NOTE | 2025-01-08 13:05 | WPDSIXMINUTE ---
Six Minute Walk Procedure Procedure Performed Pulmonary Stress Test (6 min walk) Six Minute Walk Six Minute Walk: This 6 minute walk test was carried out with the patient breathing ambient air. The pre walk baseline oxyhemoglobin saturation was 97%. Patient walked 381 m with no stops during testing. During the walk the oxyhemoglobin saturation remained in the range of 93% to 98%. Impression: No evidence of oxyhemoglobin desaturation on this testing.
== END 2025-01-07 12:35 | disposition home or self-care (01) ==
PROVIDERS: PCP Nurse Practitioner Family; Visit Provider Nurse Practitioner Family
DX: R09.02 Hypoxemia (principal); J45.998 Other asthma
CPT/HCPCS: 94060; 94618; 94726; 94729

== ENCOUNTER 2025-03-28 14:33 | Outpatient (CLI) | payer OTHER, SELFPAY ==
--- NOTE | ~2025-03-28 | DEXA_ITS ---
Bone Density Report Name: SUMAYA TAYLOR Age: 64 Sex: Female Ethnicity: White Date of : 1960 Indication: postmenopausal; screening for osteoporosis; height loss; hysterectomy; Referring Provider: Janki, Ayala Study: Bone densitometry was performed. Exam Date: March 28, 2025 Accession number: [id number] Bone Density: Region BMD T-score Z-score Classification AP Spine(L1-L4) 1.240 1.8 3.4 Normal Femoral Neck (Left) 0.895 0.4 1.9 Normal Total Hip (Left) 1.051 0.9 2.0 Normal Femoral Neck (Right) 0.876 0.2 1.7 Normal Total Hip (Right) 1.056 0.9 2.1 Normal Total Hip Mean 1.054 0.9 2.1 Normal World Health Organization criteria for BMD impression classify patients as: Normal (T-score at or above -1.0), Osteopenia (T-score between -1.0 and -2.5), or Osteoporosis (T-score at or below -2.5). 10-year Fracture Risk: FRAX not reported because: All T-scores for Spine Total, Hip Total, Femoral Neck at or above -1.0 Previous Exams: -- Region Exam Age BMD T-score BMD Change BMD Change Date g/cm2 vs Baseline vs Previous -- AP Spine (L1-L4) 03/28/2025 64 1.240 1.8 -1.7%# 3.0%# 05/28/2020 59 1.205 1.4 -4.5%* -3.6%* 12/19/2015 55 1.250 1.8 -0.9% -0.9% 08/31/2012 52 1.261 1.9 Total Hip(Left) 03/28/2025 64 1.051 0.9 2.0%# 2.1%# 05/28/2020 59 1.030 0.7 -0.1% -0.5% 12/19/2015 55 1.036 0.8 0.4% 0.4% 08/31/2012 52 1.031 0.7 Total Hip(Right) 03/28/2025 64 1.056 0.9 0.4%# 0.4%# 05/28/2020 59 1.052 0.9 0.0% -0.8% 12/19/2015 55 1.060 1.0 0.7% 0.7% 08/31/2012 52 1.052 0.9 -- *Denotes significance at 95% confidence level, LSC for AP Spine = 0.022 g/cm2, LSC for Total Hip = 0.027 g/cm2 # Denotes dissimilar scan types or analysis methods Clinical Information Provided by Patient: Has used the following medications: HRT (i.e. estrogen/hormone therapy), Vitamin D Has the following medical conditions: Hysterectomy Patient maximum height was 71 Menopause Age: 44 Drinks caffeinated beverages Onset of menses at age 13 Number of children 0 Impression: The patient has normal bone mass. Unable to evaluate interval change due to the use of different scan modes. Discussion: BONE DENSITY IS ABOVE THE MINIMUM DESIRABLE LEVEL AT ALL SKELETAL SITES TESTED. This patient?s bone mineral density is above the minimum desirable level (T-score -1.0 or better) at all sites measured. The patient should follow a healthful lifestyle (good nutrition with adequate calcium and vitamin D, and appropriate weight-bearing exercise). Follow-Up: Consider repeating this study in 5 years or sooner if there is some new clinical indication. Reported by: CECY on 03/28/2025 2:53:00 PM. Reviewed, dictated and finalized at location A.
== END 2025-03-28 14:34 | disposition home or self-care (01) ==
PROVIDERS: PCP Nurse Practitioner Family; Visit Provider Nurse Practitioner
DX: Z78.0 Asymptomatic menopausal state (principal)
CPT/HCPCS: 77080